=== PATIENT | male | born 1970 | race Caucasian/White ===

== ENCOUNTER 2018-04-02 11:09 | Inpatient (IN) | payer OTHER ==
[~2018-04-02] VITALS: Ht 177.8 cm; Wt 121.6 kg
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
--- OUTSIDE RECORDS SUMMARY | 2018-04-02 11:15 | XMS REPORT ---
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 Active 292080079 Problem Moderate persistent asthma without complication J45.40 Active 548699153 Problem Essential hypertension I10 Active 31843621 Problem Type 2 diabetes mellitus with diabetic neuropathy E11.40 Active 62468969 Problem Chronic bronchitis J42 Active 60702606 Problem Type 2 diabetes mellitus without complication, without long-term current use of insulin E11.9 Active 998755358 Problem Neuropathy G62.9 Active 935216559 ALLERGIES Unknown Allergies SOCIAL HISTORY No smoking Hx information available PLAN OF CARE VITAL SIGNS MEDICATIONS Medication Instructions Dosage Frequency Start Date End Date Duration Status Levemir 100 UNIT/ML Subcutaneous 2 times a day 35 units 12h Nov, 30 days Active RESULTS No Results PROCEDURES No Known procedures IMMUNIZATIONS No Known Immunizations
--- OUTSIDE RECORDS SUMMARY | 2018-04-02 11:15 | XMS REPORT ---
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 Active 823455191 Problem Moderate persistent asthma without complication J45.40 Active 754790634 Problem Essential hypertension I10 Active 74257864 Problem Type 2 diabetes mellitus with diabetic neuropathy E11.40 Active 80472306 Problem Chronic bronchitis J42 Active 76673855 Problem Type 2 diabetes mellitus without complication, without long-term current use of insulin E11.9 Active 854513025 Problem Neuropathy G62.9 Active 855315018 ALLERGIES No Information SOCIAL HISTORY Never Assessed PLAN OF CARE VITAL SIGNS MEDICATIONS Medication Instructions Dosage Frequency Start Date End Date Duration Status Levemir 100 UNIT/ML Subcutaneous 2 times a day Inject 35 units 12h Nov, 90 days Active Breo Ellipta 200-25 MCG/INH Inhalation Once a day 1 puff 24h Nov, 90 days Active Humalog KwikPen 100 UNIT/ML Subcutaneous 3 times a day Inject 10 units before meals 8h Nov, 90 days Active Trulicity 0.75 MG/0.5ML Subcutaneous once weekly Inject 0.5 ml Nov, 90 days Active RESULTS No Results PROCEDURES No Known procedures IMMUNIZATIONS No Known Immunizations MEDICAL (GENERAL) HISTORY [...]
--- OUTSIDE RECORDS SUMMARY | 2018-04-02 11:15 | XMS REPORT ---
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 Active 217754304 Problem Moderate persistent asthma without complication J45.40 Active 941229705 Problem Essential hypertension I10 Active 72252920 Problem Type 2 diabetes mellitus with diabetic neuropathy E11.40 Active 61572531 Problem Chronic bronchitis J42 Active 47244312 Problem Type 2 diabetes mellitus without complication, without long-term current use of insulin E11.9 Active 610516367 Problem Neuropathy G62.9 Active 218108616 ALLERGIES Unknown Allergies SOCIAL HISTORY No smoking Hx information available PLAN OF CARE VITAL SIGNS MEDICATIONS Unknown Medications RESULTS No Results PROCEDURES No Known procedures IMMUNIZATIONS No Known Immunizations
--- OUTSIDE RECORDS SUMMARY | 2018-04-02 11:15 | XMS REPORT ---
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 Active 175939951 Problem Moderate persistent asthma without complication J45.40 Active 954897116 Problem Essential hypertension I10 Active 25029664 Problem Type 2 diabetes mellitus with diabetic neuropathy E11.40 Active 79551019 Problem Chronic bronchitis J42 Active 67898948 Problem Type 2 diabetes mellitus without complication, without long-term current use of insulin E11.9 Active 690507711 Problem Neuropathy G62.9 Active 559795299 ALLERGIES Substance Reaction Event Type Date Status Gabapentin suicidal ideations Drug Allergy Nov, Active SOCIAL HISTORY Never Assessed PLAN OF CARE Activity Details Follow Up 3 Months Reason:DM VITAL SIGNS Height 70 in 2016-12-12 Weight 289.0 lbs 2016-12-12 Temperature 98.5 degrees Fahrenheit 2016-12-12 Heart Rate 112 bpm 2016-12-12 Respiratory Rate 20 2016-12-12 BMI 41.46 kg/m2 2016-12-12 Blood pressure systolic 136 mmHg 2016-12-12 Blood pressure diastolic 90 mmHg 2016-12-12 MEDICATIONS Medication Instructions Dosage Frequency Start Date End Date Duration Status Breo Ellipta 200-25 MCG/INH Inhalation Once a day 1 puff 24h Nov, Active Lisinopril 20 mg Orally Once a day 1 tablet 24h Nov, 90 days Active Humalog KwikPen 100 UNIT/ML Subcutaneous 3 times a day before meals. Inject 10 units Nov, Active Trulicity 0.75 MG/0.5ML 0.5 ml Nov, Active Levemir 100 UNIT/ML Subcutaneous 2 times a [...]
--- OUTSIDE RECORDS SUMMARY | 2018-04-02 11:15 | XMS REPORT ---
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 Active 849294992 Problem Moderate persistent asthma without complication J45.40 Active 497572304 Problem Essential hypertension I10 Active 77879061 Problem Type 2 diabetes mellitus with diabetic neuropathy E11.40 Active 42024994 Problem Chronic bronchitis J42 Active 00968812 Problem Type 2 diabetes mellitus without complication, without long-term current use of insulin E11.9 Active 843918441 Problem Neuropathy G62.9 Active 595523958 ALLERGIES Unknown Allergies SOCIAL HISTORY No smoking Hx information available PLAN OF CARE VITAL SIGNS MEDICATIONS Unknown Medications RESULTS No Results PROCEDURES No Known procedures IMMUNIZATIONS No Known Immunizations
--- NOTE | 2018-04-02 11:31 | ED Cough/URI ---
General Chief Complaint: Respiratory Problems Stated Complaint: BREATHING DIFFICULTIES,COUGH,LEGS SWOLLEN Source: patient Exam Limitations: no limitations History of Present Illness Date Seen by Provider: Apr 02, 2018 Time Seen by Provider: 11:28 Initial Comments to ER with a 3 week history ofcough, shortness of breath. He's been unable to sleep at night due to the cough. He reports yellowish colored sputum, general malaise, shortness of breath, swelling in both of his legs. He sees Dr. Floyd Cooper has not seen her for this issue. States that he has diabetes but does not take any medications. Severity/Quality: moderate Associated Symptoms: cough, fever/chills, shortness of breath Allergies and Home Medications Allergies Coded Allergies: gabapentin (Verified Allergy, Unknown, 04/02/18) Patient Home Medication List Home Medication List Reviewed: Yes Review of Systems Constitutional: see HPI EENTM: see HPI Respiratory: see HPI, cough, short of breath Cardiovascular: edema Genitourinary: no symptoms reported Musculoskeletal: no symptoms reported Skin: no symptoms reported Psychiatric/Neurological: No Symptoms Reported Hematologic/Lymphatic: No Symptoms Reported Past Kyminqx-Nwnekd-Aysbnf Hx Patient Social History Recent Foreign Travel: No Contact w/Someone Who Travel: No Physical Exam Vital Signs Vital Signs - First Documented 04/02/18 11:20 Temp 97.7 Pulse 109 Resp 18 B/P (MAP) 141/102 (115) Pulse Ox 93 O2 Delivery Room Air Capillary Refill : General Appearance: WD/WN, no apparent distress, other (pale,frail-appearing. Atrophied thenar eminences both hands. Walks with a cane.) HEENT: PERRL/EOMI, normal ENT inspection Respiratory: normal breath sounds, no respiratory distress, no accessory muscle use Cardiovascular: regular rate, rhythm, no murmur, tachycardia Gastrointestinal: normal bowel sounds, non tender, soft Extremities: pedal edema (1+ bilateral lower extremities) Neurologic/Psychiatric: alert, normal mood/affect, oriented x 3 Skin: warm/dry, other (pale) Progress/Results/Core Measures Suspected Sepsis SIRS Temperature: Pulse: Respiratory Rate: Laboratory Tests 04/02/18 11:25: White Blood Count 8.0 Blood Pressure / Mean: Laboratory Tests 04/02/18 11:25: Creatinine 0.77, Platelet Count 345, Total Bilirubin 0.4 Results/Orders Lab Results Laboratory Tests Test 04/02/18 11:25 Range/Units White Blood Count 8.0 4.3-11.0 10^3/uL Red Blood Count 4.61 4.35-5.85 10^6/uL Hemoglobin 13.4 13.3-17.7 G/DL Hematocrit 39 L 40-54 % Mean Corpuscular Volume 85 80-99 FL Mean Corpuscular Hemoglobin 29 25-34 PG Mean Corpuscular Hemoglobin Concent 34 32-36 G/DL Red Cell Distribution Width 13.6 10.0-14.5 % Platelet Count 345 130-400 10^3/uL Mean Platelet Volume 8.7 7.4-10.4 FL Neutrophils (%) (Auto) 74 42-75 % Lymphocytes (%) (Auto) 15 12-44 % Monocytes (%) (Auto) 10 0-12 % Eosinophils (%) (Auto) 1 0-10 % Basophils (%) (Auto) 0 0-10 % Neutrophils # (Auto) 5.9 1.8-7.8 X 10^3 Lymphocytes # (Auto) 1.2 1.0-4.0 X 10^3 Monocytes # (Auto) 0.8 0.0-1.0 X 10^3 Eosinophils # (Auto) 0.1 0.0-0.3 10^3/uL Basophils # (Auto) 0.0 0.0-0.1 10^3/uL D-Dimer 2.15 H 0.00-0.49 UG/ML Sodium Level 134 L 135-145 MMOL/L Potassium Level 3.6 3.6-5.0 MMOL/L Chloride Level 93 L 98-107 MMOL/L Carbon Dioxide Level 29 21-32 MMOL/L Anion Gap 12 5-14 MMOL/L Blood Urea Nitrogen 7 7-18 MG/DL Creatinine 0.77 0.60-1.30 MG/DL Estimat Glomerular Filtration Rate > 60 BUN/Creatinine Ratio 9 Glucose Level 428 *H 70-105 MG/DL Calcium Level 9.2 8.5-10.1 MG/DL Total Bilirubin 0.4 0.1-1.0 MG/DL Aspartate Amino Transf (AST/SGOT) 13 5-34 U/L Alanine Aminotransferase (ALT/SGPT) 13 0-55 U/L Alkaline Phosphatase 90 40-136 U/L Troponin I < 0.30 <0.30 NG/ML B-Type Natriuretic Peptide 34.2 <100.0 PG/ML Total Protein 7.7 6.4-8.2 GM/DL Albumin 3.3 3.2-4.5 GM/DL My Orders Orders - APPLE DELA CRUZ APRN Cbc With Automated Diff (04/02/18 11:26) Comprehensive Metabolic Panel (04/02/18 11:26) Troponin I (04/02/18 11:26) Ekg Tracing (04/02/18 11:26) Chest Pa/Lat (2 View) (04/02/18 11:26) Ua Culture If Indicated (04/02/18 11:26) BNP (04/02/18 11:26) Iv Heplock-Insert (Order) (04/02/18 11:26) Fibrin Degradation Products (04/02/18 11:35) Ct Angio Chest W (04/02/18 11:55) Iohexol Injection (Omnipaque 350 Mg/Ml 1 (04/02/18 12:00) Ns (Ivpb) (Sodium Chloride 0.9%) (04/02/18 12:00) Pharmacy Communication (Pharmacy Communi (04/02/18 12:00) Ns Iv 1000 Ml (Sodium Chloride 0.9%) (04/02/18 12:15) Insulin (Regular) Human (Humulin R (Per (04/02/18 12:15) Ondansetron Injection (Zofran Injectio (04/02/18 12:45) Medications Given in ED Current Medications Medications Dose Ordered Sig/Nena Route Start Time Stop Time Status Last Admin Dose Admin Insulin Human Regular 10 unit ONCE ONCE IV 04/02/18 12:15 04/02/18 12:16 DC 04/02/18 12:30 10 UNIT Iohexol 125 ml ONCE ONCE IV 04/02/18 12:00 04/02/18 12:01 DC 04/02/18 12:38 125 ML Ondansetron HCl 4 mg ONCE ONCE IVP 04/02/18 12:45 04/02/18 12:46 DC 04/02/18 12:43 4 MG Sodium Chloride 250 ml ONCE ONCE IV 04/02/18 12:00 04/02/18 12:01 DC 04/02/18 12:38 80 ML Vital Signs/I&O 04/02/18 11:20 Temp 97.7 Pulse 109 Resp 18 B/P (MAP) 141/102 (115) Pulse Ox 93 O2 Delivery Room Air Capillary Refill : Diagnostic Imaging Diagonstic Imaging: Xray Plain Films/CT/US/NM/MRI: chest Comments NAME: VANESSA PÉREZ [facility] REC#: [id number] PT STATUS: REG ER : 1970 PHYSICIAN: APPLE DELA CRUZ APRN ADMIT DATE: 04/02/18/ER Draft Date of Exam:04/02/18 CHEST PA/LAT (2 VIEW) INDICATION: Respiratory distress with difficulty breathing PA and lateral chest Heart size and pulmonary vascularity are normal. There is a right pleural effusion and there is partial right lower lobe atelectasis. Left lung is clear. Heart size and pulmonary vascularity are normal. IMPRESSION: Right lower lobe atelectasis with associated effusion. Dictated on workstation # [id number] Dict: 04/02/18 1144 Trans: 04/02/18 1148 [facility] [id number] Interpreted by: CHUYITA LUNDBERG MD Electronically signed by: Departure Communication (Admissions) Time/Spoke to Admitting Phy: 13:[address] Brown. She agrees to admit. We will consult Dr. De Leon. Discussed the CT finding with Dr. Abbasi. States the right lower lobe appears to be collapsed and he feels the patient would benefit from bronchoscopy to determine whether this is from neoplasm with associated adenopathy or if this is from mucus plugging with reactive adenopathy. Time/Spoke to Consulting Phy: 13:[address] De Leon of consult.he agrees. Impression Primary Impression: RLL pneumonia Additional Impression: Hilar lymphadenopathy Disposition: ADMITTED INPATIENT Condition: Stable Admissions Decision to Admit Reason: Admit from ER (General) Decision to Admit/Date: Apr 02, 2018 Time/Decision to Admit Time: 13:41 Departure-Patient Inst. Decision time for Depature: 13:41 Referrals: FLOYD MONTELONGO MD (PCP/Family) Primary Care Physician APPLE DELA CRUZ APRN Apr 02, 2018 11:31
[2018-04-02 11:36] LABS: BASOPHILS % (AUTO) 0 % (0-10); EOSINOPHILS # (AUTO) 0.1 10^3/uL (0.0-0.3); EOSINOPHILS % (AUTO) 1 % (0-10); HEMATOCRIT 39 % (40-54); HEMOGLOBIN 13.4 G/DL (13.3-17.7); LYMPHOCYTES # (AUTO) 1.2 X 10^3 (1.0-4.0); LYMPHOCYTES % (AUTO) 15 % (12-44); MEAN CORPUSCULAR HEMOGLOBIN 29 PG (25-34); MEAN CORPUSCULAR HGB CONC 34 G/DL (32-36); MEAN CORPUSCULAR VOLUME 85 FL (80-99); MEAN PLATELET VOLUME 8.7 FL (7.4-10.4); MONOCYTES # (AUTO) 0.8 X 10^3 (0.0-1.0); MONOCYTES % (AUTO) 10 % (0-12); NEUTROPHILS # (AUTO) 5.9 X 10^3 (1.8-7.8); NEUTROPHILS % (AUTO) 74 % (42-75); PLATELET COUNT 345 10^3/uL (130-400); RED BLOOD COUNT 4.61 10^6/uL (4.35-5.85); RED CELL DISTRIBUTION WIDTH 13.6 % (10.0-14.5)
--- NOTE | 2018-04-02 11:48 | Diagnostic Imaging Report ---
INDICATION: Respiratory distress with difficulty breathing PA and lateral chest Heart size and pulmonary vascularity are normal. There is a right pleural effusion and there is partial right lower lobe atelectasis. Left lung is clear. Heart size and pulmonary vascularity are normal. IMPRESSION: Right lower lobe atelectasis with associated effusion. Dictated by: Dictated on workstation # [id number]
[2018-04-02 11:58] LABS: ALANINE AMINOTRANSFERASE 13 U/L (0-55); ALBUMIN 3.3 GM/DL (3.2-4.5); ALKALINE PHOSPHATASE 90 U/L (40-136); BILIRUBIN,TOTAL 0.4 MG/DL (0.1-1.0); BUN/CREATININE RATIO 9; CALCIUM 9.2 MG/DL (8.5-10.1); CARBON DIOXIDE 29 MMOL/L (21-32); CHLORIDE 93 MMOL/L (98-107); CREATININE SERUM 0.77 MG/DL (0.60-1.30); GFR ESTIMATED > 60; POTASSIUM 3.6 MMOL/L (3.6-5.0); SODIUM 134 MMOL/L (135-145); TOTAL PROTEIN 7.7 GM/DL (6.4-8.2)
[2018-04-02 11:59] LABS: GLUCOSE 428 MG/DL (70-105)
[2018-04-02] MEDS ORDERED: IOHEXOL 350 MG/ML 150 ML (OMNIPAQUE 350) VIAL IV ONE (12:00)
[2018-04-02] MEDS ORDERED: NS 250 ML (IVPB) BAG IV ONE (12:00)
[2018-04-02] MEDS ORDERED: inSUlin (REGULAR) HUMAN 1 UNIT/0.01 ML (CHARGE PER UNIT) IV ONE (12:15)
[2018-04-02] MEDS ORDERED: NS IV 1000 ML 1,000 ML IV SCH (12:15)
[2018-04-02] MEDS ORDERED: ONDANSETRON 4 MG/2 ML (SDV) Z0FRAN IVP ONE (12:45)
--- NOTE | 2018-04-02 14:14 | Diagnostic Imaging Report ---
PROCEDURE: CT angiography of the chest with contrast. TECHNIQUE: Multiple contiguous axial images were obtained through the chest after uneventful bolus administration of intravenous contrast. Reconstructed CTA MIP acquisitions were also performed. INDICATION: Shortness of breath. There are no previous CTA chest examinations available for comparison. The plain film examination of the chest performed earlier today noted right lower lobe pneumonia/atelectasis and a right pleural effusion. On this study there is near-complete collapse of the right lower lobe. There is also fluid in the right lung measuring 2.1 CM in maximum depth.. There do appear to be a number of enlarged lymph nodes in the subcarinal region and in the right hilum. This includes a 2.3 x 3.9 CM subcarinal lymph node and a 1.9 x 2.7 CM right hilar lymph node. These lymph nodes are nonspecific but worrisome for neoplasm. The possibility that there is an endobronchial lesion or a mucous plug not visualized on this exam should also be considered. Bronchoscopy would be recommended for further evaluation. The lungs are otherwise clear and well aerated. There is no other evidence for pneumonia or for a pleural effusion and there is no sign of failure. There is no parenchymal lung mass identified either. Unfortunately, the pulmonary arteries are not well opacified difficult to evaluate for an embolus. There is no obvious defect within the pulmonary arteries to indicate a pulmonary embolus. Aorta is not normally dilated and there is no sign of a dissection. The heart size is within normal limits. A few sparse coronary artery calcifications are evident. There are also a few borderline enlarged pretracheal nodes on the right. The largest of these measures 1.2 x 1.6 CM. These are nonspecific in appearance. The thyroid gland is generally unremarkable where visualized. The sections through the upper abdomen show that the liver is of lower density than usually seen. The liver is not visualized in its entirety but t does appear to be at least borderline enlarged. The low density appearance of liver does suggest fatty metamorphosis. The upper abdomen is otherwise unremarkable for an acute abnormality. The bone windows show no sign of a fracture or of for a destructive lesion. IMPRESSION: 1. There is near-complete collapse of the right lower lobe with a small right effusion. The reason for the collapsed right lower lobe is not certain could be secondary to a neoplastic mass as there does appear to be right hilar and subcarinal adenopathy. The possibility of a mucous plug should also be considered. Bronchoscopy would be recommended for further study. 2. There is no acute cardiopulmonary abnormality noted otherwise. The pulmonary arteries were not well opacified however and difficult to evaluate for an embolus. 3. The liver is enlarged and low density appearance of liver does suggest fatty metamorphosis. These results were discussed with Alex Herman APRN in the ER. Dictated by: Dictated on workstation # [id number]
[2018-04-02 14:35] VITALS: BP 144/72
[2018-04-02] MEDS ORDERED: AZITHROMYCIN 500 MG/NS 250 ML IVPB IV NR ×2 (14:42)
[2018-04-02] MEDS ORDERED: CATHETER FLUSH 10 ML SYR IV PRN (14:45)
[2018-04-02 14:46] VITALS: BP 144/72
[2018-04-02] MEDS ORDERED: RT-ALBUTEROL/IPRATROPIUM 3 ML (DUONEB) VIAL ONE (15:00)
[2018-04-02] MEDS: cefTRIAXone 1 GM/NS 50 ML IVPB IV SCH ×2 (15:03)
[2018-04-02] MEDS: NS IV 1000 ML 1,000 ML IV SCH (15:06)
[2018-04-02] MEDS: RT-ALBUTEROL/IPRATROPIUM 3 ML (DUONEB) VIAL INH SCH ×3 (15:14→22:17)
[2018-04-02] MEDS ORDERED: RT-ALBUTEROL/IPRATROPIUM 3 ML (DUONEB) VIAL INH PRN (15:15)
[2018-04-02] MEDS: KETOROLAC 30 MG/ML VIAL IVP PRN (15:31)
[2018-04-02] MEDS: guaiFENesin (MUCINEX) 600 MG TAB PO SCH ×2 (15:31→21:23)
[2018-04-02 15:55] VITALS: BP 164/82
[2018-04-02] MEDS ORDERED: inSUlin (REGULAR) HUMAN 1 UNIT/0.01 ML (CHARGE PER UNIT) SC SCH (16:00)
[2018-04-02] MEDS: BENZONATATE 100 MG (TESSALON) CAPSULE PO SCH ×2 (16:04→21:23)
[2018-04-02] MEDS: HYDROCODONE/CHLOR 10MG/5 ML (TUSSIONEX SUSP) 5ML UDC PO PRN (16:05)
[2018-04-02 19:15] VITALS: BP 115/59
[2018-04-02] MEDS ORDERED: ALPRAZolam 0.25 MG (XANAX) TAB PO PRN (20:30)
[2018-04-02] MEDS ORDERED: ACETAMINOPHEN 500 MG TAB (TYLENOL) PO PRN (20:30)
[2018-04-02] MEDS ORDERED: IBUPROFEN TABLET 200 MG TAB PO PRN (20:30)
[2018-04-02] MEDS ORDERED: HYDROCODONE/CHLOR 10MG/5 ML (TUSSIONEX SUSP) 5ML UDC PO PRN (21:00)
[2018-04-02] MEDS ORDERED: BENZONATATE 100 MG (TESSALON) CAPSULE PO SCH (21:00)
[2018-04-02] MEDS: inSUlin ASPART (NovoLOG) 1 UNIT/0.01 ML (CHARGE PER UNIT) SC SCH (21:24)
[2018-04-02] MEDS: inSUlin DETERMIR 1 UNIT/0.01 ML (LEVEMIR) CHARGE PER UNIT SQ SCH (21:24)
[2018-04-03] VITALS (7 sets, daily range): BP systolic 123–145; BP diastolic 75–86
[2018-04-03] MEDS: NS IV 1000 ML 1,000 ML IV SCH ×2 (00:26→08:02)
[2018-04-03] MEDS: RT-ALBUTEROL/IPRATROPIUM 3 ML (DUONEB) VIAL INH SCH ×6 (02:01→21:51)
[2018-04-03] MEDS: KETOROLAC 30 MG/ML VIAL IVP PRN ×3 (04:38→20:50)
[2018-04-03] MEDS: HYDROCODONE/CHLOR 10MG/5 ML (TUSSIONEX SUSP) 5ML UDC PO PRN ×2 (04:41→15:48)
--- NOTE | 2018-04-03 05:45 | Pulmonary Consultation ---
History of Present Illness History of Present Illness Date of Consultation 04/03/18 05:40 Time Seen by Provider: 05:40 Date of Admission History of Present Illness 47yo with hx of morbid obesity, DM, noncompliant with medications presented to ED secondary to worsening SOB, and cough. He has had a SPC with yellow sputum that has been waking him up at night. CT scan shows small right pleural effusion , collapse of RML secondary to mass vs mucous plugging. No prior hx like this before. Pt states he has been coughing up red/bloody mucous. Pt has lost 20lbs. He does admit to dysphagia. He states he choked on food last night but denies any possible aspiration prior to admission. I am consulted for pulmonary management. Allergies and Home Medications Allergies Coded Allergies: gabapentin (Verified Allergy, Unknown, 04/02/18) Home Medications No Active Prescriptions or Reported Meds Past Srmsuzf-Aibazn-Zuxdzx Hx Patient Social History Alcohol Use: Rarely Uses Number of Drinks Today: 0 Recreational Drug Use: No Smoking Status: Former Smoker Former Smoker, Quit: Oct 28, 2007 2nd Hand Smoke Exposure: No Recent Foreign Travel: No Contact w/Someone Who Travel: No Recent Infectious Disease Expo: No Recent Hopitalizations: No Physical Abuse: No Sexual Abuse: No Seasonal Allergies Seasonal Allergies: No Past Medical History Surgeries: Yes (RIGHT ARM( TITANIUM IRON)) Orthopedic Respiratory: Yes (WHEN CHILD) Asthma, Pneumonia, Chronic Bronchitis, Sleep Apnea Currently Using CPAP: No Currently Using BIPAP: No Cardiac: No Neurological: Yes (LEFT DROP FOOT, SCIATIA,) Genitourinary: No Gastrointestinal: No Musculoskeletal: Yes Arthritis, Foot Drop, Fractures Endocrine: Yes Diabetes, Non-Insulin dep HEENT: No Cancer: No Psychosocial: Yes Anxiety, Depression Nursing Suicide Risk Score: 0 Integumentary: No Blood Disorders: No Family Medical History Cardiovascular disease 19 FATHER FH: cancer 19 MOTHER Review of Systems Time Seen by Provider: 06:15 Constitutional: Weakness, Malaise; No: Fever, Chills, Sweats, Other Eyes: No: Pain, Vision change, Conjunctivae inflammation, Eyelid inflammation, Other, Redness ENT: Nose congestion; No: Ear pain, Ear discharge, Nose pain, Nose discharge, Mouth pain, Mouth swelling, Throat pain, Throat swelling, Other Respiratory: Cough, Shortness of breath, SOB with excertion, Wheezing, Hemoptysis Cardiovascular: Paroxysmal Noc. Dyspnea Gastrointestinal: No: Nausea, Vomiting, Abdominal Pain, Diarrhea, Constipation , Melena, Hematochezia, Other Genitourinary: No Dysuria, No Frequency, No Incontinence, No Hematuria, No Retention, No Other Neurological: Weakness Exam Exam Vital Signs Date Time Temp Pulse Resp B/P (MAP) Pulse Ox O2 Delivery O2 Flow Rate FiO2 04/03/18 02:01 Room Air 04/03/18 00:00 97.5 98 18 144/82 (102) 97 Room Air 04/02/18 22:17 94 Room Air 04/02/18 20:15 Room Air 04/02/18 19:15 97.7 111 20 115/59 (77) 92 Room Air 04/02/18 18:59 93 Room Air 04/02/18 16:33 94 Room Air 04/02/18 15:55 98.9 104 18 164/82 (109) 94 Room Air 04/02/18 15:16 93 Room Air 04/02/18 15:15 93 04/02/18 14:46 97.2 105 22 144/72 (96) 94 Room Air 04/02/18 14:35 97.2 103 22 144/72 (96) 94 Room Air 04/02/18 14:20 97.7 109 18 141/102 93 04/02/18 14:09 97.7 109 18 141/102 (115) 93 04/02/18 11:20 97.7 109 18 141/102 (115) 93 Room Air I & O 04/03/18 07:00 Intake Total 2340 ml Balance 2340 ml General Appearance: No Apparent Distress, WD/WN, Anxious HEENT: PERRL/EOMI, Normal ENT Inspection, Pharynx Normal Neck: Full Range of Motion, Normal Inspection, Non Tender, Supple Respiratory: Chest Non Tender, No Accessory Muscle Use, No Respiratory Distress , Decreased Breath Sounds; No Respiratory Distress Cardiovascular: Regular Rate, Rhythm, No Edema, No Gallop Capillary Refill: Less Than 3 Seconds Gastrointestinal: normal bowel sounds, non tender, soft Extremity: Normal Capillary Refill, Normal Inspection Neurologic/Psychiatric: Alert, Oriented x3 Skin: Normal Color, Warm/Dry Lymphatic: No Adenopathy Results Lab Laboratory Tests 04/02/18 11:25 Assessment/Plan Assessment/Plan Atelectasis with endobronchial mass vs mucous plugging -Pt needs bronchoscopy - bronch for tomorrow morning 7AM Dysphagia -Will make NPO for now -swallow evaluation Morbid obesity with probable undiagnosed SOLOMON -Will work up as out patient Hyponatremia -monitor Labs and radiology reviewed. Will d/w Dr. Brown and also endoscopy to schedule bronchoscopy. 255 RAFIQ DE LA FUENTE DO Apr 03, 2018 05:45
[2018-04-03 05:54] LABS: BASOPHILS % (AUTO) 0 % (0-10); EOSINOPHILS # (AUTO) 0.1 10^3/uL (0.0-0.3); EOSINOPHILS % (AUTO) 2 % (0-10); HEMATOCRIT 40 % (40-54); HEMOGLOBIN 12.9 G/DL (13.3-17.7); LYMPHOCYTES # (AUTO) 1.8 X 10^3 (1.0-4.0); LYMPHOCYTES % (AUTO) 25 % (12-44); MEAN CORPUSCULAR HEMOGLOBIN 28 PG (25-34); MEAN CORPUSCULAR HGB CONC 32 G/DL (32-36); MEAN CORPUSCULAR VOLUME 87 FL (80-99); MONOCYTES # (AUTO) 0.7 X 10^3 (0.0-1.0); MONOCYTES % (AUTO) 10 % (0-12); NEUTROPHILS # (AUTO) 4.6 X 10^3 (1.8-7.8); NEUTROPHILS % (AUTO) 64 % (42-75); PLATELET COUNT 342 10^3/uL (130-400); RED BLOOD COUNT 4.57 10^6/uL (4.35-5.85); RED CELL DISTRIBUTION WIDTH 14.1 % (10.0-14.5); WHITE BLOOD COUNT 7.3 10^3/uL (4.3-11.0)
[2018-04-03] MEDS: inSUlin ASPART (NovoLOG) 1 UNIT/0.01 ML (CHARGE PER UNIT) SC SCH ×4 (05:59→20:51)
[2018-04-03 06:46] LABS: ALANINE AMINOTRANSFERASE 11 U/L (0-55); ALBUMIN 3.1 GM/DL (3.2-4.5); ALKALINE PHOSPHATASE 76 U/L (40-136); BILIRUBIN,TOTAL 0.3 MG/DL (0.1-1.0); BUN/CREATININE RATIO 9; CALCIUM 8.7 MG/DL (8.5-10.1); CARBON DIOXIDE 26 MMOL/L (21-32); CHLORIDE 99 MMOL/L (98-107); CREATININE SERUM 0.64 MG/DL (0.60-1.30); GFR ESTIMATED > 60; GLUCOSE 204 MG/DL (70-105); POTASSIUM 3.2 MMOL/L (3.6-5.0); SODIUM 139 MMOL/L (135-145); TOTAL PROTEIN 7.1 GM/DL (6.4-8.2)
[2018-04-03] MEDS: AZITHROMYCIN 250 MG TAB (ZITHROMAX) PO SCH (08:02)
[2018-04-03] MEDS: BENZONATATE 100 MG (TESSALON) CAPSULE PO SCH ×3 (08:02→20:50)
[2018-04-03] MEDS: guaiFENesin (MUCINEX) 600 MG TAB PO SCH ×2 (08:04→20:50)
[2018-04-03] MEDS: cefTRIAXone 1 GM/NS 50 ML IVPB IV SCH ×2 (08:05)
[2018-04-03] MEDS: KCL 10 MEQ TAB (MICRO K) PO SCH ×3 (10:38→12:24)
--- NOTE | 2018-04-03 10:50 | History & Physical-Hospitalist ---
History of Present Illness HPI/Chief Complaint CC: Cough with chest pain HPI: This is a 47-year-old white male clinic patient of Dr. Langston in [place] who has a past medical history of diabetes insulin-dependent but doesn't take insulin because of lack of insurance who presented to the ER with chest pain and cough found to have right lower lobe pneumonia with effusion and complete collapse of the right lower part of his lung due to effusion versus mass versus mucous plug. His cough is intense I given him antitussives that it helped a small amount. Dr. De Leon Fam consultation we'll perform bronchoscopy tomorrow and management will ensue from those results. He was placed on Rocephin and Zithromax for community-acquired pneumonia but microbiology just notified me that the blood cultures show gram-negative alyson that could very well be Pseudomonas so we will discontinue Rocephin placed on cefepime and will evaluate the sensitivities to that culture tomorrow and narrow spectrum if needed. His sugar is been in the 400s so initiated insulin hemoglobin A1c is pending but likely will be greater than 16. Patient has had recurrent pneumonias and bronchial infections but this is the third episode in the last 2 months and is just getting worse and worse. Patient having signs of suspicion for bronchiectasis so will further evaluate and await for bronchoscopy performed by Dr. De Leon tomorrow. Source: patient Date Seen 04/03/18 Time Seen by Provider: 09:30 Attending Physician Ciera Brown Katrina M MD Referring Physician Date of Admission Apr 02, 2018 at 13:37 Home Medications & Allergies Home Medications Reviewed patient Home Medication Reconciliation performed by pharmacy medication reconciliations library media technician and/or nursing. Patients Allergies have been reviewed. Allergies Allergies Coded Allergies gabapentin (Verified Allergy, Unknown, 04/02/18) Past Smeddda-Enxumt-Yalqmo Hx Past Med/Social Hx: Reviewed Nursing Past Med/Soc Hx, Reviewed and Corrections made Patient Social History Marrital Status: Employed/Student: unemployed Alcohol Use: Rarely Uses Number of Drinks Today: 0 Recreational Drug Use: No Smoking Status: Former Smoker (quit 2007) Former Smoker, Quit: Oct 28, 2007 2nd Hand Smoke Exposure: No Physical Abuse Screen: No Sexual Abuse: No Recent Foreign Travel: No Contact w/other who traveled: No Recent Hopitalizations: No Recent Infectious Disease Expo: No Seasonal Allergies Seasonal Allergies: No Past Medical History Surgeries: Orthopedic Respiratory: Pneumonia Currently Using CPAP: No Currently Using BIPAP: No Musculoskeletal: Arthritis, Foot Drop, Fractures Endocrine: Diabetes, Insulin dep Psychosocial: Anxiety, Depression History of Blood Disorders: No Family History Cardiovascular disease 19 FATHER FH: cancer 19 MOTHER Diabetes Review of Systems Constitutional: see HPI, chills, diaphoresis, dizziness, fever, malaise, weakness EENTM: no symptoms reported Respiratory: cough, dyspnea on exertion, phlegm, wheezing Cardiovascular: chest pain Gastrointestinal: no symptoms reported Genitourinary: no symptoms reported Musculoskeletal: no symptoms reported Skin: no symptoms reported Psychiatric/Neurological: No Symptoms Reported All Other Systems Reviewed Negative Unless Noted: Yes Physical Exam Physical Exam Vital Signs Vital Signs - First Documented 04/02/18 11:20 Temp 97.7 Pulse 109 Resp 18 B/P (MAP) 141/102 (115) Pulse Ox 93 O2 Delivery Room Air Capillary Refill : Less Than 3 Seconds General Appearance: WD/WN, Chronically ill, Mild Distress, Obese Eyes: Bilateral Eye Normal Inspection, Bilateral Eye PERRL HEENT: PERRL/EOMI, Normal ENT Inspection, Pharynx Normal Neck: Full Range of Motion, Normal Inspection, Non Tender, Supple, Carotid Bruit Respiratory: Chest Non Tender, No Accessory Muscle Use, No Respiratory Distress , Crackles, Decreased Breath Sounds, Wheezing Cardiovascular: Regular Rate, Rhythm, No Edema, No Gallop, No JVD, No Murmur, Normal Peripheral Pulses Gastrointestinal: Normal Bowel Sounds, No Organomegaly, No Pulsatile Mass, Non Tender, Soft Back: Normal Inspection, No CVA Tenderness, No Vertebral Tenderness Extremity: Normal Capillary Refill, Normal Inspection, Normal Range of Motion, Non Tender, No Calf Tenderness, No Pedal Edema Neurologic/Psychiatric: Alert, Oriented x3, No Motor/Sensory Deficits, Depressed Affect Skin: Normal Color, Warm/Dry Lymphatic: No Adenopathy Results Results/Procedures Labs Laboratory Tests 04/02/18 11:25 04/03/18 05:00 Patient resulted labs reviewed. Assessment/Plan Admission Diagnosis Assessment: Right lower lobe effusion with collapse of lung tissue due to possible mass Suspicion for bronchiectasis Diabetes mellitus out of control due to noncompliance with insulin Plan: DC Rocephin and start cefepime Bronchoscopy tomorrow Antitussives Hep-locked IV fluid Ambulate Admission Status: Inpatient Order (span 2 midnights) Reason for Inpatient Admission: Lung mass and BCx + will require 3 days hospital stay Diagnosis/Problems Diagnosis/Problems (1) RLL pneumonia Status: Acute (2) Hilar lymphadenopathy Status: Acute (3) Mucus plugging of bronchi Status: Acute (4) Lung mass Status: Acute (5) Diabetes mellitus Status: Chronic Qualifiers: Diabetes mellitus type: type 2 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: with certified massage therapist use Diabetes mellitus complication status: without complication Qualified Codes: E11.9 - Type 2 diabetes mellitus without complications; 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
[2018-04-03] MEDS: CEFEPIME INJECTION 2,000 MG in NS (IVPB) 50 ML IV SCH ×2 (12:21→23:35)
[2018-04-03] MEDS ORDERED: FLUT1DIS26 IH (13:10)
[2018-04-03] MEDS ORDERED: INSU100I29 SQ (13:10)
[2018-04-03] MEDS: fentaNYL INJECTION 100 MCG/2 ML AMP IVP PRN ×2 (15:48→22:07)
[2018-04-03] MEDS: inSUlin DETERMIR 1 UNIT/0.01 ML (LEVEMIR) CHARGE PER UNIT SQ SCH (20:50)
[2018-04-04] MEDS: RT-ALBUTEROL/IPRATROPIUM 3 ML (DUONEB) VIAL INH SCH ×3 (01:32→10:29)
[2018-04-04 03:35] VITALS: BP 131/74
--- NOTE | 2018-04-04 05:42 | Pulmonary Progress Note ---
Subjective Time Seen by Provider: 05:42 Subjective/Events-last exam No complications noted. Focused Exam Lactate Level 04/02/18 13:55: Lactic Acid Level 1.19 Exam Exam Vital Signs Date Time Temp Pulse Resp B/P (MAP) Pulse Ox O2 Delivery O2 Flow Rate FiO2 04/04/18 03:35 97.7 87 18 131/74 (93) 96 Room Air 04/04/18 01:33 96 Room Air 04/03/18 23:53 97.3 96 18 133/75 (94) 96 Room Air 04/03/18 21:51 96 Room Air 04/03/18 21:00 Room Air 04/03/18 20:32 97.6 109 16 139/76 (97) 95 04/03/18 18:50 95 Room Air 04/03/18 16:43 97.8 111 16 142/85 (104) 97 Room Air 04/03/18 14:22 93 Room Air 04/03/18 11:55 97.6 108 22 123/78 (93) 94 Room Air 04/03/18 10:35 95 Room Air 04/03/18 08:00 96.4 88 18 145/86 (105) 95 Room Air 04/03/18 06:44 94 Room Air I & O 04/04/18 07:00 Intake Total 3260 ml Balance 3260 ml General Appearance: WD/WN, Chronically ill, Mild Distress, Obese HEENT: PERRL/EOMI, Normal ENT Inspection, Pharynx Normal Neck: Full Range of Motion, Normal Inspection, Non Tender, Supple, Carotid Bruit Respiratory: Chest Non Tender, No Accessory Muscle Use, No Respiratory Distress , Crackles, Decreased Breath Sounds, Wheezing Cardiovascular: Regular Rate, Rhythm, No Edema, No Gallop, No JVD, No Murmur, Normal Peripheral Pulses Capillary Refill: Less Than 3 Seconds Gastrointestinal: normal bowel sounds, non tender, soft Extremity: Normal Capillary Refill, Normal Inspection, Normal Range of Motion, Non Tender, No Calf Tenderness, No Pedal Edema Neurologic/Psychiatric: Alert, Oriented x3, No Motor/Sensory Deficits, Depressed Affect Skin: Normal Color, Warm/Dry Lymphatic: No Adenopathy Results Lab Laboratory Tests 04/02/18 11:25 04/03/18 05:00 Assessment/Plan Assessment/Plan Atelectasis with endobronchial mass vs mucous plugging -Pt needs bronchoscopy - bronchoscopy this AM Dysphagia -Will make NPO for now -swallow evaluation Morbid obesity with probable undiagnosed SOLOMON -Will work up as out patient Hyponatremia -monitor 233 RAFIQ DE LA FUENTE DO Apr 04, 2018 05:42
[2018-04-04] MEDS: KETOROLAC 30 MG/ML VIAL IVP PRN (05:51)
[2018-04-04 05:59] LABS: BASOPHILS % (AUTO) 1 % (0-10); EOSINOPHILS # (AUTO) 0.2 10^3/uL (0.0-0.3); EOSINOPHILS % (AUTO) 3 % (0-10); HEMATOCRIT 36 % (40-54); LYMPHOCYTES # (AUTO) 2.1 X 10^3 (1.0-4.0); LYMPHOCYTES % (AUTO) 34 % (12-44); MEAN CORPUSCULAR HEMOGLOBIN 29 PG (25-34); MEAN CORPUSCULAR HGB CONC 33 G/DL (32-36); MEAN CORPUSCULAR VOLUME 87 FL (80-99); MONOCYTES # (AUTO) 0.6 X 10^3 (0.0-1.0); MONOCYTES % (AUTO) 10 % (0-12); NEUTROPHILS # (AUTO) 3.2 X 10^3 (1.8-7.8); NEUTROPHILS % (AUTO) 52 % (42-75); PLATELET COUNT 270 10^3/uL (130-400); RED BLOOD COUNT 4.13 10^6/uL (4.35-5.85); RED CELL DISTRIBUTION WIDTH 13.9 % (10.0-14.5); WHITE BLOOD COUNT 6.1 10^3/uL (4.3-11.0)
[2018-04-04 06:20] LABS: ALANINE AMINOTRANSFERASE 18 U/L (0-55); ALBUMIN 2.7 GM/DL (3.2-4.5); ALKALINE PHOSPHATASE 93 U/L (40-136); BILIRUBIN,TOTAL 0.2 MG/DL (0.1-1.0); BUN/CREATININE RATIO 15; CALCIUM 8.5 MG/DL (8.5-10.1); CARBON DIOXIDE 26 MMOL/L (21-32); CHLORIDE 101 MMOL/L (98-107); CREATININE SERUM 0.61 MG/DL (0.60-1.30); GFR ESTIMATED > 60; GLUCOSE 218 MG/DL (70-105); MAGNESIUM 1.4 MG/DL (1.8-2.4); PHOSPHORUS 3.8 MG/DL (2.3-4.7); POTASSIUM 3.7 MMOL/L (3.6-5.0); SODIUM 136 MMOL/L (135-145); TOTAL PROTEIN 6.4 GM/DL (6.4-8.2)
[2018-04-04] MEDS ORDERED: LACTATED RINGERS 1,000 ML IV ONE ×2 (06:58→07:15)
--- NOTE | 2018-04-04 07:08 | Pre-Op Note & Conscious Sedat ---
Pre-Operative Progress Note H&P Reviewed The H&P was reviewed, patient examined and no changes noted. Date H&P Reviewed: Apr 04, 2018 Time H&P Reviewed: 07:07 Pre-Op Diagnosis: lung mass Conscious Sedation Pre-Proced Time Reviewed: 07:07 ASA Class: 2 Airway Mallampati Classification: ([place] appropriate class) I. II. III, IV Lungs Heart ASA score ASA 1: a normal healthy patient ASA 2: a patient with a mild systemic disease (mid diabetes, controlled hypertension, obesity ASA 3: a patient with a severe systemic disease that limits activity (angina , COPD, prior Myocardial infarction) ASA 4: a patient with an incapacitating disease that is a constant threat to life (CHF, renal failure) ASA 5: a moribund patient not expected to survive 24 hrs. (ruptured aneurysm) ASA 6: a declared brain patient whose organs are being harvested. For emergent operations, add the letter E after the classification Grade 4 Sedation Plan: Analgesia, Amnesia, Plan communicated to team members, Discussed options with patient/fam, Discussed risks with patient/fam Note The patient is an appropriate candidate to undergo the planned procedure, sedation, and anesthesia. The patient immediately re-assessed prior to indication. RAFIQ DE LA FUENTE DO Apr 04, 2018 07:08
[2018-04-04] MEDS ORDERED: proPOfol 200 MG/20 ML (DIPRIVAN) VIAL IV ONE ×2 (07:09→07:29)
[2018-04-04] MEDS ORDERED: SUCCINYLCHOLINE INJ 100 MG/5 ML SYR ONE (07:09)
[2018-04-04] MEDS ORDERED: fentaNYL INJECTION 100 MCG/2 ML AMP ONE (07:14)
[2018-04-04] MEDS ORDERED: MIDAZOLAM 2 MG/2 ML (VERSED) VIAL ONE (07:15)
[2018-04-04] MEDS ORDERED: SEVOFLURANE (ULTANE) 15 ML INHAL SOLN ONE (07:16)
[2018-04-04] MEDS ORDERED: ONDANSETRON 4 MG/2 ML (SDV) Z0FRAN ONE (07:30)
[2018-04-04] MEDS ORDERED: ROCURONIUM 10 MG/ML 5 ML SYRINGE IV ONE (07:35)
[2018-04-04] MEDS ORDERED: GLYCOPYRROLATE 0.2 MG/ML (ROBINUL) 2 ML VIAL ONE ×2 (07:46→07:47)
[2018-04-04] MEDS ORDERED: NEOSTIGMINE 1 MG/ML 5 ML SYRINGE ONE (07:47)
[2018-04-04] MEDS ORDERED: PHENYLEPHRINE 100 MCG/ML 10 ML (ANESTHESIA) SYR ONE (07:58)
--- NOTE | 2018-04-04 08:16 | Pulmonary Procedures ---
Pulmonary Procedures Date of Procedure Date of Service: Apr 04, 2018 Bronch Bronchoscopy with bronchoalveolar lavage, bronchial washes endobronchial forceps bx and, brushes. Preop DX lung mass with MLA Postop DX: A large near complete obstructive mass is noted right bronchus intermedius. Pictures were taken. Complications: none After informed consent obtained and formal time out pt was sedated per anesthesia bronchoscope was advanced through the ET tube. An anatomical tour was undertaken down to the segmental bronchi on left. No endobronchial lesions noted on left side. A large near complete obstructive mass is noted right bronchus intermedius. Pictures were taken. bronchoalveolar lavage, bronchial washes endobronchial forceps bx and, brushes were obtained from mass. Pt tolerated procedure well. No complications noted. RAFIQ DE LA FUENTE DO Apr 04, 2018 08:16
[2018-04-04] MEDS: inSUlin ASPART (NovoLOG) 1 UNIT/0.01 ML (CHARGE PER UNIT) SC SCH ×2 (08:22→11:44)
[2018-04-04] MEDS: KCL 10 MEQ TAB (MICRO K) PO SCH ×2 (08:22→11:42)
--- NOTE | 2018-04-04 08:43 | Diagnostic Imaging Report ---
INDICATION: Post bronchoscopy. Frontal chest obtained at 8:22 a.m. and compared with 04/02/2018 FINDINGS: Persistent atelectatic change in the right base again noted with minimal right pleural fluid. There is no pneumothorax following bronchoscopy. There is no new infiltrate in the left side. Heart is normal in size IMPRESSION: Unchanged right basilar atelectasis and/or consolidation, with small right pleural effusion. No pneumothorax following bronchoscopy. Dictated by: Dictated on workstation # [id number]
[2018-04-04 09:00] VITALS: BP 135/77
[2018-04-04] MEDS: CEFEPIME INJECTION 2,000 MG in NS (IVPB) 50 ML IV SCH (09:21)
[2018-04-04] MEDS: AZITHROMYCIN 250 MG TAB (ZITHROMAX) PO SCH (09:21)
[2018-04-04] MEDS: BENZONATATE 100 MG (TESSALON) CAPSULE PO SCH ×2 (09:21→13:47)
[2018-04-04] MEDS: guaiFENesin (MUCINEX) 600 MG TAB PO SCH (09:21)
[2018-04-04] MEDS: fentaNYL INJECTION 100 MCG/2 ML AMP IVP PRN (09:24)
[2018-04-04] MEDS ORDERED: PEN1DIS.93 MC (11:35)
[2018-04-04] MEDS ORDERED: INSU100I29 SQ (11:35)
[2018-04-04] MEDS ORDERED: INSU100I14 SQ (11:35)
[2018-04-04] MEDS ORDERED: AMOX-358 PO (11:35)
--- NOTE | 2018-04-04 11:41 | Discharge Summary-Hospitalist ---
Diagnosis/Chief Complaint Date of Admission Apr 02, 2018 at 13:37 Date of Discharge Discharge Date: Apr 04, 2018 Admission Diagnosis Assessment: Right lower lobe effusion with collapse of lung tissue due to possible mass Suspicion for bronchiectasis Diabetes mellitus out of control due to noncompliance with insulin Plan: DC Rocephin and start cefepime Bronchoscopy tomorrow Antitussives Hep-locked IV fluid Ambulate Discharge Diagnosis (1) RLL pneumonia Status: Acute (2) Hilar lymphadenopathy Status: Acute (3) Mucus plugging of bronchi Status: Acute (4) Lung mass Status: Acute Assessment & Plan: Appears suspicious for lung cancer we'll obtain PET scan on Saturday and apparently this is his third attempt to get this done in the last 3 months and pathology will be completed by that time for Dr. De Leon appointment (5) Diabetes mellitus Status: Chronic (6) Non-compliance Status: Chronic (7) Does not have health insurance Status: Chronic (8) Former smoker, stopped smoking in distant past Status: Chronic (9) Pleural effusion Status: Acute (10) Bacteremia due to Gram-negative bacteria Status: Acute Discharge Summary Discharge Physical Exam Allergies: Coded Allergies: gabapentin (Verified Allergy, Unknown, 04/02/18) Vitals & I&Os Vital Signs Date Time Temp Pulse Resp B/P (MAP) Pulse Ox O2 Delivery O2 Flow Rate FiO2 04/04/18 10:46 94 Room Air 04/04/18 09:16 3.00 04/04/18 09:00 96.6 102 20 135/77 (96) General Appearance: Alert, Oriented X3, Cooperative Psych/Mental Status: Other (flat affect) Hospital Course Hospital course: Patient had a very standard hospital course for right lower lobe pneumonia but was suspicious for either a lung mass or mucous plug but hilar lymphadenopathy on CT scan was concerning for neoplastic process. He was placed empirically on Rocephin and Zithromax blood cultures returned gram- negative alyson so that was narrowed to cefepime focusing on gram-negative but switch back to Rocephin at time of discharge after sensitivities reviewed. Bronchoscopy was performed by Dr. De Leon showing large endobronchial mass consistent with cancer pathology was pending at time of discharge but presumed lung cancer. He'll be arranged to have PET scan on Saturday but upon further assessment when that was scheduled this is the third attempt of obtaining a PET scan the first [address] Bustillo in [place] from the ER visit but he could not have PET scan done due to low sugar the first time in the second time to high of sugar. He will be placed on Levemir and NovoLog insulin to obtain adequate control for the PET scan to be performed on Saturday. expressed concern about the ability to return on Saturday for that test because she is the sole financial provider at the family became tearful with the situations on hand when I explained that we suspected lung cancer but results were pending but patient continued to eat breakfast while I was giving him all this information and it appeared that he had no intention of treating this aggressively and or in significant denial so we'll do everything we can to support him in providing insulin supplies per [employer] and do everything we can to complete the PET scan and Dr. De Leon follow-up for pathology results and will try to help this patient in any way possible but hemoglobin A1c of 13 and noncompliance and presumed lung cancer that is extensive and the lack of involvement he really wanted to play in his decision- making when I presented the fax to him leads to very poor prognosis and in reality he is a hospice candidate 47 years old and likely that we will be the only way we can support this patient in the end. Labs (last 24 hrs) Laboratory Tests 04/03/18 15:34: Glucometer 297H 04/03/18 20:05: Glucometer 337H 04/04/18 05:10: White Blood Count 6.1, Red Blood Count 4.13L, Hemoglobin 12.0L, Hematocrit 36L, Mean Corpuscular Volume 87, Mean Corpuscular Hemoglobin 29, Mean Corpuscular Hemoglobin Concent 33, Red Cell Distribution Width 13.9, Platelet Count 270, Mean Platelet Volume 9.0, Neutrophils (%) (Auto) 52, Lymphocytes (%) (Auto) 34, Monocytes (%) (Auto) 10, Eosinophils (%) (Auto) 3, Basophils (%) (Auto) 1, Neutrophils # (Auto) 3.2, Lymphocytes # (Auto) 2.1, Monocytes # (Auto) 0.6, Eosinophils # (Auto) 0.2, Basophils # (Auto) 0.0, Sodium Level 136, Potassium Level 3.7, Chloride Level 101, Carbon Dioxide Level 26, Anion Gap 9, Blood Urea Nitrogen 9, Creatinine 0.61, Estimat Glomerular Filtration Rate > 60, BUN/ Creatinine Ratio 15, Glucose Level 218H, Calcium Level 8.5, Phosphorus Level 3.8 , Magnesium Level 1.4L, Total Bilirubin 0.2, Aspartate Amino Transf (AST/SGOT) 17, Alanine Aminotransferase (ALT/SGPT) 18, Alkaline Phosphatase 93, Total Protein 6.4, Albumin 2.7L 04/04/18 05:42: Glucometer 201H Microbiology 04/02/18 Blood Culture - Preliminary, Resulted No growth 04/02/18 Gram Stain - Final, Resulted 04/02/18 Sputum Culture - Preliminary, Resulted Usual/normal bella isolated. Patient resulted labs reviewed. Pending Labs Laboratory Tests 04/04/18 05:10: White Blood Count 6.1, Red Blood Count 4.13, Hemoglobin 12.0, Hematocrit 36, Mean Corpuscular Volume 87, Mean Corpuscular Hemoglobin 29, Mean Corpuscular Hemoglobin Concent 33, Red Cell Distribution Width 13.9, Platelet Count 270, Mean Platelet Volume 9.0, Neutrophils (%) (Auto) 52, Lymphocytes (%) (Auto) 34, Monocytes (%) (Auto) 10, Eosinophils (%) (Auto) 3, Basophils (%) (Auto) 1, Neutrophils # (Auto) 3.2, Lymphocytes # (Auto) 2.1, Monocytes # (Auto) 0.6, Eosinophils # (Auto) 0.2, Basophils # (Auto) 0.0, Sodium Level 136, Potassium Level 3.7, Chloride Level 101, Carbon Dioxide Level 26, Anion Gap 9, Blood Urea Nitrogen 9, Creatinine 0.61, Estimat Glomerular Filtration Rate > 60, BUN/ Creatinine Ratio 15, Glucose Level 218, Calcium Level 8.5, Phosphorus Level 3.8 , Magnesium Level 1.4, Total Bilirubin 0.2, Aspartate Amino Transf (AST/SGOT) 17 , Alanine Aminotransferase (ALT/SGPT) 18, Alkaline Phosphatase 93, Total Protein 6.4, Albumin 2.7 04/04/18 05:42: Glucometer 201 Discussion & Recommendations Discharge Planning: <30 minutes discharge planning Discharge Home Medications: Active Scripts Active Augmentin 875-125 Tablet (Amoxicillin/Potassium Clav) 1 Each Tablet 1 Each PO BID Pen Needle ([place], Insulin Disposable) 1 Each Dis.needle Each ACHS as directed Novolog Flexpen (Insulin Aspart) 300 Units/3 Ml Solution 15 Units SQ AC Levemir Flextouch (Insulin Detemir) 100 Unit/1 Ml Insuln.pen 40 Unit SQ HS 90 Days Advair 250-50 Diskus (Fluticasone/Salmeterol) 1 Each Blst.w.dev 1 Each IH BID 90 Days Instructions to patient/family Please see electronic discharge instructions given to patient. 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
[2018-04-04] MEDS ORDERED: LIDOCAINE PF 1% 2 ML AMP ONE (12:57)
[2018-04-04] MEDS ORDERED: LIDOCAINE 4% INJ (XYLOCAINE) 5ML AMP ONE (12:57)
[2018-04-04] MEDS ORDERED: LIDOCAINE JELLY 2% (XYLOCAINE) 30 ML TUBE ONE (12:57)
[2018-04-05] MEDS ORDERED: cefTRIAXone 1 GM/NS 50 ML IVPB IV SCH ×2 (09:00)
== END 2018-04-04 14:15 | disposition home or self-care (01) | DRG 167 ==
LOC: ER 11:12 → 4TH 13:37
PROVIDERS: ADMIT Internal Medicine; ATTEND Internal Medicine
PROC: 0B938ZX Drainage of Right Main Bronchus, Via Natural or Artificial Opening Endoscopic, Diagnostic (ICD-10-PCS; 2018-04-04)
PROC: 0BB38ZX Excision of Right Main Bronchus, Via Natural or Artificial Opening Endoscopic, Diagnostic (ICD-10-PCS; 2018-04-04)
PROC: 0BD38ZX Extraction of Right Main Bronchus, Via Natural or Artificial Opening Endoscopic, Diagnostic (ICD-10-PCS; 2018-04-04)
PROC: 0B9K8ZX Drainage of Right Lung, Via Natural or Artificial Opening Endoscopic, Diagnostic (ICD-10-PCS; principal; 2018-04-04 07:00)
DX: J18.9 Pneumonia, unspecified organism (principal); J98.11 Atelectasis; R04.2 Hemoptysis; E87.1 Hypo-osmolality and hyponatremia; J90 Pleural effusion, not elsewhere classified; E11.65 Type 2 diabetes mellitus with hyperglycemia; R91.8 Other nonspecific abnormal finding of lung field; J98.09 Other diseases of bronchus, not elsewhere classified; A49.9 Bacterial infection, unspecified; T17.900A Unspecified foreign body in respiratory tract, part unspecified causing asphyxiation, initial encounter; R59.0 Localized enlarged lymph nodes; G47.33 Obstructive sleep apnea (adult) (pediatric); R63.4 Abnormal weight loss; R13.10 Dysphagia, unspecified; J45.909 Unspecified asthma, uncomplicated; M19.91 Primary osteoarthritis, unspecified site; M21.372 Foot drop, left foot; F41.9 Anxiety disorder, unspecified; F32.9 Major depressive disorder, single episode, unspecified; E66.01 Morbid (severe) obesity due to excess calories; Z68.38 Body mass index [BMI] 38.0-38.9, adult; Z87.891 Personal history of nicotine dependence; Z91.19 Patient's noncompliance with other medical treatment and regimen
CPT/HCPCS: 36415; 71045; 71046; 71275; 80053; 82962; 83036; 83605; 83735; 83880; 84100; 84484; 85025; 85379; 87040; 87070; 87077; 87101; 87116; 87186; 87205; 88112; 88305; 93005; 94640; 94664; 94760; 96361; 96374; 96375

== ENCOUNTER → 2018-04-08 | Outpatient (CLI) | payer OTHER ==
[~2018-04-08] MED LIST: AMOX-358 PO; FLUT1DIS26 IH; INSU100I14 SQ; INSU100I29 SQ; PEN1DIS.93 MC
--- NOTE | 2018-04-08 14:31 | Diagnostic Imaging Report ---
INDICATION: Mediastinal mass and right lower lobe collapse. TECHNIQUE: Serum blood glucose level at the time of injection is 114 g/dL. Patient was administered 11.2 mCi of F-18 FDG intravenously, administered in the right antecubital location and PET imaging was performed from the top of the skull to the mid thighs. Noncontrast CT was also performed for attenuation correction and anatomic correlation. COMPARISON: No prior PET imaging is available for comparison. Comparison is made with recent CT chest from 04/02/2018. FINDINGS: There is symmetric activity throughout the brain. No abnormal activity within the soft tissues of the neck is identified. The enlarged right paratracheal and subcarinal lymph nodes noted on recent CT do not show FDG avidity. There is generalized increased uptake within the area of consolidation involving the right lower lobe. This does show SUV max of approximately 3.8. There has also been development of some nodularity in the right middle lobe since the CT study from six days earlier. No hilar hypermetabolism is seen. There is physiologic activity throughout the abdomen and pelvis. Low-level activity within bilateral inguinal lymph nodes is noted. IMPRESSION: The previously noted right paratracheal and subcarinal lymphadenopathy does not demonstrate FDG avidity. There is some generalized low-level activity within the consolidation in the right middle lobe. Patient has developed some nodularity in the right middle lobe. Features are most suggestive of an infectious/inflammatory process with likely mediastinal reactive lymphadenopathy. Continued close interval followup after course of therapy is recommended with repeat CT chest to confirm clearing. Note is made of a small right pleural effusion, similar to recent CT. Dictated by: Dictated on workstation # [id number]
== END ==
LOC: RAD 10:07
PROVIDERS: ATTEND Internal Medicine Critical Care Medicine
DX: J18.1 Lobar pneumonia, unspecified organism (principal); J90 Pleural effusion, not elsewhere classified; J98.19 Other pulmonary collapse; J98.59 Other diseases of mediastinum, not elsewhere classified

== ENCOUNTER 2018-04-15 09:30 | Outpatient (CLI) | payer SELFPAY ==
[~2018-04-15] VITALS: Ht 177.8 cm; Wt 121.6 kg
== END 2018-04-15 10:12 | disposition home or self-care (01) ==
LOC: PREOP 09:30
PROVIDERS: ATTEND Internal Medicine Critical Care Medicine
DX: R91.8 Other nonspecific abnormal finding of lung field (principal); R63.4 Abnormal weight loss; R04.2 Hemoptysis

== ENCOUNTER 2018-04-16 07:58 | Day surgery (SDC) | payer OTHER ==
[~2018-04-16] VITALS: Ht 177.8 cm; Wt 121.6 kg
[2018-04-16] MEDS ORDERED: LIDOCAINE 4% INJ (XYLOCAINE) 5ML AMP INJ ONE (07:59)
[2018-04-16] MEDS ORDERED: LACTATED RINGERS 1,000 ML IV ONE (08:06)
[2018-04-16 08:10] VITALS: BP 142/87
[2018-04-16] MEDS ORDERED: LACTATED RINGERS 1,000 ML IV PRN (08:15)
[2018-04-16] MEDS ORDERED: proPOfol 200 MG/20 ML (DIPRIVAN) VIAL IV ONE (08:21)
[2018-04-16] MEDS ORDERED: PROPOFOL INJECTION 0 ML IV ONE (08:21)
[2018-04-16] MEDS ORDERED: LIDOCAINE PF 2% 5 ML (XYLOCAINE) VIAL ONE (08:22)
[2018-04-16] MEDS ORDERED: MIDAZOLAM 2 MG/2 ML (VERSED) VIAL ONE (08:22)
[2018-04-16] MEDS ORDERED: ONDANSETRON 4 MG/2 ML (SDV) Z0FRAN ONE (08:22)
[2018-04-16] MEDS ORDERED: fentaNYL INJECTION 100 MCG/2 ML AMP ONE (08:22)
== END 2018-04-16 08:25 | disposition home or self-care (01) ==
LOC: SDC 07:58 → ENDO 08:25
PROVIDERS: ATTEND Internal Medicine Critical Care Medicine
DX: R04.2 Hemoptysis (principal); R91.8 Other nonspecific abnormal finding of lung field; R63.4 Abnormal weight loss; E11.9 Type 2 diabetes mellitus without complications; F17.220 Nicotine dependence, chewing tobacco, uncomplicated; Z53.9 Procedure and treatment not carried out, unspecified reason; Z79.4 Long term (current) use of insulin
CPT/HCPCS: 82962; 94640

== ENCOUNTER 2018-05-01 10:56 | Observation (INO) | payer OTHER ==
[~2018-05-01] VITALS: Ht 177.8 cm; Wt 115.4 kg
[2018-05-01] MEDS ORDERED: LACTATED RINGERS 1,000 ML IV SCH ×3 (11:13→14:00)
--- NOTE | 2018-05-01 11:25 | Pulmonary History & Physicial ---
History of Present Illness History of Present Illness Date of Consultation 05/01/18 11:20 Time Seen by Provider: 08:43 Date of Admission History of Present Illness PLEASE SEE OFFICE NOTE FOR H&P AND DETAILS. PT IS BEING ADMITTED SECONDARY TO ACUTE WORSENING POST OBSTRUCTIVE PNEUMONIA. HE HAS A KNOWN ENDOBRONCHIAL MASS AND NEEDS THORACIC SURGERY. I HAVE ALREADY DISCUSSED WITH DR. TONE VILLELA AND HE IS ACCEPTING PATIENT. PT WILL BE TRANSFERRED TO VIA EMS. WE ARE AWAITING BED ARRANGEMENTS. PT HAS POST OBSTRUCTIVE PNEUMONIA WITH SOB THAT IS RAPIDLY GETTING WORSE. Allergies and Home Medications Allergies Coded Allergies: gabapentin (Verified Allergy, Unknown, 04/02/18) Home Medications Fluticasone/Salmeterol 1 Each Blst.w.dev, 1 EACH IH BID, (Reported) Insulin Aspart 100 Unit/1 Ml Susp, 15 UNIT SQ AC, (Reported) Insulin Determir 1,000 Units/10 Ml Soln, 45 UNITS SQ HS, (Reported) Patient Home Medication List Home Medication List Reviewed: Yes Past Tdgiixr-Wyakwh-Vhryxn Hx Patient Social History Type Used: Smokeless Tobacco Former Smoker, Quit: Oct 28, 2007 2nd Hand Smoke Exposure: No Recent Hopitalizations: No Seasonal Allergies Seasonal Allergies: No Past Medical History Surgeries: Yes (RIGHT ARM( TITANIUM IRON)) Orthopedic Respiratory: Yes (WHEN CHILD) Asthma, Pneumonia, Chronic Bronchitis, Sleep Apnea Currently Using CPAP: No Currently Using BIPAP: No Cardiac: No Neurological: Yes (LEFT DROP FOOT, SCIATIA,) Reproductive Disorders: No Genitourinary: No Gastrointestinal: No Musculoskeletal: Yes Arthritis, Foot Drop, Fractures Endocrine: Yes Diabetes, Insulin dep HEENT: No Cancer: No Psychosocial: Yes Anxiety, Depression Integumentary: No Blood Disorders: No Family Medical History Cardiovascular disease 19 FATHER FH: cancer 19 MOTHER Diabetes Review of Systems Time Seen by Provider: 08:42 Exam Exam General Appearance: Anxious, Mild Distress Assessment/Plan Assessment/Plan Admission Dx PLEASE SEE OFFICE NOTE FOR H&P AND DETAILS. PT IS BEING ADMITTED SECONDARY TO ACUTE WORSENING POST OBSTRUCTIVE PNEUMONIA. HE HAS A KNOWN ENDOBRONCHIAL MASS AND NEEDS THORACIC SURGERY. I HAVE ALREADY DISCUSSED WITH DR. TONE VILLELA AND HE IS ACCEPTING PATIENT. PT WILL BE TRANSFERRED TO VIA EMS. WE ARE AWAITING BED ARRANGEMENTS. PT HAS POST OBSTRUCTIVE PNEUMONIA WITH SOB THAT IS RAPIDLY GETTING WORSE. Admission Status: Inpatient Order (span 2 midnights) Reason for Inpatient Admission: PLEASE SEE OFFICE NOTE FOR H&P AND DETAILS. PT IS BEING ADMITTED SECONDARY TO ACUTE WORSENING POST OBSTRUCTIVE PNEUMONIA. HE HAS A KNOWN ENDOBRONCHIAL MASS AND NEEDS THORACIC SURGERY. I HAVE ALREADY DISCUSSED WITH DR. TONE VILLELA AND HE IS ACCEPTING PATIENT. PT WILL BE TRANSFERRED TO VIA EMS. WE ARE AWAITING BED ARRANGEMENTS. PT HAS POST OBSTRUCTIVE PNEUMONIA WITH SOB THAT IS RAPIDLY GETTING WORSE. a RAFIQ DE LA FUENTE DO May 01, 2018 11:25
[2018-05-01 11:35] VITALS: BP 137/85
[2018-05-01] MEDS ORDERED: INSU100V16 SQ (12:00)
[2018-05-01] MEDS ORDERED: FLUT1DIS26 IH (12:00)
[2018-05-01] MEDS ORDERED: INSU100V5 SQ (12:00)
[2018-05-01 12:26] LABS: BASOPHILS % (AUTO) 1 % (0-10); EOSINOPHILS # (AUTO) 0.1 10^3/uL (0.0-0.3); EOSINOPHILS % (AUTO) 1 % (0-10); HEMATOCRIT 43 % (40-54); HEMOGLOBIN 14.5 G/DL (13.3-17.7); LYMPHOCYTES # (AUTO) 1.5 X 10^3 (1.0-4.0); LYMPHOCYTES % (AUTO) 17 % (12-44); MEAN CORPUSCULAR HEMOGLOBIN 29 PG (25-34); MEAN CORPUSCULAR HGB CONC 34 G/DL (32-36); MEAN CORPUSCULAR VOLUME 85 FL (80-99); MONOCYTES # (AUTO) 0.8 X 10^3 (0.0-1.0); MONOCYTES % (AUTO) 9 % (0-12); NEUTROPHILS # (AUTO) 6.4 X 10^3 (1.8-7.8); NEUTROPHILS % (AUTO) 72 % (42-75); PLATELET COUNT 296 10^3/uL (130-400); RED BLOOD COUNT 5.01 10^6/uL (4.35-5.85); RED CELL DISTRIBUTION WIDTH 15.1 % (10.0-14.5); WHITE BLOOD COUNT 8.9 10^3/uL (4.3-11.0)
[2018-05-01 13:33] LABS: ALANINE AMINOTRANSFERASE 9 U/L (0-55); ALBUMIN 3.4 GM/DL (3.2-4.5); ALKALINE PHOSPHATASE 121 U/L (40-136); BILIRUBIN,TOTAL 0.5 MG/DL (0.1-1.0); BUN/CREATININE RATIO 16; CALCIUM 9.4 MG/DL (8.5-10.1); CARBON DIOXIDE 25 MMOL/L (21-32); CHLORIDE 97 MMOL/L (98-107); CREATININE SERUM 1.01 MG/DL (0.60-1.30); GFR ESTIMATED > 60; MAGNESIUM 1.6 MG/DL (1.8-2.4); PHOSPHORUS 3.4 MG/DL (2.3-4.7); POTASSIUM 4.1 MMOL/L (3.6-5.0); SODIUM 131 MMOL/L (135-145); TOTAL PROTEIN 7.3 GM/DL (6.4-8.2)
[2018-05-01 13:40] LABS: GLUCOSE 432 MG/DL (70-105)
[2018-05-01] MEDS ORDERED: inSUlin ASPART (NovoLOG) 1 UNIT/0.01 ML (CHARGE PER UNIT) SC SCH (14:30)
[2018-05-01 15:30] VITALS: BP 128/72
[2018-05-01] MEDS ORDERED: LACTATED RINGERS 1,000 ML IV ONE (15:45)
--- NOTE | 2018-06-11 10:28 | Discharge Summary ---
Diagnosis/Chief Complaint Date of Admission May 01, 2018 at 12:00 Date of Discharge May 01, 2018 at 16:50 Discharge Diagnosis ENDOBRONCHIAL MASS S/P BRONCHOSCOPY -= PT TRANSFERRED TO FOR RESECTION OF MASS. Discharge Summary Hospital Course Hospital Course ENDOBRONCHIAL MASSS S/P BRONCHOSCOPY -= PT TRANSFERRED TO FOR RESECTION OF MASS. Procedures None. Discharge Physical Examination Allergies: Coded Allergies: gabapentin (Verified Allergy, Unknown, 04/02/18) Discharge Home Medications Reviewed and agree with Discharge Medication list on patient's Discharge Instruction sheet Instructions to Patient/Family Please see electronic discharge instructions given to patient. Clinical Quality Measures DVT/VTE Risk/Contraindication: Risk Factor Score Per Nursin RFS Level Per Nursing on Admit: 2=Moderate RAFIQ DE LA FUENTE DO Jun 11, 2018 10:27
== END 2018-05-01 16:50 | disposition short-term general hospital (02) ==
LOC: 4TH 11:33 → UNDOADMIN 11:33 → 4TH 12:00 → EDSTATUS 13:21 → UNDODISIN 16:50
PROVIDERS: ADMIT Internal Medicine Critical Care Medicine; ATTEND Internal Medicine Critical Care Medicine
DX: J18.9 Pneumonia, unspecified organism (principal); R91.8 Other nonspecific abnormal finding of lung field; G47.33 Obstructive sleep apnea (adult) (pediatric); J45.909 Unspecified asthma, uncomplicated; M19.91 Primary osteoarthritis, unspecified site; M21.372 Foot drop, left foot; F41.9 Anxiety disorder, unspecified; F32.9 Major depressive disorder, single episode, unspecified; E66.01 Morbid (severe) obesity due to excess calories; Z68.38 Body mass index [BMI] 38.0-38.9, adult; Z87.891 Personal history of nicotine dependence
CPT/HCPCS: 36415; 80053; 82962; 83605; 83735; 84100; 85025; 87040; G0378

== ENCOUNTER 2019-05-24 09:48 | Observation (INO) | payer SELFPAY, OTHER | END 2019-05-25 12:50 | disposition home or self-care (01) | LOC: ER FS 09:48 → 4TH 11:21 ==

== ENCOUNTER → 2019-10-07 | Outpatient (CLI) | payer SELFPAY ==
[~2019-10-07] MED LIST changes: +ACHD5005 PO; +AMOX-355 PO; +GLMP2T PO; +INSU100V16 SQ; +INSU100V5 SQ; +NAPR-1033 PO
== END ==
LOC: WOUNDCARE 08:14
PROVIDERS: ATTEND Surgery
DX: E11.621 Type 2 diabetes mellitus with foot ulcer (principal); E11.42 Type 2 diabetes mellitus with diabetic polyneuropathy; E11.52 Type 2 diabetes mellitus with diabetic peripheral angiopathy with gangrene; I96 Gangrene, not elsewhere classified; L97.522 Non-pressure chronic ulcer of other part of left foot with fat layer exposed; T65.212A Toxic effect of chewing tobacco, intentional self-harm, initial encounter; F17.228 Nicotine dependence, chewing tobacco, with other nicotine-induced disorders
CPT/HCPCS: 11042

== ENCOUNTER → 2019-10-07 | Outpatient (CLI) | payer SELFPAY ==
[2019-10-07 10:54] LABS: BASOPHILS # (AUTO) 0.1 10^3/uL (0.0-0.1); BASOPHILS % (AUTO) 1 % (0-10); EOSINOPHILS # (AUTO) 0.2 10^3/uL (0.0-0.3); EOSINOPHILS % (AUTO) 2 % (0-10); HEMATOCRIT 48 % (40-54); HEMOGLOBIN 16.4 G/DL (13.3-17.7); LYMPHOCYTES # (AUTO) 3.6 X 10^3 (1.0-4.0); LYMPHOCYTES % (AUTO) 28 % (12-44); MEAN CORPUSCULAR HEMOGLOBIN 29 PG (25-34); MEAN CORPUSCULAR HGB CONC 34 G/DL (32-36); MEAN CORPUSCULAR VOLUME 84 FL (80-99); MONOCYTES # (AUTO) 1.1 X 10^3 (0.0-1.0); MONOCYTES % (AUTO) 8 % (0-12); NEUTROPHILS % (AUTO) 62 % (42-75); PLATELET COUNT 355 10^3/uL (130-400); RED CELL DISTRIBUTION WIDTH 13.5 % (10.0-14.5); WHITE BLOOD COUNT 12.9 10^3/uL (4.3-11.0)
[2019-10-07 11:11] LABS: ALANINE AMINOTRANSFERASE 20 U/L (0-55); ALBUMIN 4.4 GM/DL (3.2-4.5); ALKALINE PHOSPHATASE 127 U/L (40-136); BILIRUBIN,TOTAL 0.5 MG/DL (0.1-1.0); BUN/CREATININE RATIO 15; CALCIUM 9.3 MG/DL (8.5-10.1); CARBON DIOXIDE 24 MMOL/L (21-32); CHLORIDE 102 MMOL/L (98-107); CREATININE SERUM 0.97 MG/DL (0.60-1.30); GFR ESTIMATED > 60; GLUCOSE 298 MG/DL (70-105); POTASSIUM 3.9 MMOL/L (3.6-5.0); SODIUM 138 MMOL/L (135-145); TOTAL PROTEIN 7.9 GM/DL (6.4-8.2)
--- NOTE | 2019-10-07 11:19 | Diagnostic Imaging Report ---
EXAMINATION: Left foot radiographs, 3 views. COMPARISON: May 24, 2019. HISTORY: 49-year-old male, ulcer at the level of the plantar aspect of the fourth metatarsal. Evaluation for osteomyelitis. FINDINGS: There are vascular calcifications. There is no identified radiopaque foreign body. There is a very small calcaneal heel spur. There is no identified tibiotalar joint effusion. There is no identified cortical or aggressive bone destruction. There is no identified acute fracture. The joint spaces are well-preserved. IMPRESSION: 1. No radiographic evidence of osteomyelitis. 2. No identified radiopaque foreign body. Dictated by: Dictated on workstation # [id number]
== END ==
LOC: RAD 10:36
PROVIDERS: ATTEND Surgery
DX: E11.621 Type 2 diabetes mellitus with foot ulcer (principal); E11.42 Type 2 diabetes mellitus with diabetic polyneuropathy; L97.522 Non-pressure chronic ulcer of other part of left foot with fat layer exposed; T65.212A Toxic effect of chewing tobacco, intentional self-harm, initial encounter; F17.228 Nicotine dependence, chewing tobacco, with other nicotine-induced disorders
CPT/HCPCS: 36415; 73630; 80053; 83036; 84134; 85025

== ENCOUNTER → 2019-10-16 | Outpatient (CLI) | payer SELFPAY | LOC: WOUNDCARE 11:04 | PROVIDERS: ATTEND Surgery | DX: E11.621 Type 2 diabetes mellitus with foot ulcer (principal); E11.42 Type 2 diabetes mellitus with diabetic polyneuropathy; L97.522 Non-pressure chronic ulcer of other part of left foot with fat layer exposed | CPT/HCPCS: 11042 ==

== ENCOUNTER → 2019-11-10 | Outpatient (CLI) | payer SELFPAY | LOC: WOUNDCARE 12:43 | PROVIDERS: ATTEND Orthopaedic Surgery Hand Surgery | DX: E11.621 Type 2 diabetes mellitus with foot ulcer (principal); E11.52 Type 2 diabetes mellitus with diabetic peripheral angiopathy with gangrene; E11.42 Type 2 diabetes mellitus with diabetic polyneuropathy; L97.522 Non-pressure chronic ulcer of other part of left foot with fat layer exposed; I96 Gangrene, not elsewhere classified | CPT/HCPCS: 11042; 87070; 87077; 87205 ==

== ENCOUNTER → 2019-11-17 | Outpatient (CLI) | payer SELFPAY | LOC: WOUNDCARE 12:48 | PROVIDERS: ATTEND Orthopaedic Surgery Hand Surgery | DX: E11.621 Type 2 diabetes mellitus with foot ulcer (principal); E11.42 Type 2 diabetes mellitus with diabetic polyneuropathy; L97.522 Non-pressure chronic ulcer of other part of left foot with fat layer exposed; L03.116 Cellulitis of left lower limb; M79.672 Pain in left foot | CPT/HCPCS: 11042 ==

== ENCOUNTER → 2019-11-26 | Outpatient (CLI) | payer SELFPAY | LOC: WOUNDCARE 12:49 | PROVIDERS: ATTEND Orthopaedic Surgery Hand Surgery | DX: E11.621 Type 2 diabetes mellitus with foot ulcer (principal); E11.42 Type 2 diabetes mellitus with diabetic polyneuropathy; L97.521 Non-pressure chronic ulcer of other part of left foot limited to breakdown of skin; L03.116 Cellulitis of left lower limb; M79.672 Pain in left foot | CPT/HCPCS: 99212 ==

== ENCOUNTER 2019-12-20 09:13 | Emergency (ER) | payer SELFPAY ==
[~2019-12-20] VITALS: Ht 177 cm; Wt 131.0 kg
[2019-12-20] MEDS ORDERED: LACTATED RINGERS 1,000 ML IV ONE (09:30)
[2019-12-20] MEDS ORDERED: RT-ALBUTEROL/IPRATROPIUM 3 ML (DUONEB) VIAL INH ONE (09:30)
[2019-12-20 09:40] LABS: BASOPHILS % (AUTO) 0 % (0-10); EOSINOPHILS % (AUTO) 0 % (0-10); HEMATOCRIT 49 % (40-54); HEMOGLOBIN 16.2 G/DL (13.3-17.7); LYMPHOCYTES # (AUTO) 0.9 X 10^3 (1.0-4.0); LYMPHOCYTES % (AUTO) 9 % (12-44); MEAN CORPUSCULAR HEMOGLOBIN 29 PG (25-34); MEAN CORPUSCULAR HGB CONC 33 G/DL (32-36); MEAN CORPUSCULAR VOLUME 87 FL (80-99); MEAN PLATELET VOLUME 9.2 FL (7.4-10.4); MONOCYTES % (AUTO) 10 % (0-12); NEUTROPHILS # (AUTO) 7.9 X 10^3 (1.8-7.8); NEUTROPHILS % (AUTO) 81 % (42-75); PLATELET COUNT 225 10^3/uL (130-400); RED CELL DISTRIBUTION WIDTH 13.7 % (10.0-14.5); WHITE BLOOD COUNT 9.8 10^3/uL (4.3-11.0)
[2019-12-20 09:49] LABS: BILIRUBIN,URINE NEGATIVE (NEGATIVE); CLARITY,URINE CLEAR; COLOR,URINE YELLOW; GLUCOSE, URINE (UA) 2+ (NEGATIVE); KETONES,URINE 3+ (NEGATIVE); LEUKOCYTE ESTERASE ,URINE NEGATIVE (NEGATIVE); NITRITE,URINE NEGATIVE (NEGATIVE); PROTEIN,URINE 2+ (NEGATIVE)
[2019-12-20 09:50] LABS: PROTHROMBIN TIME PATIENT 13.2 SEC (12.2-14.7)
[2019-12-20 09:59] LABS: BACTERIA,URINE NEGATIVE /HPF; RBC,URINE RARE /HPF; SQUAMOUS EPITHELIAL CELL,UR RARE /HPF
[2019-12-20 10:00] LABS: ALANINE AMINOTRANSFERASE 22 U/L (0-55); ALBUMIN 4.5 GM/DL (3.2-4.5); ALKALINE PHOSPHATASE 89 U/L (40-136); BILIRUBIN,TOTAL 0.9 MG/DL (0.1-1.0); BUN/CREATININE RATIO 10; CALCIUM 9.5 MG/DL (8.5-10.1); CARBON DIOXIDE 26 MMOL/L (21-32); CHLORIDE 97 MMOL/L (98-107); CREATININE SERUM 0.97 MG/DL (0.60-1.30); GFR ESTIMATED > 60; GLUCOSE 269 MG/DL (70-105); POTASSIUM 4.3 MMOL/L (3.6-5.0); SODIUM 134 MMOL/L (135-145); TOTAL PROTEIN 8.1 GM/DL (6.4-8.2)
--- NOTE | 2019-12-20 10:10 | ED Respiratory ---
General Chief Complaint: Respiratory Problems Stated Complaint: SOB Nursing Triage Note: PT CO OF SOB FOR 3 DAYS, STATES HAVING PAIN FROM COUGHING. DENIES FEVER Source: patient, family Exam Limitations: no limitations (RADHA COLON MEDICAL STUDENT) History of Present Illness Date Seen by Provider: Dec 20, 2019 Time Seen by Provider: 09:55 Initial Comments Pt is a 49 yo M who ambulates to the ED complaining of persistent SOB and cough for the past three days. He was having a difficult enough time catching his breath this morning that he decided to come in. Denies fever/chills, nausea, vomiting, or diarrhea. Endorses CP, but only with cough. Also endorses SIGALA, generalized myalgias/arthralgias and malaise. He has a history of asthma but is not currently using an inhaler. He is a former smoker, but currently uses chewing tobacco. Timing/Duration: getting worse, other (started 3 days ago) Severity: moderate Prior Episodes/Possible Cause: no prior episodes, unknown cause Modifying Factors: Worse With Activity, Worse With Coughing Associated Symptoms: chest pain/soreness, cough, headache, muscle aches, shortness of breath (RADHA COLON MEDICAL STUDENT) Initial Comments Also has history of right lower lung pneumonia that required hospitalization for over a month. Reports blood sugars are okay. Fever and chills over the last couple of days. Timing/Duration: getting worse Severity: moderate Prior Episodes/Possible Cause: occasional episodes Associated Symptoms: chest pain/soreness (with cough), cough, muscle aches, shortness of breath, sore throat (CHUYITA ROCHA MD) Allergies and Home Medications Allergies Coded Allergies: gabapentin (Verified Allergy, Unknown, 05/24/19) Home Medications Amoxicillin/Potassium Clav 1 Each Tablet, 1 EACH PO BID Prescribed by: HALIMA TRENT on 05/25/19 1031 Glimepiride 2 Mg Tab, 2 MG PO DAILY@0630 Prescribed by: HALIMA TRENT on 05/25/19 1031 Hydrocodone Bit/Acetaminophen 1 Tab Tab, 1 TAB PO Q4-6HR PRN for PAIN-MODERATE Prescribed by: HALIMA TRENT on 05/25/19 1031 Naproxen Sodium 220 Mg Tablet, 440 MG PO BID PRN for PAIN-MILD, (Reported) Patient Home Medication List Home Medication List Reviewed: Yes (RADHA COLON STUDENT) Home Medication List Reviewed: Yes (CHUYITA ROCHA MD) Review of Systems Review of Systems Constitutional: No chills, No fever; malaise EENTM: No nose congestion, No throat pain Respiratory: cough, short of breath Cardiovascular: chest pain (only with cough); No palpitations, No syncope Gastrointestinal: No abdominal pain, No diarrhea, No nausea, No vomiting Genitourinary: no symptoms reported Musculoskeletal: see HPI Skin: no symptoms reported Psychiatric/Neurological: No Symptoms Reported Hematologic/Lymphatic: No Symptoms Reported Immunological/Allergic: no symptoms reported (RADHA COLON) Respiratory: see HPI Cardiovascular: see HPI Gastrointestinal: no symptoms reported Musculoskeletal: see HPI, muscle pain; No muscle weakness Skin: no symptoms reported (CHUYITA ROCHA MD) All Other Systems Reviewed Negative Unless Noted: Yes (CHUYITA ROCHA MD) Past Turxayp-Nrclyz-Rwgihy Hx Past Med/Social Hx: Reviewed Nursing Past Med/Soc Hx (RADHA COLON) Past Med/Social Hx: Reviewed Nursing Past Med/Soc Hx (CHUYITA ROCHA MD) Patient Social History Alcohol Use: Denies Use Recreational Drug Use: Yes (POT) Drug of Choice: marijuana Smoking Status: Former Smoker Type Used: Smokeless Tobacco Former Smoker, Quit: Oct 28, 2007 2nd Hand Smoke Exposure: No (quit smoking cigarettes in 2009, still chews tobacco) Recent Foreign Travel: No Contact w/Someone Who Travel: No Recent Infectious Disease Expo: No Recent Hopitalizations: No Physical Abuse: No Sexual Abuse: No (RADHA COLON) Immunizations Up To Date Tetanus Booster (TDap): Less than 5yrs (RADHA COLON MEDICAL NESHA) Seasonal Allergies Seasonal Allergies: No (RADHA COLON) Past Medical History Surgeries: Yes (RIGHT ARM( TITANIUM IRON)) Orthopedic Respiratory: Yes (LUNG ISSUES COUPLE YEARS AGO) Asthma, Pneumonia, Chronic Bronchitis, Sleep Apnea Currently Using CPAP: No Currently Using BIPAP: No Cardiac: Yes Hypertension Neurological: Yes (LEFT DROP FOOT, SCIATIA,) Reproductive Disorders: No Genitourinary: No Gastrointestinal: No Musculoskeletal: Yes Arthritis, Foot Drop, Fractures Endocrine: Yes Diabetes, Insulin dep HEENT: No Cancer: No Psychosocial: Yes Anxiety, Depression Integumentary: No Blood Disorders: No (RADHA COLON MEDICAL STUDENT) Family Medical History Reviewed Nursing Family Hx (CHUYITA ROCHA MD) Cardiovascular disease 19 FATHER FH: cancer 19 MOTHER Diabetes (RADHA COLON MEDICAL STUDENT) Physical Exam Vital Signs - First Documented 12/20/19 12/20/19 09:20 10:01 Temp 37.4 Pulse 122 Resp 32 B/P (MAP) 147/94 (111) Pulse Ox 94 O2 Delivery Room Air (CHUYITA ROCHA MD) Capillary Refill : Less Than 3 Seconds (RADHA COLON MEDICAL STUDENT) Height: 5'10.00" Weight: 303lbs. 1.0oz. [id number]; 41.00 BMI Method:Stated General Appearance: WD/WN, mild distress HEENT: PERRL/EOMI, TMs normal, pharynx normal Neck: non-tender, full range of motion, supple, normal inspection Respiratory: chest non-tender, no respiratory distress (breathing slow and steady while receiving breathing treatment during my evaluation), no accessory muscle use, rhonchi (Scattered, diffuse rhonchi on both inspiration/expiration) Cardiovascular: normal peripheral pulses, no edema, no murmur, tachycardia Gastrointestinal: normal bowel sounds, non tender, soft Extremities: normal range of motion, non-tender, normal inspection, no pedal edema Neurologic/Psychiatric: alert, oriented x 3 Skin: normal color, warm/dry Lymphatic: no adenopathy (RADHA COLON MEDICAL STUDENT) General Appearance: WD/WN, mild distress HEENT: PERRL/EOMI, TMs normal, pharynx normal Neck: full range of motion, supple Respiratory: crackles (. I basilar), rhonchi (Scattered, diffuse rhonchi on both inspiration/expiration), other (coarse cough) Cardiovascular: no murmur, tachycardia Gastrointestinal: non tender, soft Extremities: non-tender, normal inspection Neurologic/Psychiatric: alert, oriented x 3 Skin: normal color, warm/dry (CHUYITA ROCHA MD) Focused Exam Lactate Level 12/20/19 09:26: Lactic Acid Level 1.48 (CHUYITA ROCHA MD) Lactic Acid Level Laboratory Tests Test 12/20/19 09:26 Lactic Acid Level 1.48 MMOL/L (0.50-2.00) (CHUYITA ROCHA MD) Progress/Results/Core Measures Suspected Sepsis Recent Fever Within 48 Hours: No Infection Criteria Present: None New/Unexplained Altered Menta: No Sepsis Screen: No Definite Risk SIRS Temperature: Pulse: 122 Respiratory Rate: 32 Laboratory Tests 12/20/19 09:26: White Blood Count 9.8 Blood Pressure 147 /94 Mean: 111 12/20/19 09:26: Lactic Acid Level 1.48 Laboratory Tests 12/20/19 09:26: Creatinine 0.97, INR Comment 1.0, Platelet Count 225, Total Bilirubin 0.9 (RADHA COLON MEDICAL STUDENT) Results/Orders Lab Results Laboratory Tests Test 12/20/19 09:26 12/20/19 09:39 Range/Units White Blood Count 9.8 4.3-11.0 10^3/uL Red Blood Count 5.62 4.35-5.85 10^6/uL Hemoglobin 16.2 13.3-17.7 G/DL Hematocrit 49 40-54 % Mean Corpuscular Volume 87 80-99 FL Mean Corpuscular Hemoglobin 29 25-34 PG Mean Corpuscular Hemoglobin Concent 33 32-36 G/DL Red Cell Distribution Width 13.7 10.0-14.5 % Platelet Count 225 130-400 10^3/uL Mean Platelet Volume 9.2 7.4-10.4 FL Neutrophils (%) (Auto) 81 H 42-75 % Lymphocytes (%) (Auto) 9 L 12-44 % Monocytes (%) (Auto) 10 0-12 % Eosinophils (%) (Auto) 0 0-10 % Basophils (%) (Auto) 0 0-10 % Neutrophils # (Auto) 7.9 H 1.8-7.8 X 10^3 Lymphocytes # (Auto) 0.9 L 1.0-4.0 X 10^3 Monocytes # (Auto) 1.0 0.0-1.0 X 10^3 Eosinophils # (Auto) 0.0 0.0-0.3 10^3/uL Basophils # (Auto) 0.0 0.0-0.1 10^3/uL Prothrombin Time 13.2 12.2-14.7 SEC INR Comment 1.0 0.8-1.4 Activated Partial Thromboplast Time 32 24-35 SEC Sodium Level 134 L 135-145 MMOL/L Potassium Level 4.3 3.6-5.0 MMOL/L Chloride Level 97 L 98-107 MMOL/L Carbon Dioxide Level 26 21-32 MMOL/L Anion Gap 11 5-14 MMOL/L Blood Urea Nitrogen 10 7-18 MG/DL Creatinine 0.97 0.60-1.30 MG/DL Estimat Glomerular Filtration Rate > 60 BUN/Creatinine Ratio 10 Glucose Level 269 H 70-105 MG/DL Lactic Acid Level 1.48 0.50-2.00 MMOL/L Calcium Level 9.5 8.5-10.1 MG/DL Corrected Calcium 9.1 8.5-10.1 MG/DL Total Bilirubin 0.9 0.1-1.0 MG/DL Aspartate Amino Transf (AST/SGOT) 17 5-34 U/L Alanine Aminotransferase (ALT/SGPT) 22 0-55 U/L Alkaline Phosphatase 89 40-136 U/L Total Protein 8.1 6.4-8.2 GM/DL Albumin 4.5 3.2-4.5 GM/DL Urine Color YELLOW Urine Clarity CLEAR Urine pH 6.0 5-9 Urine Specific [place] >=1.030 1.016-1.022 Urine Protein 2+ H NEGATIVE Urine Glucose (UA) 2+ H NEGATIVE Urine Ketones 3+ H NEGATIVE Urine Nitrite NEGATIVE NEGATIVE Urine Bilirubin NEGATIVE NEGATIVE Urine Urobilinogen 4.0 < = 1.0 MG/DL Urine Leukocyte Esterase NEGATIVE NEGATIVE Urine RBC (Auto) TRACE-I NEGATIVE Urine RBC RARE /HPF Urine WBC NONE /HPF Urine Squamous Epithelial Cells RARE /HPF Urine Crystals NONE /LPF Urine Bacteria NEGATIVE /HPF Urine Casts NONE /LPF Urine Mucus NEGATIVE /LPF Urine Culture Indicated CULTURE PENDING (CHUYITA ROCHA MD) Micro Results Microbiology 12/20/19 Influenza Types A,B Antigen (ELYSE) - Final, Complete (CHUYITA ROCHA MD) My Orders Orders - CHUYITA ROCHA MD Cbc With Automated Diff (12/20/19 09:30) Comprehensive Metabolic Panel (12/20/19 09:30) Blood Culture (12/20/19 09:30) Sputum Culture (12/20/19 09:30) Urinalysis (12/20/19 09:30) Urine Culture (12/20/19 09:30) Protime With Inr (12/20/19 09:30) Partial Thromboplastin Time (12/20/19 09:30) Chest 1 View, Ap/Pa Only (12/20/19 09:30) Ed Iv/Invasive Line Start (12/20/19 09:30) Vital Signs Adult Sepsis Patie Q15M (12/20/19 09:30) O2 (12/20/19 09:30) Remove Rings In Anticipation O (12/20/19 09:30) Lactic Acid Analyzer (12/20/19 09:30) Influenza A And B Antigens (12/20/19 09:30) Albuterol/Ipra Inhalation Soln (Duoneb I (12/20/19 09:30) Lactated Ringers (Lr 1000 Ml Iv Solution (12/20/19 09:30) Svn Small Volume Nebulizer (12/20/19 09:30) Ekg Tracing (12/20/19 09:55) Oseltamivir 75 Mg Capsule (Tamiflu 75 (12/20/19 12:15) Cefdinir Capsule (Omnicef Capsule) (12/20/19 12:15) Azithromycin Tablet (Zithromax Tablet) (12/20/19 12:15) (CHUYITA ROCHA MD) Medications Given in ED Current Medications Medications Dose Ordered Sig/Nena Route Start Time Stop Time Status Last Admin Dose Admin Albuterol/ Ipratropium 3 ml ONCE ONCE INH 12/20/19 09:30 12/20/19 09:32 DC 12/20/19 10:00 3 ML Lactated Ringer's 1,000 ml @ 0 mls/hr Q0M ONCE IV 12/20/19 09:30 12/20/19 09:32 DC 12/20/19 09:52 1,000 MLS/HR (CHUYITA ROCHA MD) Vital Signs/I&O 12/20/19 12/20/19 09:20 10:01 Temp 37.4 Pulse 122 Resp 32 B/P (MAP) 147/94 (111) Pulse Ox 94 97 O2 Delivery Room Air (CHUYITA ROCHA MD) Vital Signs/I&O Capillary Refill : Less Than 3 Seconds (RADHA COLON MEDICAL STUDENT) Blood Pressure Mean: 111 Progress Note : Progress Note I have seen and evaluated the patient and agree with above except as indicated. I have directed the plan of care. Patient is here with fever, chills, body aches, cough and shortness of breath. Evaluation as above. Plan sepsis workup given history plus influenza evaluation. We will get EKG for tachycardia. Monitor patient. 1220: I have discussed the case with Dr. Carias at the clinic. Patient is in have difficulty getting his medications. She will assist with the medications through the clinic pharmacy. I will send those over to the clinic. Omnicef 3 mg by mouth, azithromycin 500 mg by mouth and Tamiflu 75 mg by mouth initiated. She did assist with making appointment as well. He will see Rach Gomez tomorrow at 0940 at the clinic. Discharged home with return precautions. Patient verbalize understanding instructions and agreement with plan. (CHUYITA ROCHA MD) ECG Initial ECG Impression Date: Dec 20, 2019 Initial ECG Impression Time: 09:34 Initial ECG Rate: 114 Initial ECG Rhythm: S.Tach Initial ECG Comparisson: Unchanged Comment Sinus tachycardia with right bundle-branch block. Left axis deviation. Similar to 04/23/19. No evidence of ST elevation [place]. Interpreted by me. (CHUYITA ROCHA MD) Diagnostic Imaging Comments [facility]. [place], [place] NAME: VANESSA PÉREZ [facility] REC#: [id number] PT STATUS: REG ER : 1970 PHYSICIAN: CHUYITA ROCHA MD ADMIT DATE: 12/20/19/ER Signed Date of Exam:12/20/19 CHEST 1 VIEW, AP/PA ONLY EXAMINATION: Portable erect AP chest at 9:53 AM INDICATION: Chest pain The heart size is within normal limits and stable when compared to 04/24/2018. The previous study did show a prominent area of consolidation involving the right lung base. On this exam, there are coarse interstitial infiltrates in the right infrahilar region. These findings could be chronic in nature but the possibility that there is an element of acute pneumonia/atelectasis cannot be entirely excluded. Clinical follow-up is recommended. The lungs are otherwise clear. There is no sign of a pleural effusion. The mediastinum is not widened. The osseous structures are intact. IMPRESSION: 1. The coarse interstitial infiltrates in the right infrahilar region are worrisome for acute pneumonia/atelectasis. Clinical follow-up is recommended. 2. There is no acute abnormality noted otherwise. Dictated by: Dictated on workstation # [id number] Dict: 12/20/19 0959 Trans: 12/20/19 1136 TINA [id number] Interpreted by: TERI ALVAREZ MD Electronically signed by: TERI ALVAREZ MD 12/20/19 1136 (RADHA COLON MEDICAL STUDENT) Diagonstic Imaging: Xray Plain Films/CT/US/NM/MRI: chest (CHUYITA ROCHA MD) Departure Impression Primary Impression: Influenza A Additional Impression: Right lower lobe pneumonia Qualified Codes: J18.1 - Lobar pneumonia, unspecified organism Disposition: 01 HOME, SELF-CARE Condition: Stable Departure-Patient Inst. Decision time for Depature: 12:30 (CHUYITA ROCHA MD) Referrals: [facility] [place] (PCP) Primary Care Physician RACH CHAVARRIA (Family) Primary Care Physician Patient Instructions: Flu, Adult (DC), Pneumonia, Adult (DC) Add. Discharge Instructions: All discharge instructions reviewed with patient and/or family. Voiced understanding. Take medications as directed. You'll start the cefdinir tonight and the azithromycin tomorrow. Your next dose of oseltamvir will be tonight. Complete medications as directed. You will follow up with Rach Chavarria tomorrow at 0940 at the clinic. You need to go directly to the clinic pharmacy today after departure to diamond picker your medications which were approved by Dr. Carias. If there is any question, please let them know that this was discussed with Dr. Carias and to call her for problems. Drink plenty of fluids and get plenty of rest. Use inhaler as directed. Return for worse pain, fever, vomiting, weakness, breathing problems or other concerns as needed. You may take Tylenol/acetaminophen 1000 mg every 8 hours as needed for fever or pain. You may take ibuprofen 600 mg every 8 hours as needed for fever or pain. Again, drink plenty of fluids. Scripts Albuterol Sulfate (Proventil Hfa) 6.7 Gm Hfa.aer.ad 2 PUFF INH Q6H PRN for WHEEZING, #1 INHALER 0 Refills Prov: CHUYITA ROCHA MD 12/20/19 Oseltamivir Phosphate (Oseltamivir Phosphate) 75 Mg Capsule 75 MG PO BID for 5 Days, #9 CAP 0 Refills Prov: CHUYITA ROCHA MD 12/20/19 Cefdinir (Cefdinir) 300 Mg Capsule 300 MG PO BID, #19 CAP 0 Refills Prov: CHUYITA ROCHA MD 12/20/19 Azithromycin (Azithromycin) 250 Mg Tablet 250 MG PO DAILY, #4 TAB 0 Refills Prov: CHUYITA ROCHA MD 12/20/19 Copy Copies To 1: FERNANDA CARIASRADHA MEDICAL STUDENT Dec 20, 2019 10:09 CHUYITA ROCHA MD Dec 20, 2019 12:23
[2019-12-20] MEDS ORDERED: AZITHROMYCIN 250 MG TAB (ZITHROMAX) PO STA (12:15)
[2019-12-20] MEDS ORDERED: CEFDINIR 300 MG (OMNICEF) CAP PO ONE (12:15)
[2019-12-20] MEDS ORDERED: OSELTAMIVIR 75 MG (TAMIFLU) CAPSULE PO ONE (12:15)
[2019-12-20] MEDS ORDERED: AZIT250T12 PO (12:29)
[2019-12-20] MEDS ORDERED: OSEL75CA15 PO (12:29)
[2019-12-20] MEDS ORDERED: CEFD300C3 PO (12:29)
[2019-12-20] MEDS ORDERED: RT-ALBUINH INH (12:32)
[2019-12-20 12:33] VITALS: BP 128/79
== END 2019-12-20 12:38 | disposition home or self-care (01) ==
LOC: EDUNIT# 09:13 → ER 09:14
DX: J10.00 Influenza due to other identified influenza virus with unspecified type of pneumonia (principal); E11.9 Type 2 diabetes mellitus without complications; F17.220 Nicotine dependence, chewing tobacco, uncomplicated; Z88.8 Allergy status to other drugs, medicaments and biological substances; Z82.49 Family history of ischemic heart disease and other diseases of the circulatory system
CPT/HCPCS: 36415; 71045; 80053; 81000; 83605; 85025; 85610; 85730; 87040; 87070; 87088; 87205; 87804; 93005; 94640

== ENCOUNTER 2021-03-03 14:09 | Emergency (ER) | payer SELFPAY ==
[~2021-03-03] VITALS: Ht 162.5 cm; Wt 134.5 kg
[~2021-03-03 14:09] MED LIST changes: +AZIT250T12 PO; +CEFD300C3 PO; +OSEL75CA15 PO; +RT-ALBUINH INH
[2021-03-03] MEDS ORDERED: LACTATED RINGERS 1,000 ML IV SCH (14:30)
--- NOTE | 2021-03-03 14:33 | ED Integumentary General ---
General Chief Complaint: Skin/Wound Problems Stated Complaint: DM FOOT ULCER Nursing Triage Note: AMB TO ED WITH CONCERNS OF AREA ON BOTTEM OF L FOOT. IS DIABETIC AND SAW WOUND CARE 1 YEAR AGO FOR. Source: patient Exam Limitations: no limitations History of Present Illness Date Seen by Provider: March 03, 2021 Time Seen by Provider: 14:15 Initial Comments To ER by private vehicle with reports of a callus surrounding an ulcer to the plantar surface of the forefoot on the left. He is a diabetic and has been without his medications for about a week. No fevers or chills. This is painful despite his neuropathy. Timing/Duration: constant Severity: moderate Location: extremities Associated Symptoms: denies symptoms Allergies and Home Medications Allergies Coded Allergies: gabapentin (Verified Allergy, Unknown, 05/24/19) Home Medications Albuterol Sulfate 6.7 Gm Hfa.aer.ad, 2 PUFF INH Q6H PRN for WHEEZING Prescribed by: CHUYITA ROCHA on 12/20/19 1232 Amoxicillin/Potassium Clav 1 Each Tablet, 1 EACH PO BID Prescribed by: HALIMA TRENT on 05/25/19 1031 Azithromycin 250 Mg Tablet, 250 MG PO DAILY Prescribed by: CHUYITA ROCHA on 12/20/19 1229 Cefdinir 300 Mg Capsule, 300 MG PO BID Prescribed by: CHUYITA ROCHA on 12/20/19 1229 Glimepiride 2 Mg Tab, 2 MG PO DAILY@0630 Prescribed by: HALIMA TRENT on 05/25/19 1031 Hydrocodone Bit/Acetaminophen 1 Tab Tab, 1 TAB PO Q4-6HR PRN for PAIN-MODERATE Prescribed by: HALIMA TRENT on 05/25/19 1031 Naproxen Sodium 220 Mg Tablet, 440 MG PO BID PRN for PAIN-MILD, (Reported) Oseltamivir Phosphate 75 Mg Capsule, 75 MG PO BID Prescribed by: CHUYITA ROCHA on 12/20/19 1229 Patient Home Medication List Home Medication List Reviewed: Yes Review of Systems Review of Systems Constitutional: see HPI EENTM: see HPI Respiratory: no symptoms reported Cardiovascular: no symptoms reported Genitourinary: no symptoms reported Musculoskeletal: see HPI Skin: no symptoms reported Psychiatric/Neurological: No Symptoms Reported Endocrine: No Symptoms Reported Hematologic/Lymphatic: No Symptoms Reported Past Hdlaxqj-Ucvluw-Kzduqk Hx Patient Social History Drug of Choice: marijuana Type Used: Smokeless Tobacco Former Smoker, Quit: Oct 28, 2007 2nd Hand Smoke Exposure: No (quit smoking cigarettes in 2009, still chews tobacco) Recent Infectious Disease Expo: No Recent Hopitalizations: No Immunizations Up To Date Tetanus Booster (TDap): Less than 5yrs Seasonal Allergies Seasonal Allergies: No Past Medical History Surgeries: Yes (RIGHT ARM( TITANIUM IRON)) Orthopedic Respiratory: Yes (LUNG ISSUES COUPLE YEARS AGO) Asthma, Pneumonia, Chronic Bronchitis, Sleep Apnea Currently Using CPAP: No Currently Using BIPAP: No Cardiac: Yes Hypertension Neurological: Yes (LEFT DROP FOOT, SCIATIA,) Reproductive Disorders: No Genitourinary: No Gastrointestinal: No Musculoskeletal: Yes Arthritis, Foot Drop, Fractures Endocrine: Yes Diabetes, Insulin dep HEENT: No Cancer: No Psychosocial: Yes Anxiety, Depression Integumentary: No Blood Disorders: No Family Medical History Cardiovascular disease 19 FATHER FH: cancer 19 MOTHER Diabetes Physical Exam Vital Signs Vital Signs - First Documented 03/03/21 14:19 Temp 36.2 Pulse 113 Resp 18 B/P (MAP) 137/101 (113) Pulse Ox 96 Capillary Refill : Less Than 3 Seconds General Appearance: WD/WN, no apparent distress HEENT: PERRL/EOMI, normal ENT inspection Neck: non-tender, full range of motion Respiratory: no respiratory distress, no accessory muscle use Extremities: normal range of motion, other (To the plantar surface of the left foot there is a callus over the distal aspect of the first metatarsal. The more concerning 1 is a callus surrounding an ulcerated area to the distal aspect of the fourth metatarsal. This was cleansed with Betadine which was allowed to dry and then the excess callused area was trimmed with a 10 blade scalpel to better visualize the wound. Culture was collected.) Neurologic/Psychiatric: alert, normal mood/affect, oriented x 3 Skin: normal color, warm/dry Progress/Results/Core Measures Results/Orders Lab Results Laboratory Tests Test 03/03/21 14:32 Range/Units White Blood Count 9.0 4.3-11.0 10^3/uL Red Blood Count 5.25 4.30-5.52 10^6/uL Hemoglobin 15.4 13.3-17.7 g/dL Hematocrit 46 40-54 % Mean Corpuscular Volume 88 80-99 fL Mean Corpuscular Hemoglobin 29 25-34 pg Mean Corpuscular Hemoglobin Concent 33 32-36 g/dL Red Cell Distribution Width 12.5 10.0-14.5 % Platelet Count 262 130-400 10^3/uL Mean Platelet Volume 9.3 9.0-12.2 fL Immature Granulocyte % (Auto) 0 % Neutrophils (%) (Auto) 76 H 42-75 % Lymphocytes (%) (Auto) 16 12-44 % Monocytes (%) (Auto) 7 0-12 % Eosinophils (%) (Auto) 0 0-10 % Basophils (%) (Auto) 0 0-10 % Neutrophils # (Auto) 6.8 1.8-7.8 X 10^3 Lymphocytes # (Auto) 1.4 1.0-4.0 X 10^3 Monocytes # (Auto) 0.6 0.0-1.0 X 10^3 Eosinophils # (Auto) 0.0 0.0-0.3 10^3/uL Basophils # (Auto) 0.0 0.0-0.1 10^3/uL Immature Granulocyte # (Auto) 0.0 0.0-0.1 10^3/uL Erythrocyte Sedimentation Rate 13 0-15 MM/HR Sodium Level 135 135-145 MMOL/L Potassium Level 4.2 3.6-5.0 MMOL/L Chloride Level 102 98-107 MMOL/L Carbon Dioxide Level 23 21-32 MMOL/L Anion Gap 10 5-14 MMOL/L Blood Urea Nitrogen 10 7-18 MG/DL Creatinine 0.81 0.60-1.30 MG/DL Estimat Glomerular Filtration Rate > 60 BUN/Creatinine Ratio 12 Glucose Level 264 H 70-105 MG/DL Calcium Level 8.9 8.5-10.1 MG/DL Corrected Calcium 9.0 8.5-10.1 MG/DL Total Bilirubin 0.5 0.1-1.0 MG/DL Aspartate Amino Transf (AST/SGOT) 26 5-34 U/L Alanine Aminotransferase (ALT/SGPT) 35 0-55 U/L Alkaline Phosphatase 83 40-136 U/L Total Protein 7.1 6.4-8.2 GM/DL Albumin 3.9 3.2-4.5 GM/DL My Orders Orders - APPLE DELA CRUZ BRASS FINISHER Cbc With Automated Diff (03/03/21 14:22) Erythrocyte Sedimentation Rate (03/03/21 14:22) Comprehensive Metabolic Panel (03/03/21 14:22) Foot, Left, 3 Views (03/03/21 14:22) Wound Culture (03/03/21 14:22) Lactated Ringers (Lr 1000 Ml Iv Solution (03/03/21 14:30) Vital Signs/I&O 03/03/21 14:19 Temp 36.2 Pulse 113 Resp 18 B/P (MAP) 137/101 (113) Pulse Ox 96 Blood Pressure Mean: 113 Departure Communication (Admissions) NAME: VANESSA PÉREZ [facility] REC#: [id number] PT STATUS: REG ER : 1970 PHYSICIAN: APPLE DELA CRUZ APRN ADMIT DATE: 03/03/21/ER Draft Date of Exam:03/03/21 FOOT, LEFT, 3 VIEWS INDICATION: Left foot pain. FINDINGS: Three views of the left foot show no fracture, dislocation, or radiopaque foreign object. IMPRESSION: Unremarkable left foot. Dictated on workstation # [id number] Dict: 03/03/21 1504 Trans: 03/03/21 1506 [id number] [id number] Interpreted by: CHUYITA LUNDBERG MD Electronically signed by: Impression Primary Impression: Diabetic ulcer of foot associated with diabetes mellitus due to underlying condition, with fat layer exposed Disposition: 01 HOME, SELF-CARE Condition: Stable Departure-Patient Inst. Decision time for Depature: 15:21 [address]errals: [facility] [place] Primary Care Physician CASPER CHAVARRIA (Family) Primary Care Physician DESTINY BLANCHARD MD Patient Instructions: Diabetic Foot Ulcer (DC) Add. Discharge Instructions: 1. Call Dr. Blanchard for follow-up on Saturday. Take the antibiotics as directed. Return to ER for any worsening. All discharge instructions reviewed with patient and/or family. Voiced understanding. Scripts Clindamycin HCl (Clindamycin HCl) 300 Mg Capsule 300 MG PO TID, #21 CAP Prov: APPLE DELA CRUZ APRN 03/03/21 APPLE DELA CRUZ APRN March 03, 2021 14:33
[2021-03-03 14:42] LABS: BASOPHILS % (AUTO) 0 % (0-10); EOSINOPHILS % (AUTO) 0 % (0-10); HEMATOCRIT 46 % (40-54); HEMOGLOBIN 15.4 g/dL (13.3-17.7); LYMPHOCYTES # (AUTO) 1.4 X 10^3 (1.0-4.0); LYMPHOCYTES % (AUTO) 16 % (12-44); MEAN CORPUSCULAR HEMOGLOBIN 29 pg (25-34); MEAN CORPUSCULAR HGB CONC 33 g/dL (32-36); MEAN CORPUSCULAR VOLUME 88 fL (80-99); MEAN PLATELET VOLUME 9.3 fL (9.0-12.2); MONOCYTES # (AUTO) 0.6 X 10^3 (0.0-1.0); MONOCYTES % (AUTO) 7 % (0-12); NEUTROPHILS # (AUTO) 6.8 X 10^3 (1.8-7.8); NEUTROPHILS % (AUTO) 76 % (42-75); PLATELET COUNT 262 10^3/uL (130-400)
[2021-03-03 14:59] LABS: ALBUMIN 3.9 GM/DL (3.2-4.5)
[2021-03-03 15:00] LABS: CHLORIDE 102 MMOL/L (98-107); POTASSIUM 4.2 MMOL/L (3.6-5.0); SODIUM 135 MMOL/L (135-145)
[2021-03-03 15:01] LABS: CALCIUM 8.9 MG/DL (8.5-10.1)
[2021-03-03 15:02] LABS: GLUCOSE 264 MG/DL (70-105); TOTAL PROTEIN 7.1 GM/DL (6.4-8.2)
[2021-03-03 15:03] LABS: CARBON DIOXIDE 23 MMOL/L (21-32)
[2021-03-03 15:04] LABS: BILIRUBIN,TOTAL 0.5 MG/DL (0.1-1.0)
[2021-03-03 15:05] LABS: ALKALINE PHOSPHATASE 83 U/L (40-136)
[2021-03-03 15:06] LABS: CREATININE SERUM 0.81 MG/DL (0.60-1.30); GFR ESTIMATED > 60
[2021-03-03 15:07] LABS: BUN/CREATININE RATIO 12
--- NOTE | 2021-03-03 15:07 | Diagnostic Imaging Report ---
INDICATION: Left foot pain. FINDINGS: Three views of the left foot show no fracture, dislocation, or radiopaque foreign object. IMPRESSION: Unremarkable left foot. Dictated by: Dictated on workstation # [id number]
[2021-03-03 15:08] LABS: ALANINE AMINOTRANSFERASE 35 U/L (0-55)
[2021-03-03 15:11] LABS: ERYTHROCYTE SEDIMENTATION RATE 13 MM/HR (0-15)
[2021-03-03] MEDS ORDERED: CLIN300C12 PO ×2 (15:24→15:30)
[2021-03-03 15:40] VITALS: BP 156/90
== END 2021-03-03 15:40 | disposition home or self-care (01) ==
LOC: EDUNIT# 14:09 → ER 14:11
DX: E11.621 Type 2 diabetes mellitus with foot ulcer (principal); L97.522 Non-pressure chronic ulcer of other part of left foot with fat layer exposed; J45.909 Unspecified asthma, uncomplicated; I10 Essential (primary) hypertension; Z88.8 Allergy status to other drugs, medicaments and biological substances; Z87.891 Personal history of nicotine dependence
CPT/HCPCS: 36415; 73630; 80053; 85025; 85652; 87070; 87205

== ENCOUNTER → 2021-03-20 | Outpatient (CLI) | payer OTHER ==
[~2021-03-20] MED LIST changes: +CLIN300C12 PO
== END ==
LOC: WOUNDCARE 09:09
PROVIDERS: ATTEND Surgery
DX: E11.621 Type 2 diabetes mellitus with foot ulcer (principal); E11.42 Type 2 diabetes mellitus with diabetic polyneuropathy; L97.522 Non-pressure chronic ulcer of other part of left foot with fat layer exposed; I70.245 Atherosclerosis of native arteries of left leg with ulceration of other part of foot; A36 Diphtheria
CPT/HCPCS: 11042; A6197; G0463; L4360

== ENCOUNTER → 2021-03-28 | Outpatient (CLI) | payer OTHER | LOC: WOUNDCARE 10:33 | PROVIDERS: ATTEND Surgery | DX: E11.621 Type 2 diabetes mellitus with foot ulcer (principal); I96 Gangrene, not elsewhere classified; A36 Diphtheria; E11.42 Type 2 diabetes mellitus with diabetic polyneuropathy; L97.522 Non-pressure chronic ulcer of other part of left foot with fat layer exposed; I70.245 Atherosclerosis of native arteries of left leg with ulceration of other part of foot | CPT/HCPCS: 11042; G0463 ==

== ENCOUNTER → 2021-04-04 | Outpatient (CLI) | payer OTHER | LOC: WOUNDCARE 10:32 | PROVIDERS: ATTEND Surgery | DX: E11.621 Type 2 diabetes mellitus with foot ulcer (principal); I96 Gangrene, not elsewhere classified; E11.42 Type 2 diabetes mellitus with diabetic polyneuropathy; L97.522 Non-pressure chronic ulcer of other part of left foot with fat layer exposed; I70.245 Atherosclerosis of native arteries of left leg with ulceration of other part of foot; A36 Diphtheria | CPT/HCPCS: 11042; G0463 ==

== ENCOUNTER → 2021-04-21 | Outpatient (CLI) | payer OTHER | LOC: WOUNDCARE 10:30 | PROVIDERS: ATTEND Surgery | DX: E11.621 Type 2 diabetes mellitus with foot ulcer (principal); E11.42 Type 2 diabetes mellitus with diabetic polyneuropathy; L97.522 Non-pressure chronic ulcer of other part of left foot with fat layer exposed; I70.245 Atherosclerosis of native arteries of left leg with ulceration of other part of foot; A36 Diphtheria | CPT/HCPCS: 99213 ==

== ENCOUNTER 2021-04-29 18:39 | Day surgery (SDC) | payer OTHER ==
[~2021-04-29] VITALS: Ht 177.8 cm; Wt 129.5 kg
[2021-04-29 19:13] LABS: BASOPHILS # (AUTO) 0.1 10^3/uL (0.0-0.1); BASOPHILS % (AUTO) 1 % (0-10); EOSINOPHILS # (AUTO) 0.2 10^3/uL (0.0-0.3); EOSINOPHILS % (AUTO) 1 % (0-10); HEMATOCRIT 47 % (40-54); HEMOGLOBIN 15.6 g/dL (13.3-17.7); LYMPHOCYTES # (AUTO) 1.8 10^3/uL (1.0-4.0); LYMPHOCYTES % (AUTO) 9 % (12-44); MEAN CORPUSCULAR HEMOGLOBIN 30 pg (25-34); MEAN CORPUSCULAR HGB CONC 33 g/dL (32-36); MEAN CORPUSCULAR VOLUME 89 fL (80-99); MEAN PLATELET VOLUME 9.4 fL (9.0-12.2); MONOCYTES # (AUTO) 1.7 10^3/uL (0.0-1.0); MONOCYTES % (AUTO) 9 % (0-12); NEUTROPHILS # (AUTO) 15.5 10^3/uL (1.8-7.8); NEUTROPHILS % (AUTO) 80 % (42-75); PLATELET COUNT 281 10^3/uL (130-400); WHITE BLOOD COUNT 19.4 10^3/uL (4.3-11.0)
[2021-04-29] MEDS ORDERED: KETOROLAC 30 MG/ML VIAL IVP ONE (19:15)
[2021-04-29] MEDS ORDERED: NS IV 1000 ML 1,000 ML IV SCH (19:15)
[2021-04-29 19:19] LABS: ALBUMIN 4.1 GM/DL (3.2-4.5); CHLORIDE 100 MMOL/L (98-107); POTASSIUM 3.9 MMOL/L (3.6-5.0); SODIUM 138 MMOL/L (135-145)
[2021-04-29 19:20] LABS: CALCIUM 9.4 MG/DL (8.5-10.1)
[2021-04-29 19:21] LABS: GLUCOSE 166 MG/DL (70-105); TOTAL PROTEIN 7.3 GM/DL (6.4-8.2)
--- NOTE | 2021-04-29 19:21 | ED Abdominal Pain ---
General Chief Complaint: Abdominal/GI Problems Stated Complaint: ABD PAIN Nursing Triage Note: PT ARRIVES TO ER WITH C/O ABD PAIN THAT BEGAN AFTER LUNCH TODAY. HE STATES PAIN IS 8/10 AND SHARP Source of Information: Patient Exam Limitations: No Limitations History of Present Illness Date Seen by Provider: Apr 29, 2021 Time Seen by Provider: 18:44 Initial Comments Patient presents ER by private conveyance with chief complaint of right lower quad abdominal pain starting about noon today. His last oral intake was some milk of magnesia right before coming in. He said no abdominal surgeries. No trauma. He had a normal bowel movement this morning. No known history of diverticulosis but his grandmother had that significantly. He has not smoked since almost a decade and quit drinking 2 years ago. His pain radiates down to his groin and his right testicle. He has no discharge or dysuria. He is in a monogamous relationship with his . No fevers chills nausea vomiting. He rates his pain as a 9 out of 10 with movement but it is acceptable while he lays still. No known history of hernias. Allergies and Home Medications Allergies Coded Allergies: gabapentin (Verified Allergy, Unknown, 05/24/19) Home Medications Albuterol Sulfate 6.7 Gm Hfa.aer.ad, 2 PUFF INH Q6H PRN for WHEEZING Prescribed by: CHUYITA ROCHA on 12/20/19 1232 Amoxicillin/Potassium Clav 1 Each Tablet, 1 EACH PO BID Prescribed by: HALIMA TRENT on 05/25/19 1031 Azithromycin 250 Mg Tablet, 250 MG PO DAILY Prescribed by: CHUYITA ROCHA on 12/20/19 1229 Cefdinir 300 Mg Capsule, 300 MG PO BID Prescribed by: CHUYITA ROCHA on 12/20/19 1229 Clindamycin HCl 300 Mg Capsule, 300 MG PO TID Prescribed by: APPLE DELA CRUZ on 03/03/21 1524 Clindamycin HCl 300 Mg Capsule, 300 MG PO TID Prescribed by: APPLE DELA CRUZ on 03/03/21 1530 Glimepiride 2 Mg Tab, 2 MG PO DAILY@0630 Prescribed by: HALIMA TRENT on 05/25/19 1031 Hydrocodone Bit/Acetaminophen 1 Tab Tab, 1 TAB PO Q4-6HR PRN for PAIN-MODERATE Prescribed by: HALIMA TRENT on 05/25/19 1031 Naproxen Sodium 220 Mg Tablet, 440 MG PO BID PRN for PAIN-MILD, (Reported) Oseltamivir Phosphate 75 Mg Capsule, 75 MG PO BID Prescribed by: CHUYITA ROCHA on 12/20/19 1229 Patient Home Medication List Home Medication List Reviewed: Yes Review of Systems Review of Systems Constitutional: No chills, No diaphoresis EENTM: No Blurred Vision, No Double Vision Respiratory: Denies Cough, Denies Shortness of Air Cardiovascular: Denies Chest Pain, Denies Edema Gastrointestinal: See HPI, Abdominal Pain; Denies Constipated, Denies Diarrhea, Denies Difficulty Swallowing, Denies Nausea Genitourinary: Denies Burning, Denies Discharge Musculoskeletal: No back pain, No joint pain Skin: No pruritus, No rash All Other Systems Reviewed Negative Unless Noted: Yes Past Obqzkzw-Wshcjl-Ylaqqr Hx Patient Social History Tobacco Use?: Yes Smoking Status: Former Smoker Use of E-Cig and/or Vaping dev: No Substance use?: No Alcohol Use?: No Pt feels they are or have been: No Immunizations Up To Date Tetanus Booster (TDap): Less than 5yrs First/Initial COVID19 Vaccinat: JANUARY 2021 Second COVID19 Vaccination Ramon: FEBRUARY 2021 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: [employer] Seasonal Allergies Seasonal Allergies: No Past Medical History Surgeries: Yes (RIGHT ARM( TITANIUM IRON)) Orthopedic Respiratory: Yes (LUNG ISSUES COUPLE YEARS AGO) Asthma, Pneumonia, Chronic Bronchitis, Sleep Apnea Currently Using CPAP: No Currently Using BIPAP: No Cardiac: Yes Hypertension Neurological: Yes (LEFT DROP FOOT, SCIATIA,) Reproductive Disorders: No Genitourinary: No Gastrointestinal: No Musculoskeletal: Yes Arthritis, Foot Drop, Fractures Endocrine: Yes Diabetes, Insulin dep HEENT: No Cancer: No Psychosocial: Yes Anxiety, Depression Integumentary: No Blood Disorders: No Family Medical History Cardiovascular disease 19 FATHER FH: cancer 19 MOTHER Diabetes Physical Exam Vital Signs Vital Signs - First Documented 04/29/21 18:48 Temp 37.2 Pulse 108 Resp 20 B/P (MAP) 133/92 (106) Capillary Refill : Less Than 3 Seconds Height/Weight/BMI Height: 5'10.00" Weight: 303lbs. 1.0oz. 137.019506lt; 40.00 BMI Method:Stated General Appearance: WD/WN, no apparent distress HEENT: PERRL/EOMI, pharynx normal Neck: full range of motion, normal inspection Respiratory: normal breath sounds, no respiratory distress Cardiovascular: normal peripheral pulses, regular rate, rhythm Gastrointestinal: normal bowel sounds, soft, no organomegaly, rebound, tendern ess (Right side especially right lower quadrant with rebound tenderness. Negative for Rovsing sign or psoas sign) Genital/Rectal: normal genital exam, other (Right inguinal canal free of abdominal herniated contents) Extremities: normal range of motion, normal capillary refill Neurologic/Psychiatric: alert, normal mood/affect, oriented x 3 Skin: normal color, warm/dry Focused Exam Sepsis Stage: Sepsis Possible Source: GI Tract/Intra-Abdominal Time of Focused Exam: 19:45 Respiratory: Lungs Clear, Normal Breath Sounds, No Accessory Muscle Use, No Respiratory Distress Cardiovascular: Regular Rate, Rhythm, Normal Peripheral Pulses Capillary Refill: Less Than 3 Seconds Peripheral Pulses: 2+ Radial Pulses (R), 2+ Radial Pulses (L) Skin: normal color, warm/dry Within 3hrs of presentation: Admin fluids, Admin 30ml/kg IBW due to BMI>30, Admin ABX, Blood cultures prior to ABX's, Focus exam, Lactate level Progress/Results/Core Measures Results/Orders Lab Results Laboratory Tests Test 04/29/21 18:50 04/29/21 19:30 Range/Units White Blood Count 19.4 H 4.3-11.0 10^3/uL Red Blood Count 5.28 4.30-5.52 10^6/uL Hemoglobin 15.6 13.3-17.7 g/dL Hematocrit 47 40-54 % Mean Corpuscular Volume 89 80-99 fL Mean Corpuscular Hemoglobin 30 25-34 pg Mean Corpuscular Hemoglobin Concent 33 32-36 g/dL Red Cell Distribution Width 12.9 10.0-14.5 % Platelet Count 281 130-400 10^3/uL Mean Platelet Volume 9.4 9.0-12.2 fL Immature Granulocyte % (Auto) 1 % Neutrophils (%) (Auto) 80 H 42-75 % Lymphocytes (%) (Auto) 9 L 12-44 % Monocytes (%) (Auto) 9 0-12 % Eosinophils (%) (Auto) 1 0-10 % Basophils (%) (Auto) 1 0-10 % Neutrophils # (Auto) 15.5 H 1.8-7.8 10^3/uL Lymphocytes # (Auto) 1.8 1.0-4.0 10^3/uL Monocytes # (Auto) 1.7 H 0.0-1.0 10^3/uL Eosinophils # (Auto) 0.2 0.0-0.3 10^3/uL Basophils # (Auto) 0.1 0.0-0.1 10^3/uL Immature Granulocyte # (Auto) 0.1 0.0-0.1 10^3/uL Neutrophils % (Manual) 74 % Lymphocytes % (Manual) 16 % Monocytes % (Manual) 10 % Blood Morphology Comment NORMAL Sodium Level 138 135-145 MMOL/L Potassium Level 3.9 3.6-5.0 MMOL/L Chloride Level 100 98-107 MMOL/L Carbon Dioxide Level 24 21-32 MMOL/L Anion Gap 14 5-14 MMOL/L Blood Urea Nitrogen 11 7-18 MG/DL Creatinine 0.80 0.60-1.30 MG/DL Estimat Glomerular Filtration Rate > 60 BUN/Creatinine Ratio 14 Glucose Level 166 H 70-105 MG/DL Calcium Level 9.4 8.5-10.1 MG/DL Corrected Calcium 9.3 8.5-10.1 MG/DL Total Bilirubin 0.6 0.1-1.0 MG/DL Aspartate Amino Transf (AST/SGOT) 19 5-34 U/L Alanine Aminotransferase (ALT/SGPT) 26 0-55 U/L Alkaline Phosphatase 92 40-136 U/L C-Reactive Protein High Sensitivity 2.04 H 0.00-0.50 MG/DL Total Protein 7.3 6.4-8.2 GM/DL Albumin 4.1 3.2-4.5 GM/DL Urine Color YELLOW Urine Clarity CLEAR Urine pH 7.0 5-9 Urine Specific [place] 1.015 L 1.016-1.022 Urine Protein NEGATIVE NEGATIVE Urine Glucose (UA) 3+ H NEGATIVE Urine Ketones 1+ H NEGATIVE Urine Nitrite NEGATIVE NEGATIVE Urine Bilirubin NEGATIVE NEGATIVE Urine Urobilinogen 0.2 < = 1.0 MG/DL Urine Leukocyte Esterase NEGATIVE NEGATIVE Urine RBC (Auto) NEGATIVE NEGATIVE Urine RBC NONE /HPF Urine WBC NONE /HPF Urine Crystals NONE /LPF Urine Bacteria NEGATIVE /HPF Urine Casts NONE /LPF Urine Mucus NEGATIVE /LPF Urine Culture Indicated NO My Orders Orders - NAYAN LAING Cbc With Automated Diff (04/29/21 19:05) Comprehensive Metabolic Panel (04/29/21 19:05) Ed Iv/Invasive Line Start (04/29/21 19:05) Ns Iv 1000 Ml (Sodium Chloride 0.9%) (04/29/21 19:15) Ua Culture If Indicated (04/29/21 19:05) Hs C Reactive Protein (04/29/21 19:05) Ct Abd/Pelv W (Appendicitis) (04/29/21 19:14) Ketorolac Injection (Toradol Injection) (04/29/21 19:15) Iohexol Injection (Omnipaque 350 Mg/Ml 1 (04/29/21 20:00) Received Contrast (Hold Metformin- Contr (04/29/21 20:00) Ns (Ivpb) (Sodium Chloride 0.9% Ivpb Bag (04/29/21 20:00) Fentanyl Inj (Sublimaze Injection) (04/29/21 20:00) Manual Differential (04/29/21 18:50) Medications Given in ED Current Medications Medications Dose Ordered Sig/Nena Route Start Time Stop Time Status Last Admin Dose Admin Fentanyl Citrate 50 mcg ONCE ONCE IVP 04/29/21 20:00 04/29/21 20:01 DC 04/29/21 20:03 50 MCG Iohexol 100 ml ONCE ONCE IV 04/29/21 20:00 04/29/21 20:01 DC 04/29/21 20:19 100 ML Ketorolac Tromethamine 30 mg ONCE ONCE IVP 04/29/21 19:15 04/29/21 19:16 DC 04/29/21 19:20 30 MG Morphine Sulfate 2 mg Q2H PRN IVP 04/29/21 20:45 04/29/21 22:45 2 MG Sodium Chloride 100 ml ONCE ONCE IV 04/29/21 20:00 04/29/21 20:01 DC 04/29/21 20:19 80 ML Vital Signs/I&O 04/29/21 18:48 Temp 37.2 Pulse 108 Resp 20 B/P (MAP) 133/92 (106) 04/30/21 00:00 Intake Total 1000 ml Balance 1000 ml Blood Pressure Mean: 106 Progress Progress Note #1: Time: 19:20 Progress Note Concerns for diverticulitis versus appendicitis. Less likely hernia as his inguinal canal is free of abdominal contents. Testicle unremarkable on exam. Plan to give him a liter of fluids, Toradol, check some labs and urine and get a CT of his abdomen pelvis with IV contrast. Progress Note #2: Time: 21:22 Progress Note For some reason there was a delay in obtaining the CBC but this 19,000 white co unt does cause him to be septic so a second liter of fluids was added and Zosyn was ordered. The surgeon has already came down seen the patient and plans to observe him overnight and taken to surgery in the morning. Diagnostic Imaging Diagonstic Imaging: CT Plain Films/CT/US/NM/MRI: abdomen, pelvis Comments [facility], [place] NAME: VANESSA ÉPREZ [facility] REC#: [id number] PT STATUS: REG ER : 1970 PHYSICIAN: NAYAN LIANG MD ADMIT DATE: 04/29/21/ER Signed Date of Exam:04/29/21 CT ABD/PELV W (APPENDICITIS) EXAMINATION: CT abdomen and pelvis with intravenous contrast. TECHNIQUE: Multiple contiguous axial images were obtained through the abdomen and pelvis after the uneventful administration of intravenous contrast. All CT scans use one or more of the following dose optimizing techniques: automated exposure control, MA and/or KvP adjustment based on patient size and exam type or iterative reconstruction. HISTORY: Right lower quadrant pain. COMPARISON: PET/CT on 04/08/2018. FINDINGS: The heart is unremarkable. Atelectasis with associated bronchiectasis is seen in the visualized right lower lobe. Findings are similar to the prior exam. Parapelvic cyst is seen in the left kidney. No evidence of hydronephrosis or renal calculi. No solid renal mass. The urinary bladder is unremarkable. The liver, spleen, pancreas and adrenal glands have a normal appearance. There is no pathologically enlarged mesenteric or retroperitoneal adenopathy. The appendix is dilated and fluid-filled measuring 1.2 cm in max diameter. There is mild periappendicular fat stranding present. No evidence of abscess or perforation. No free fluid or free air is seen in the abdomen and pelvis. No bowel obstruction. Fluid-filled nondilated loops of small bowel are present. No acute osseous abnormalities. There is calcified aortic and iliac atherosclerotic plaque without aneurysm. There is no free air, loculated collection or adenopathy in the pelvis. IMPRESSION: 1. Findings consistent with acute uncomplicated appendicitis. 2. Likely reactive ileus in the small bowel. No evidence of bowel obstruction. No free fluid or free air. Dictated by: Dictated on workstation # [id number] Dict: 04/29/212034 Trans: 04/29/212053 [id number] Interpreted by: TAIWO NORIEGA DO Electronically signed by: TAIWO NORIEGA DO 04/29/212053 Reviewed: Reviewed by Me Departure Communication (Admissions) Time/Spoke to Admitting Phy: 20:41 Dr. Kebede down to see the patient and wrote orders for admission. Impression Primary Impression: Appendicitis Qualified Codes: K35.30 - Acute appendicitis with localized peritonitis, without perforation or gangrene Additional Impression: Sepsis Qualified Codes: A41.9 - Sepsis, unspecified organism Disposition: ADMITTED INPATIENT Condition: Stable Admissions Decision to Admit Reason: Admit from ER (General) Decision to Admit/Date: Apr 29, 2021 Time/Decision to Admit Time: 20:41 Departure-Patient Inst. Referrals: [facility] (PCP) Primary Care Physician WILMER NIELSEN APRN (Family) Primary Care Physician NAYAN LIANG Apr 29, 2021 19:21
[2021-04-29 19:22] LABS: CARBON DIOXIDE 24 MMOL/L (21-32)
[2021-04-29 19:23] LABS: BILIRUBIN,TOTAL 0.6 MG/DL (0.1-1.0)
[2021-04-29 19:24] LABS: ALKALINE PHOSPHATASE 92 U/L (40-136)
[2021-04-29 19:25] LABS: GFR ESTIMATED > 60
[2021-04-29 19:26] LABS: BUN/CREATININE RATIO 14
[2021-04-29 19:28] LABS: ALANINE AMINOTRANSFERASE 26 U/L (0-55)
[2021-04-29 19:39] LABS: BILIRUBIN,URINE NEGATIVE (NEGATIVE); CLARITY,URINE CLEAR; COLOR,URINE YELLOW; GLUCOSE, URINE (UA) 3+ (NEGATIVE); KETONES,URINE 1+ (NEGATIVE); LEUKOCYTE ESTERASE ,URINE NEGATIVE (NEGATIVE); NITRITE,URINE NEGATIVE (NEGATIVE); PROTEIN,URINE NEGATIVE (NEGATIVE)
[2021-04-29] MEDS ORDERED: fentaNYL INJ 100 MCG/2 ML AMP IVP ONE (20:00)
[2021-04-29] MEDS ORDERED: NS 100 ML (IVPB) BAG IV ONE (20:00)
[2021-04-29] MEDS ORDERED: HOLD METFORMIN - RECEIVED CONTRAST 20 ML VIAL IV SCH (20:00)
[2021-04-29] MEDS ORDERED: IOHEXOL 350 MG/ML 100 ML (OMNIPAQUE 350) VIAL IV ONE (20:00)
[2021-04-29 20:04] LABS: BACTERIA,URINE NEGATIVE /HPF
[2021-04-29] MEDS ORDERED: ONDANSETRON 4 MG/2 ML (SDV) Z0FRAN IVP PRN (20:45)
[2021-04-29] MEDS ORDERED: PIPERACILLIN/TAZOBACTAM (BULK) 4.5 GM in NS (IVPB) 100 ML IV SCH (20:45)
--- NOTE | 2021-04-29 20:49 | History & Physical-Surgical ---
History of Present Illness History of Present Illness Reason for visit/HPI Pt asked to see pt regarding RLQ pain. HPI per ED: Patient presents ER by private conveyance with chief complaint of right lower quad abdominal pain starting about noon today. His last oral intake was some milk of magnesia right before coming in. He said no abdominal surgeries. No trauma. He had a normal bowel movement this morning. No known history of diverticulosis but his grandmother had that significantly. He has not smoked since almost a decade and quit drinking 2 years ago. His pain radiates down to his groin and his right testicle. He has no discharge or dysuria. He is in a monogamous relationship with his . No fevers chills nausea vomiting. He rates his pain as a 9 out of 10 with movement but it is acceptable while he lays still. No known history of hernias. When I spoke to pt he states pain started in RLQ, now he has pain across the entire abdomen...but still worst in RLQ. Denies vomiting, but states he is getting more nauseous. He describes a sharp pain. Date of Admission 04/29/2021 Time Seen by a Provider: 20:24 I consulted on this patient on 04/29/21 20:40 Attending Physician Admitting Physician [place] Consult Allergies and Home Medications Allergies Coded Allergies: gabapentin (Verified Allergy, Unknown, 05/24/19) Home Medications Albuterol Sulfate 6.7 Gm Hfa.aer.ad, 2 PUFF INH Q6H PRN for WHEEZING Prescribed by: CHUYITA ROCHA on 12/20/19 1232 Amoxicillin/Potassium Clav 1 Each Tablet, 1 EACH PO BID Prescribed by: HALIMA TRENT on 05/25/19 1031 Azithromycin 250 Mg Tablet, 250 MG PO DAILY Prescribed by: CHUYITA ROCHA on 12/20/19 1229 Cefdinir 300 Mg Capsule, 300 MG PO BID Prescribed by: CHUYITA ROCHA on 12/20/19 1229 Clindamycin HCl 300 Mg Capsule, 300 MG PO TID Prescribed by: APPLE DELA CRUZ on 03/03/21 1524 Clindamycin HCl 300 Mg Capsule, 300 MG PO TID Prescribed by: APPLE DELA CRUZ on 03/03/21 1530 Glimepiride 2 Mg Tab, 2 MG PO DAILY@0630 Prescribed by: HALIMA TRENT on 05/25/19 1031 Hydrocodone Bit/Acetaminophen 1 Tab Tab, 1 TAB PO Q4-6HR PRN for PAIN-MODERATE Prescribed by: HALIMA TRENT on 05/25/19 1031 Naproxen Sodium 220 Mg Tablet, 440 MG PO BID PRN for PAIN-MILD, (Reported) Oseltamivir Phosphate 75 Mg Capsule, 75 MG PO BID Prescribed by: CHUYITA ROCHA on 12/20/19 1229 Patient Home Medication List Home Medication List Reviewed: Yes Past Wxwzgcg-Sxscch-Mevzbo Hx Patient Social History Drug of Choice: marijuana Smoking Status: Former Smoker Former Smoker, Quit: Oct 28, 2007 Type Used: Smokeless Tobacco 2nd Hand Smoke Exposure: No (quit smoking cigarettes in 2009, still chews tobacco) Recent Hopitalizations: No Alcohol Use?: No Have you traveled recently?: No Immunizations Up To Date Tetanus Booster (TDap): Less than 5yrs Seasonal Allergies Seasonal Allergies: No Surgeries History of Surgeries: Yes (RIGHT ARM( TITANIUM IRON)) Surgeries: Orthopedic Respiratory History of Respiratory Disorde: Yes (LUNG ISSUES COUPLE YEARS AGO) Respiratory Disorders: Asthma, Pneumonia, Chronic Bronchitis, Sleep Apnea Cardiovascular History of Cardiac Disorders: Yes Cardiac Disorders: Hypertension Neurological History of Neurological Disord: Yes (LEFT DROP FOOT, SCIATIA,) Reproductive System Hx Reproductive Disorders: No Genitourinary History of Genitourinary Disor: No Gastrointestinal History of Gastrointestinal Di: No Musculoskeletal History of Musculoskeletal Dis: Yes Musculoskeletal Disorders: Arthritis, Foot Drop, Fractures Endocrine History of Endocrine Disorders: Yes Endocrine Disorders: Diabetes, Insulin dep HEENT History of HEENT Disorders: No Cancer History of Cancer: No Psychosocial History of Psychiatric Problem: Yes Behavioral Health Disorders: Anxiety, Depression Integumentary History of Skin or Integumenta: No Blood Transfusions History of Blood Disorders: No Family Medical History Significant Family History: Diabetes Family Medial History: Cardiovascular disease 19 FATHER FH: cancer 19 MOTHER Review of Systems Constitutional: No chills; malaise, weakness EENTM: No blurred vision, No double vision, No mouth pain, No mouth swelling, No epistaxis Respiratory: No dyspnea on exertion, No hemoptysis, No short of breath Cardiovascular: No chest pain, No edema, No palpitations Gastrointestinal: abdominal pain (RLQ); No jaundice; loss of appetite, nausea; No vomiting Genitourinary: No dysuria, No frequency, No hematuria Musculoskeletal: No joint pain, No joint swelling, No muscle pain Skin: No change in color, No change in hair/nails Psychiatric/Neurological: Anxiety, Depressed; Denies Seizure, Denies Tremors Pt denies hx of abnormal bleeding or bruising Physical Exam Vital Signs Vital Signs - First Documented 04/29/21 18:48 Temp 37.2 Pulse 108 Resp 20 B/P (MAP) 133/92 (106) Capillary Refill : Less Than 3 Seconds Height, Weight, BMI Height: 5'10.00" Weight: 303lbs. 1.0oz. [id number]; 40.00 BMI Method:Stated General Appearance: No Apparent Distress, Obese Eyes: Bilateral Eye PERRL, Bilateral Eye EOMI HEENT: Moist Mucous Membranes; No Scleral Icterus (L), No Scleral Icterus (R) Neck: Full Range of Motion, Non Tender, Supple Respiratory: Lungs Clear, Normal Breath Sounds, No Accessory Muscle Use, No Respiratory Distress Cardiovascular: No Murmur, Tachycardia Gastrointestinal: No Organomegaly, Soft; No Distended; Guarding (voluntary), Tenderness (diffusely, but most in RLQ and when pushing in RUQ it hurts RLQ) Rectal: Deferred Back: No CVA Tenderness, No Vertebral Tenderness Extremity: Non Tender, No Calf Tenderness, No Pedal Edema Neurologic/Psychiatric: Alert, Oriented x3, Normal Mood/Affect, computational geneticist II-XII Norm as Tested Skin: Normal Color, Warm/Dry Lymphatic: No Adenopathy (neck, axilla or groin) Data Review Labs Laboratory Tests 04/29/21 18:50: White Blood Count 19.4H, Red Blood Count 5.28, Hemoglobin 15.6, Hematocrit 47, Mean Corpuscular Volume 89, Mean Corpuscular Hemoglobin 30, Mean Corpuscular Hemoglobin Concent 33, Red Cell Distribution Width 12.9, Platelet Count 281, Mean Platelet Volume 9.4, Immature Granulocyte % (Auto) 1, Neutrophils (%) (Auto) 80H, Lymphocytes (%) (Auto) 9L, Monocytes (%) (Auto) 9, Eosinophils (%) (Auto) 1, Basophils (%) (Auto) 1, Neutrophils # (Auto) 15.5H, Lymphocytes # (Auto) 1.8, Monocytes # (Auto) 1.7H, Eosinophils # (Auto) 0.2, Basophils # (Auto) 0.1, Immature Granulocyte # (Auto) 0.1, Sodium Level 138, Potassium Level 3.9, Chloride Level 100, Carbon Dioxide Level 24, Anion Gap 14, Blood Urea Nitrogen 11, Creatinine 0.80, Estimat Glomerular Filtration Rate > 60, BUN/Creatinine Ratio 14, Glucose Level 166H, Calcium Level 9.4, Corrected Calcium 9.3, Total Bilirubin 0.6, Aspartate Amino Transf (AST/SGOT) 19, Alanine Aminotransferase (ALT/SGPT) 26, Alkaline Phosphatase 92, C-Reactive Protein High Sensitivity 2.04H, Total Protein 7.3, Albumin 4.1 04/29/21 19:30: Urine Color YELLOW, Urine Clarity CLEAR, Urine pH 7.0, Urine Specific [place] 1.015L, Urine Protein NEGATIVE, Urine Glucose (UA) 3+H, Urine Ketones 1+H, Urine Nitrite NEGATIVE, Urine Bilirubin NEGATIVE, Urine Urobilinogen 0.2, Urine Leukocyte Esterase NEGATIVE, Urine RBC (Auto) NEGATIVE, Urine RBC NONE, Urine WBC NONE, Urine Crystals NONE, Urine Bacteria NEGATIVE, Urine Casts NONE, Urine Mucus NEGATIVE, Urine Culture Indicated NO Assessment/Plan Assessment/Plan Admission Diagonsis Acute Appendicitis Admission Status: Observation Assessment/Plan Acute appendicitis Dehydration Atelectasis vs Pneumonia in Right lower lobe I reviewed the CT myself and saw some minimal stranding around appendix; which usually indicates inflammation. As well when I measured it, it was 12mm and I think I saw an appendicolith. I would like to admit the pt and get him hydrated and started on IV ABX and plan on Laparoscopic appendectomy in the morning. I discussed the procedure with the pt and we went over risks and complications; not limited to pain, bleeding, infection, scar and damage to bowel. All questions answered to his satisfaction. I am also starting pain meds, anti-emetics and NPO. He may also have an atelectasis or pneumonia in right lower lobe, will make sure he gets IS and RT. LILY LARA DO Apr 29, 2021 20:48
--- NOTE | 2021-04-29 20:55 | Diagnostic Imaging Report ---
EXAMINATION: CT abdomen and pelvis with intravenous contrast. TECHNIQUE: Multiple contiguous axial images were obtained through the abdomen and pelvis after the uneventful administration of intravenous contrast. All CT scans use one or more of the following dose optimizing techniques: automated exposure control, MA and/or KvP adjustment based on patient size and exam type or iterative reconstruction. HISTORY: Right lower quadrant pain. COMPARISON: PET/CT on 04/08/2018. FINDINGS: The heart is unremarkable. Atelectasis with associated bronchiectasis is seen in the visualized right lower lobe. Findings are similar to the prior exam. Parapelvic cyst is seen in the left kidney. No evidence of hydronephrosis or renal calculi. No solid renal mass. The urinary bladder is unremarkable. The liver, spleen, pancreas and adrenal glands have a normal appearance. There is no pathologically enlarged mesenteric or retroperitoneal adenopathy. The appendix is dilated and fluid-filled measuring 1.2 cm in max diameter. There is mild periappendicular fat stranding present. No evidence of abscess or perforation. No free fluid or free air is seen in the abdomen and pelvis. No bowel obstruction. Fluid-filled nondilated loops of small bowel are present. No acute osseous abnormalities. There is calcified aortic and iliac atherosclerotic plaque without aneurysm. There is no free air, loculated collection or adenopathy in the pelvis. IMPRESSION: 1. Findings consistent with acute uncomplicated appendicitis. 2. Likely reactive ileus in the small bowel. No evidence of bowel obstruction. No free fluid or free air. Dictated by: Dictated on workstation # [id number]
[2021-04-29 21:59] LABS: LYMPHOCYTES % (MANUAL) 16 %; MONOCYTES % (MANUAL) 10 %; NEUTROPHILS % (MANUAL) 74 %; RBC MORPH NORMAL
[2021-04-29] MEDS ORDERED: PIPERACILLIN/TAZOBACTAM 4.5 GM in NS (IVPB) 100 ML IV ONE (22:00)
[2021-04-29] MEDS: morphine INJ 4 MG/ML 1 ML (VIAL/SYRINGE) IVP PRN (22:45)
[2021-04-29 22:55] VITALS: BP 125/77
[2021-04-29] MEDS: LACTATED RINGERS 1,000 ML IV SCH (23:34)
[2021-04-30] VITALS (13 sets, daily range): BP systolic 104–174; BP diastolic 65–98
[2021-04-30] MEDS: LACTATED RINGERS 1,000 ML IV SCH ×2 (02:45→05:34)
[2021-04-30] MEDS: PIPERACILLIN/TAZO 4.5 GM/NS 100 ML IV SCH ×4 (05:34→11:20)
[2021-04-30] MEDS ORDERED: LIDOCAINE PF 2% 5 ML (XYLOCAINE) VIAL ONE (07:36)
[2021-04-30] MEDS ORDERED: ONDANSETRON 4 MG/2 ML (SDV) Z0FRAN ONE ×2 (07:36→08:16)
[2021-04-30] MEDS ORDERED: proPOfol 200 MG/20 ML (DIPRIVAN) VIAL IV ONE (07:36)
[2021-04-30] MEDS ORDERED: ROCURONIUM 10 MG/ML 5 ML SYRINGE IV ONE (07:36)
[2021-04-30] MEDS ORDERED: fentaNYL INJ 100 MCG/2 ML AMP ONE (07:36)
[2021-04-30] MEDS ORDERED: MIDAZOLAM 2 MG/2 ML (VERSED) VIAL ONE (07:37)
[2021-04-30] MEDS ORDERED: LIDOCAINE/EPI 1%-1:200,000 (XYLOCAINE) 30 ML VIAL ONE (07:43)
[2021-04-30] MEDS: LACTATED RINGERS 1,000 ML IV PRN ×2 (07:50→08:42)
[2021-04-30] MEDS ORDERED: morphine INJ 10 MG/ML 1ML (SYR OR VIAL) ONE (08:15)
[2021-04-30] MEDS ORDERED: HYDROmorphone 2 MG/ML VIAL (DILAUDID) ONE (08:16)
[2021-04-30] MEDS ORDERED: PHENYLEPHRINE 100 MCG/ML 10 ML (ANESTHESIA) SYR ONE (08:44)
[2021-04-30] MEDS ORDERED: GLYCOPYRROLATE 0.2 MG/ML (ROBINUL) 2 ML VIAL ONE (08:56)
[2021-04-30] MEDS ORDERED: NEOSTIGMINE 3 MG/3 ML VIAL ONE (08:56)
[2021-04-30] MEDS ORDERED: SEVOFLURANE (ULTANE) 15 ML INHAL SOLN ONE (08:57)
[2021-04-30] MEDS ORDERED: PANTOPRAZOLE 40 MG (PROTONIX) VIAL IV SCH (09:00)
[2021-04-30] MEDS ORDERED: PROMETHAZINE INJ 25 MG/ML (PHENERGAN) AMP ONE (09:13)
[2021-04-30] MEDS ORDERED: MEPERIDINE (DEMEROL) INJ 50 MG/ML IVP ONE (09:15)
[2021-04-30] MEDS ORDERED: PROMETHAZINE INJ 25 MG/ML (PHENERGAN) AMP IVP ONE (09:15)
[2021-04-30] MEDS ORDERED: HYDROmorphone 2 MG/ML VIAL (DILAUDID) IV ONE (09:15)
[2021-04-30] MEDS ORDERED: morphine INJ 10 MG/ML 1ML (SYR OR VIAL) IVP ONE (09:15)
[2021-04-30] MEDS: ONDANSETRON 4 MG/2 ML (SDV) Z0FRAN IVP PRN ×2 (09:15→09:22)
--- NOTE | 2021-04-30 09:36 | Progress Note-Post Operative ---
Post-Operative Progess Note Surgeon (s)/Beater Engineer (s) Surgeon LILY LARA DO Beater Engineer: CASEY Velasco Pre-Operative Diagnosis Acute appy Post-Operative Diagnosis same plus early b/l inguinal hernia Procedure & Operative Findings Date of Procedure 04/30/21 Procedure Performed/Findings PROCEDURE: Laparoscopic appendectomy. COMPLICATIONS: None. INDICATIONS: The patient is a 50 year old male who has been having right lower quadrant abdominal pain. Patient's exam consistent with appendicitis. I discussed risk and benefits of laparoscopic appendectomy and all indicated procedures with the possibility being a normal appendix. The patient understands the risks and benefits and wishes to proceed. Consent was signed on the chart. DESCRIPTION OF PROCEDURE: The patient was taken to the operating suite, prepped and draped in a sterile fashion. Timeout was performed. Local anesthetic was infiltrated just above the umbilicus and 11-blade scalpel was used to make a skin incision. Cautery was used to dissect down to the fascia and scored. Kochers were used to grasp and elevate it and the abdomen was then entered. A 0 Vicryl was placed in a [id number] fashion for closure at the end of the case. The balloon trocar was inserted into the abdomen and pneumoperitoneum was achieved. Under direct visualization of the laparoscope, a 5 mm trocar was placed in the suprapubic region and a 5 mm trocar was placed in the left lower quadrant. Appendix was located; it was retrocecal and had fibrinous material with some areas of necrosis. Started dissecting the mesoappendix with the Ligasure, coming across and clamping then coagulating and cutting. Freed up down to the base of the appendix, made sure we were away from the Terminal ileum and the Cecum. Once at the base an Endo-GRACIE 2.5 stapler was then fired across the base of the appendix. It was then placed in an Endobag and removed through the 12 mm trocar site. The abdomen was then irrigated and suctioned. Pt had the beginnings of Left indirect inguinal hernia and very small direct inguinal hernia. The abdomen was then desufflated and the trocars were removed. The 0 Vicryl placed at the beginning of the case was then tied closing the 12 mm fascial defect. The skin was then closed using 4-0 Monocryl in a subcuticular fashion. The abdomen was then washed and dried and Skin Affix was placed over the incisions. The patient tolerated the procedure well without any complications and was taken to the recovery room in stable condition. Anesthesia Type GET Estimated Blood Loss Estimated blood loss (mL): scant Specimens/Packing Specimens Removed LILY Salmon DO Apr 30, 2021 09:36
[2021-04-30] MEDS ORDERED: ACHD5005 PO (09:39)
--- NOTE | 2021-04-30 09:41 | Discharge Inst-Surgical ---
Discharge Inst-Surgical Depart Medication/Instructions New, Converted or Re-Newed RX: Transmitted to Pharmacy Patient Instructions Follow up Appt: Make appointment for 1 week. [phone] Instructions: No lifting greater than 20 pounds. No strenuous activity. May shower in 24 hours, no tub bath or soaking. Use incentive spirometer at home as directed. No Smoking Skin/Wound Care: May remove bandages in am. You need to leave the Dermabond on incision it will fall off on it's own. Symptoms to Report: Appetite Changes, Extremity Discoloration, Numbness/Tingling, Swelling Increased, Bleeding Excessive, Eyesight Changes, Pain Increased, Urine Color Change, Constipation(Persistent), Fever over 101 degree F, Pain/Pressure in chest, Urinating Difficulty, Cough Up/Vomit Blood, Heart Beat Irreg/Pounding, Pain/Pressure in jaw, Cramps in feet or legs, Lightheadedness, Pain/Pressure in shoulder, Diarrhea(Persistent), Memory Changes Suddenly, Questions/Concerns, Weight gain consecutive days, Dizziness/Fainting, Nausea/Vomiting, Shortness of Breath, Weight gain over 2 pounds If questions or concerns contact your physician Or seek help at emergency department. Activity Activity as Tolerated: Yes Activity Instructions: Avoid Stress to Incision Driving Instructions: No Driving/Refer to Dr. Vasquez Discharge Diet: No Restrictions Diet After 24 Hours: Clear Liquid if Nauseous If Any Problems/Questions/Issu: Contact Your Physician, Go to Emergency Room Skin/Wound Care Infection Signs and Symptoms: Increased Redness, Foul Odor of Wound, Increased Drainage, Skin Itchy or Has a Rash, Increased Swelling, Temperature Above 101 F Wound Care Comment: heating pad to shoulder or neck for pain Bathing Instructions: Shower Stitches/[place]/Dermabond Dis: Dermabond Ice Pack: Ice On and Off Site (at incisions for pain) LILY LARA DO Apr 30, 2021 09:41
--- NOTE | 2021-04-30 10:56 | Anesthesia-General Post-Op ---
General Patient Condition Mental Status/LOC: Same as Preop Cardiovascular: Satisfactory Nausea/Vomiting: Absent Respiratory: Satisfactory Pain: Controlled Complications: Absent Post Op Complications Complications None Follow Up Care/Instructions Patient Instructions None needed. Anesthesia/Patient Condition Patient Condition Patient is doing well, no complaints, stable vital signs, no apparent adverse anesthesia problems. No complications reported per nursing. ELIEL RAZO CRNA Apr 30, 2021 10:56
[2021-04-30] MEDS: morphine INJ 4 MG/ML 1 ML (VIAL/SYRINGE) IVP PRN (13:28)
== END 2021-04-30 15:50 | disposition home or self-care (01) ==
LOC: EDUNIT# 18:39 → ER 18:40 → SDC 21:45 → UNDOADMOB 21:45 → 4TH 21:45 → UNDODISOB 04-30 15:50 → SDC 04-30 15:50
PROVIDERS: ATTEND Surgery
DX: K35.80 Unspecified acute appendicitis (principal); I10 Essential (primary) hypertension; J45.909 Unspecified asthma, uncomplicated; G47.33 Obstructive sleep apnea (adult) (pediatric); E11.40 Type 2 diabetes mellitus with diabetic neuropathy, unspecified; F32.9 Major depressive disorder, single episode, unspecified; M19.90 Unspecified osteoarthritis, unspecified site; F41.9 Anxiety disorder, unspecified; E86.0 Dehydration; Z79.899 Other long term (current) drug therapy; Z87.891 Personal history of nicotine dependence; Z79.2 Long term (current) use of antibiotics; Z79.891 Long term (current) use of opiate analgesic; Z79.4 Long term (current) use of insulin
CPT/HCPCS: 36415; 74177; 80053; 81000; 82947; 85007; 85027; 86141; 87081

== ENCOUNTER → 2021-07-06 | Outpatient (CLI) | payer OTHER | LOC: WOUNDCARE 09:02 | PROVIDERS: ATTEND Surgery | DX: E11.621 Type 2 diabetes mellitus with foot ulcer (principal); E11.42 Type 2 diabetes mellitus with diabetic polyneuropathy; L97.522 Non-pressure chronic ulcer of other part of left foot with fat layer exposed; T65.212A Toxic effect of chewing tobacco, intentional self-harm, initial encounter; F17.228 Nicotine dependence, chewing tobacco, with other nicotine-induced disorders | CPT/HCPCS: 11042; A6197; G0463 ==

== ENCOUNTER → 2021-07-19 | Outpatient (CLI) | payer OTHER | LOC: WOUNDCARE 08:33 | PROVIDERS: ATTEND Surgery | DX: E11.621 Type 2 diabetes mellitus with foot ulcer (principal); I96 Gangrene, not elsewhere classified; E11.42 Type 2 diabetes mellitus with diabetic polyneuropathy; L97.522 Non-pressure chronic ulcer of other part of left foot with fat layer exposed; T65.222A Toxic effect of tobacco cigarettes, intentional self-harm, initial encounter; F17.218 Nicotine dependence, cigarettes, with other nicotine-induced disorders | CPT/HCPCS: 11042; G0463 ==

== ENCOUNTER → 2021-07-26 | Outpatient (CLI) | payer OTHER | LOC: WOUNDCARE 08:19 | PROVIDERS: ATTEND Surgery | DX: E11.621 Type 2 diabetes mellitus with foot ulcer (principal); E11.42 Type 2 diabetes mellitus with diabetic polyneuropathy; L97.522 Non-pressure chronic ulcer of other part of left foot with fat layer exposed; T65.212A Toxic effect of chewing tobacco, intentional self-harm, initial encounter; E11.52 Type 2 diabetes mellitus with diabetic peripheral angiopathy with gangrene; F17.228 Nicotine dependence, chewing tobacco, with other nicotine-induced disorders | CPT/HCPCS: 11042; A6207; G0463 ==

== ENCOUNTER → 2021-07-31 | Outpatient (CLI) | payer OTHER | LOC: WOUNDCARE 09:18 | PROVIDERS: ATTEND Surgery | DX: E11.621 Type 2 diabetes mellitus with foot ulcer (principal); I96 Gangrene, not elsewhere classified; E11.42 Type 2 diabetes mellitus with diabetic polyneuropathy; L97.522 Non-pressure chronic ulcer of other part of left foot with fat layer exposed; T65.212A Toxic effect of chewing tobacco, intentional self-harm, initial encounter; F17.228 Nicotine dependence, chewing tobacco, with other nicotine-induced disorders | CPT/HCPCS: 11042; A6207; G0463 ==

== ENCOUNTER → 2021-08-02 | Outpatient (CLI) | payer OTHER | LOC: WOUNDCARE 09:01 | PROVIDERS: ATTEND Surgery | DX: E11.621 Type 2 diabetes mellitus with foot ulcer (principal); E11.42 Type 2 diabetes mellitus with diabetic polyneuropathy; L97.522 Non-pressure chronic ulcer of other part of left foot with fat layer exposed; T65.222A Toxic effect of tobacco cigarettes, intentional self-harm, initial encounter; E11.52 Type 2 diabetes mellitus with diabetic peripheral angiopathy with gangrene; F17.228 Nicotine dependence, chewing tobacco, with other nicotine-induced disorders | CPT/HCPCS: 29445; G0463 ==

== ENCOUNTER → 2021-08-09 | Outpatient (CLI) | payer OTHER | LOC: WOUNDCARE 09:11 | PROVIDERS: ATTEND Surgery | DX: E11.621 Type 2 diabetes mellitus with foot ulcer (principal); E11.42 Type 2 diabetes mellitus with diabetic polyneuropathy; L97.522 Non-pressure chronic ulcer of other part of left foot with fat layer exposed; T65.222A Toxic effect of tobacco cigarettes, intentional self-harm, initial encounter; F17.218 Nicotine dependence, cigarettes, with other nicotine-induced disorders | CPT/HCPCS: 99212 ==

== ENCOUNTER → 2021-08-16 | Outpatient (CLI) | payer OTHER | LOC: WOUNDCARE 08:46 | PROVIDERS: ATTEND Family Medicine | DX: E11.621 Type 2 diabetes mellitus with foot ulcer (principal); E11.42 Type 2 diabetes mellitus with diabetic polyneuropathy; L97.522 Non-pressure chronic ulcer of other part of left foot with fat layer exposed; T65.222A Toxic effect of tobacco cigarettes, intentional self-harm, initial encounter; F17.218 Nicotine dependence, cigarettes, with other nicotine-induced disorders | CPT/HCPCS: 99212 ==

== ENCOUNTER → 2021-10-04 | Outpatient (CLI) | payer OTHER ==
[~2021-10-04] MED LIST changes: +CLIN-144 PO; -CLIN300C12 PO
== END ==
LOC: WOUNDCARE 09:03
PROVIDERS: ATTEND Family Medicine
DX: E11.65 Type 2 diabetes mellitus with hyperglycemia (principal); M14.672 Charcot's joint, left ankle and foot; L84 Corns and callosities; M21.372 Foot drop, left foot; L03.116 Cellulitis of left lower limb
CPT/HCPCS: 99213

== ENCOUNTER → 2022-01-24 | Outpatient (CLI) | payer OTHER | LOC: WOUNDCARE 09:00 | PROVIDERS: ATTEND Family Medicine | DX: L84 Corns and callosities (principal); E11.65 Type 2 diabetes mellitus with hyperglycemia; E11.43 Type 2 diabetes mellitus with diabetic autonomic (poly)neuropathy; M21.372 Foot drop, left foot; M14.672 Charcot's joint, left ankle and foot | CPT/HCPCS: 99213 ==

== ENCOUNTER → 2022-07-04 | Outpatient (CLI) | payer OTHER ==
[2022-07-04 15:40] LABS: BASOPHILS # (AUTO) 0.1 10^3/uL (0.0-0.1); BASOPHILS % (AUTO) 1 % (0-10); EOSINOPHILS # (AUTO) 0.2 10^3/uL (0.0-0.3); EOSINOPHILS % (AUTO) 2 % (0-10); HEMATOCRIT 46 % (40-54); HEMOGLOBIN 15.8 g/dL (13.3-17.7); LYMPHOCYTES # (AUTO) 2.1 10^3/uL (1.0-4.0); LYMPHOCYTES % (AUTO) 24 % (12-44); MEAN CORPUSCULAR HEMOGLOBIN 30 pg (25-34); MEAN CORPUSCULAR HGB CONC 34 g/dL (32-36); MEAN CORPUSCULAR VOLUME 88 fL (80-99); MEAN PLATELET VOLUME 9.2 fL (9.0-12.2); MONOCYTES # (AUTO) 0.6 10^3/uL (0.0-1.0); MONOCYTES % (AUTO) 7 % (0-12); NEUTROPHILS # (AUTO) 5.9 10^3/uL (1.8-7.8); NEUTROPHILS % (AUTO) 66 % (42-75); PLATELET COUNT 245 10^3/uL (130-400)
[2022-07-04 15:43] LABS: ALBUMIN 3.9 GM/DL (3.2-4.5); POTASSIUM 4.1 MMOL/L (3.6-5.0)
[2022-07-04 15:44] LABS: CALCIUM 9.4 MG/DL (8.5-10.1)
[2022-07-04 15:45] LABS: TOTAL PROTEIN 7.1 GM/DL (6.4-8.2)
[2022-07-04 15:47] LABS: BILIRUBIN,TOTAL 0.4 MG/DL (0.1-1.0)
[2022-07-04 15:49] LABS: CREATININE SERUM 1.11 MG/DL (0.60-1.30)
[2022-07-04 16:20] LABS: ERYTHROCYTE SEDIMENTATION RATE 9 MM/HR (0-30)
== END ==
LOC: WOUNDCARE 13:39
PROVIDERS: ATTEND Family Medicine
DX: E11.621 Type 2 diabetes mellitus with foot ulcer (principal); L97.522 Non-pressure chronic ulcer of other part of left foot with fat layer exposed; E11.65 Type 2 diabetes mellitus with hyperglycemia; M20.42 Other hammer toe(s) (acquired), left foot; I70.245 Atherosclerosis of native arteries of left leg with ulceration of other part of foot; E66.01 Morbid (severe) obesity due to excess calories; Z68.41 Body mass index [BMI] 40.0-44.9, adult
CPT/HCPCS: 11042; 80053; 83036; 85025; 85652; 86141; 87070; 87205; A6197; G0463; L4360; 36415; 87077

== ENCOUNTER → 2022-07-13 | Outpatient (CLI) | payer OTHER | LOC: WOUNDCARE 09:22 | PROVIDERS: ATTEND Family Medicine | DX: E11.621 Type 2 diabetes mellitus with foot ulcer (principal); L97.509 Non-pressure chronic ulcer of other part of unspecified foot with unspecified severity; E11.65 Type 2 diabetes mellitus with hyperglycemia; M20.42 Other hammer toe(s) (acquired), left foot; I70.245 Atherosclerosis of native arteries of left leg with ulceration of other part of foot; M21.372 Foot drop, left foot; M14.672 Charcot's joint, left ankle and foot; E66.01 Morbid (severe) obesity due to excess calories | CPT/HCPCS: 99212 ==

== ENCOUNTER → 2022-09-06 | Outpatient (CLI) | payer OTHER ==
[2022-09-06 09:50] LABS: CALCIUM 9.3 MG/DL (8.5-10.1); CREATININE SERUM 0.84 MG/DL (0.60-1.30); POTASSIUM 4.1 MMOL/L (3.6-5.0)
== END ==
LOC: WOUNDCARE 08:15
PROVIDERS: ATTEND Family Medicine
DX: L97.522 Non-pressure chronic ulcer of other part of left foot with fat layer exposed (principal); E11.65 Type 2 diabetes mellitus with hyperglycemia; E11.621 Type 2 diabetes mellitus with foot ulcer; E11.40 Type 2 diabetes mellitus with diabetic neuropathy, unspecified; M14.672 Charcot's joint, left ankle and foot; M21.372 Foot drop, left foot; I70.245 Atherosclerosis of native arteries of left leg with ulceration of other part of foot; E66.01 Morbid (severe) obesity due to excess calories; M20.42 Other hammer toe(s) (acquired), left foot; Z91.119 Patient's noncompliance with dietary regimen due to unspecified reason; Z91.14 Patient's other noncompliance with medication regimen; J44.1 Chronic obstructive pulmonary disease with (acute) exacerbation
CPT/HCPCS: 11042; 80048; 87070; 87077; 87205; A6197; G0463; 36415

== ENCOUNTER → 2022-09-14 | Outpatient (CLI) | payer OTHER | LOC: WOUNDCARE 10:44 | PROVIDERS: ATTEND Family Medicine | DX: L97.522 Non-pressure chronic ulcer of other part of left foot with fat layer exposed (principal); E11.65 Type 2 diabetes mellitus with hyperglycemia; E11.621 Type 2 diabetes mellitus with foot ulcer; E11.40 Type 2 diabetes mellitus with diabetic neuropathy, unspecified; M14.672 Charcot's joint, left ankle and foot; M21.372 Foot drop, left foot; I70.248 Atherosclerosis of native arteries of left leg with ulceration of other part of lower leg; E66.01 Morbid (severe) obesity due to excess calories; M20.42 Other hammer toe(s) (acquired), left foot; Z91.119 Patient's noncompliance with dietary regimen due to unspecified reason; Z91.14 Patient's other noncompliance with medication regimen; J44.1 Chronic obstructive pulmonary disease with (acute) exacerbation; E11.52 Type 2 diabetes mellitus with diabetic peripheral angiopathy with gangrene; I96 Gangrene, not elsewhere classified | CPT/HCPCS: 99211 ==

== ENCOUNTER → 2022-12-11 | Outpatient (CLI) | payer OTHER ==
[2022-12-11 11:05] LABS: BASOPHILS # (AUTO) 0.1 10^3/uL (0.0-0.1); BASOPHILS % (AUTO) 1 % (0-10); EOSINOPHILS # (AUTO) 0.2 10^3/uL (0.0-0.3); EOSINOPHILS % (AUTO) 2 % (0-10); HEMATOCRIT 52 % (40-54); LYMPHOCYTES % (AUTO) 21 % (12-44); MEAN CORPUSCULAR HEMOGLOBIN 29 pg (25-34); MEAN CORPUSCULAR HGB CONC 33 g/dL (32-36); MEAN CORPUSCULAR VOLUME 87 fL (80-99); MEAN PLATELET VOLUME 9.2 fL (9.0-12.2); MONOCYTES # (AUTO) 0.7 10^3/uL (0.0-1.0); MONOCYTES % (AUTO) 7 % (0-12); NEUTROPHILS # (AUTO) 6.5 10^3/uL (1.8-7.8); NEUTROPHILS % (AUTO) 69 % (42-75); PLATELET COUNT 253 10^3/uL (130-400); WHITE BLOOD COUNT 9.5 10^3/uL (4.3-11.0)
[2022-12-11 11:16] LABS: ALBUMIN 4.1 GM/DL (3.2-4.5); POTASSIUM 4.6 MMOL/L (3.6-5.0)
[2022-12-11 11:17] LABS: CALCIUM 9.8 MG/DL (8.5-10.1)
[2022-12-11 11:19] LABS: TOTAL PROTEIN 7.7 GM/DL (6.4-8.2)
[2022-12-11 11:20] LABS: BILIRUBIN,TOTAL 0.5 MG/DL (0.1-1.0)
[2022-12-11 11:22] LABS: CREATININE SERUM 0.98 MG/DL (0.60-1.30)
[2022-12-11 11:37] LABS: ERYTHROCYTE SEDIMENTATION RATE 8 MM/HR (0-30)
== END ==
LOC: WOUNDCARE 09:50
PROVIDERS: ATTEND Family Medicine
DX: L97.522 Non-pressure chronic ulcer of other part of left foot with fat layer exposed (principal); E11.621 Type 2 diabetes mellitus with foot ulcer; E11.65 Type 2 diabetes mellitus with hyperglycemia; E11.40 Type 2 diabetes mellitus with diabetic neuropathy, unspecified; M14.672 Charcot's joint, left ankle and foot; M20.42 Other hammer toe(s) (acquired), left foot; E66.01 Morbid (severe) obesity due to excess calories; Z68.41 Body mass index [BMI] 40.0-44.9, adult; A49.9 Bacterial infection, unspecified; R63.4 Abnormal weight loss; R11.10 Vomiting, unspecified
CPT/HCPCS: 11042; 80053; 85025; 85652; 86141; 87070; 87077; 87205; A6197; G0463; 36415

== ENCOUNTER 2023-02-04 09:14 | Emergency (ER) | payer OTHER ==
[~2023-02-04 09:14] MED LIST changes: -INSU100I29 SQ; +INSU100I30 SQ
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
[2023-02-04] MEDS ORDERED: fentaNYL INJ 100 MCG/2 ML AMP IVP ONE (10:15)
[2023-02-04 10:28] LABS: BASOPHILS # (AUTO) 0.1 10^3/uL (0.0-0.1); BASOPHILS % (AUTO) 1 % (0-10); EOSINOPHILS # (AUTO) 0.2 10^3/uL (0.0-0.3); EOSINOPHILS % (AUTO) 2 % (0-10); HEMATOCRIT 51 % (40-54); HEMOGLOBIN 16.8 g/dL (13.3-17.7); LYMPHOCYTES % (AUTO) 20 % (12-44); MEAN CORPUSCULAR HEMOGLOBIN 29 pg (25-34); MEAN CORPUSCULAR HGB CONC 33 g/dL (32-36); MEAN CORPUSCULAR VOLUME 87 fL (80-99); MEAN PLATELET VOLUME 9.4 fL (9.0-12.2); MONOCYTES # (AUTO) 0.8 10^3/uL (0.0-1.0); MONOCYTES % (AUTO) 8 % (0-12); NEUTROPHILS # (AUTO) 6.5 10^3/uL (1.8-7.8); NEUTROPHILS % (AUTO) 68 % (42-75); PLATELET COUNT 287 10^3/uL (130-400); WHITE BLOOD COUNT 9.7 10^3/uL (4.3-11.0)
[2023-02-04 10:38] LABS: ALBUMIN 3.7 GM/DL (3.2-4.5); POTASSIUM 4.4 MMOL/L (3.6-5.0)
[2023-02-04 10:39] LABS: CALCIUM 9.6 MG/DL (8.5-10.1)
[2023-02-04 10:40] LABS: PROTHROMBIN TIME PATIENT 13.2 SEC (12.2-14.7); TOTAL PROTEIN 7.4 GM/DL (6.4-8.2)
[2023-02-04 10:42] LABS: BILIRUBIN,TOTAL 0.3 MG/DL (0.1-1.0)
[2023-02-04 10:44] LABS: CREATININE SERUM 0.83 MG/DL (0.60-1.30)
--- NOTE | 2023-02-04 10:44 | Diagnostic Imaging Report ---
History : left foot pain. TECHNIQUE: AP, lateral, and oblique views FINDINGS: Bones: There is no evidence of acute fracture or dislocation. Joints: Mild joint space narrowing within the interphalangeal joint and ankle joint. Miscellaneous: Vascular calcifications. IMPRESSION: No evidence of acute fracture. IMPRESSION: No acute osseous findings. Vascular calcifications may be seen with peripheral artery disease. Dictated by: Dictated on workstation # [id number]
[2023-02-04 11:38] VITALS: BP 136/83
[2023-02-04] MEDS ORDERED: CEPH500T PO (11:38)
== END 2023-02-04 11:43 | disposition home or self-care (01) ==
LOC: EDUNIT# 09:14 → ER 09:16
DX: E11.621 Type 2 diabetes mellitus with foot ulcer (principal); L97.529 Non-pressure chronic ulcer of other part of left foot with unspecified severity; Z79.4 Long term (current) use of insulin
CPT/HCPCS: 36415; 73630; 80053; 83605; 85025; 85610; 85730; 86141; 87040; 87070; 87205

== ENCOUNTER → 2023-02-07 | Outpatient (CLI) | payer OTHER ==
[~2023-02-07] MED LIST changes: +CEPH500T PO
== END ==
LOC: WOUNDCARE 09:24
PROVIDERS: ATTEND Family Medicine
DX: E11.621 Type 2 diabetes mellitus with foot ulcer (principal); L97.524 Non-pressure chronic ulcer of other part of left foot with necrosis of bone; E11.65 Type 2 diabetes mellitus with hyperglycemia; M14.672 Charcot's joint, left ankle and foot; E11.40 Type 2 diabetes mellitus with diabetic neuropathy, unspecified; Z68.41 Body mass index [BMI] 40.0-44.9, adult; E66.01 Morbid (severe) obesity due to excess calories; B95.0 Streptococcus, group A, as the cause of diseases classified elsewhere
CPT/HCPCS: 11042; A6260; G0463

== ENCOUNTER → 2023-02-14 | Outpatient (CLI) | payer OTHER ==
[~2023-02-14] MED LIST changes: +GADOTERATE 0.5 MMOL/ML (CLARISCAN) 20 ML VIAL IV ONE
--- NOTE | 2023-02-14 12:26 | Diagnostic Imaging Report ---
Exam: MRI left foot without contrast. Date: February 14, 2023. Indication: 52-year-old male, left foot ulcer. Comparison: Left foot radiographs February 04, 2023. Technique: Multiple noncontrast MRI sequences of the foot were obtained. Findings: The Lisfranc ligament proper is intact. The visualized portions of the peroneal tendons, anterior extensor tendons, and posterior flexor tendons are intact. The visualized portions of the plantar fascia are intact. There is no T1 marrow signal loss or bone destruction. There is no acute fracture, bone contusion, stress reaction, or other bone marrow signal abnormality. The joint spaces appear well-preserved. There is no joint effusion. There is a marker denoting area of focal concern which is volarly located near the level of the fourth metatarsophalangeal joint. There is no identified focal fluid collection or abscess on noncontrast imaging assessment. There is no particularly prominent subcutaneous edema in this region or otherwise noted. Impression: 1. No evidence of osteomyelitis or other acute osseous abnormality. 2. No identified focal fluid collection or abscess. 3. No evidence of septic arthritis. 4. Intact imaged tendons and Lisfranc ligament proper. Dictated by: Dictated on workstation # [id number]
== END ==
LOC: RAD 09:21
PROVIDERS: ATTEND Family Medicine
DX: L97.522 Non-pressure chronic ulcer of other part of left foot with fat layer exposed (principal); E11.65 Type 2 diabetes mellitus with hyperglycemia; E11.621 Type 2 diabetes mellitus with foot ulcer; E11.40 Type 2 diabetes mellitus with diabetic neuropathy, unspecified; M14.672 Charcot's joint, left ankle and foot; M21.372 Foot drop, left foot; I70.245 Atherosclerosis of native arteries of left leg with ulceration of other part of foot; E66.01 Morbid (severe) obesity due to excess calories; M20.42 Other hammer toe(s) (acquired), left foot; Z91.118 Patient's noncompliance with dietary regimen for other reason; Z91.148 Patient's other noncompliance with medication regimen for other reason; J44.1 Chronic obstructive pulmonary disease with (acute) exacerbation
CPT/HCPCS: 87070; 87077; 87205

== ENCOUNTER → 2023-02-14 | Outpatient (CLI) | payer OTHER ==
[~2023-02-14] MED LIST changes: -GADOTERATE 0.5 MMOL/ML (CLARISCAN) 20 ML VIAL IV ONE
== END ==
LOC: WOUNDCARE 09:59
PROVIDERS: ATTEND Family Medicine
DX: L97.524 Non-pressure chronic ulcer of other part of left foot with necrosis of bone (principal); E11.621 Type 2 diabetes mellitus with foot ulcer; E11.65 Type 2 diabetes mellitus with hyperglycemia; M14.672 Charcot's joint, left ankle and foot; E11.40 Type 2 diabetes mellitus with diabetic neuropathy, unspecified; Z68.41 Body mass index [BMI] 40.0-44.9, adult; B95.0 Streptococcus, group A, as the cause of diseases classified elsewhere; M86.172 Other acute osteomyelitis, left ankle and foot; E11.52 Type 2 diabetes mellitus with diabetic peripheral angiopathy with gangrene; I96 Gangrene, not elsewhere classified
CPT/HCPCS: 11042; G0463

== ENCOUNTER → 2023-02-21 | Outpatient (CLI) | payer OTHER | LOC: WOUNDCARE 09:12 | PROVIDERS: ATTEND Family Medicine | DX: L97.524 Non-pressure chronic ulcer of other part of left foot with necrosis of bone (principal); E11.621 Type 2 diabetes mellitus with foot ulcer; E11.65 Type 2 diabetes mellitus with hyperglycemia; M14.672 Charcot's joint, left ankle and foot; E11.40 Type 2 diabetes mellitus with diabetic neuropathy, unspecified; Z68.41 Body mass index [BMI] 40.0-44.9, adult; E66.01 Morbid (severe) obesity due to excess calories; B95.0 Streptococcus, group A, as the cause of diseases classified elsewhere; M86.172 Other acute osteomyelitis, left ankle and foot; E11.52 Type 2 diabetes mellitus with diabetic peripheral angiopathy with gangrene; I96 Gangrene, not elsewhere classified | CPT/HCPCS: 11042; G0463 ==

== ENCOUNTER → 2023-02-28 | Outpatient (CLI) | payer OTHER | LOC: WOUNDCARE 09:34 | PROVIDERS: ATTEND Family Medicine | DX: L97.524 Non-pressure chronic ulcer of other part of left foot with necrosis of bone (principal); E11.621 Type 2 diabetes mellitus with foot ulcer; E11.65 Type 2 diabetes mellitus with hyperglycemia; M14.672 Charcot's joint, left ankle and foot; E11.40 Type 2 diabetes mellitus with diabetic neuropathy, unspecified; Z68.41 Body mass index [BMI] 40.0-44.9, adult; B95.5 Unspecified streptococcus as the cause of diseases classified elsewhere; M86.172 Other acute osteomyelitis, left ankle and foot; E11.52 Type 2 diabetes mellitus with diabetic peripheral angiopathy with gangrene; I96 Gangrene, not elsewhere classified | CPT/HCPCS: 11042; G0463 ==

== ENCOUNTER → 2023-03-05 | Outpatient (CLI) | payer OTHER | LOC: WOUNDCARE 08:58 | PROVIDERS: ATTEND Family Medicine | DX: E11.621 Type 2 diabetes mellitus with foot ulcer (principal); L97.524 Non-pressure chronic ulcer of other part of left foot with necrosis of bone; E11.65 Type 2 diabetes mellitus with hyperglycemia; M14.672 Charcot's joint, left ankle and foot; E11.40 Type 2 diabetes mellitus with diabetic neuropathy, unspecified; Z68.41 Body mass index [BMI] 40.0-44.9, adult; E66.01 Morbid (severe) obesity due to excess calories; B95.0 Streptococcus, group A, as the cause of diseases classified elsewhere; M86.172 Other acute osteomyelitis, left ankle and foot; E11.52 Type 2 diabetes mellitus with diabetic peripheral angiopathy with gangrene | CPT/HCPCS: 11042; A6207; G0463 ==

== ENCOUNTER → 2023-03-07 | Outpatient (CLI) | payer SELFPAY | LOC: WOUNDCARE 08:59 | PROVIDERS: ATTEND Family Medicine | DX: L97.524 Non-pressure chronic ulcer of other part of left foot with necrosis of bone (principal); E11.621 Type 2 diabetes mellitus with foot ulcer; E11.65 Type 2 diabetes mellitus with hyperglycemia; M14.672 Charcot's joint, left ankle and foot; E11.40 Type 2 diabetes mellitus with diabetic neuropathy, unspecified; Z68.41 Body mass index [BMI] 40.0-44.9, adult; E66.01 Morbid (severe) obesity due to excess calories; B95.0 Streptococcus, group A, as the cause of diseases classified elsewhere; M86.172 Other acute osteomyelitis, left ankle and foot; E11.52 Type 2 diabetes mellitus with diabetic peripheral angiopathy with gangrene; I96 Gangrene, not elsewhere classified | CPT/HCPCS: 29445; A6209; G0463 ==

== ENCOUNTER → 2023-03-14 | Outpatient (CLI) | payer OTHER | LOC: WOUNDCARE 09:27 | PROVIDERS: ATTEND Family Medicine | DX: I96 Gangrene, not elsewhere classified (principal); L97.524 Non-pressure chronic ulcer of other part of left foot with necrosis of bone; M86.172 Other acute osteomyelitis, left ankle and foot; E11.621 Type 2 diabetes mellitus with foot ulcer; E11.65 Type 2 diabetes mellitus with hyperglycemia; E11.40 Type 2 diabetes mellitus with diabetic neuropathy, unspecified; M14.672 Charcot's joint, left ankle and foot; B95.0 Streptococcus, group A, as the cause of diseases classified elsewhere; E66.01 Morbid (severe) obesity due to excess calories; Z68.41 Body mass index [BMI] 40.0-44.9, adult | CPT/HCPCS: 11042; A6209; G0463 ==

== ENCOUNTER → 2023-03-21 | Outpatient (CLI) | payer OTHER | LOC: WOUNDCARE 09:34 | PROVIDERS: ATTEND Family Medicine | DX: E11.621 Type 2 diabetes mellitus with foot ulcer (principal); L97.524 Non-pressure chronic ulcer of other part of left foot with necrosis of bone; E11.65 Type 2 diabetes mellitus with hyperglycemia; M14.672 Charcot's joint, left ankle and foot; E11.40 Type 2 diabetes mellitus with diabetic neuropathy, unspecified; Z68.41 Body mass index [BMI] 40.0-44.9, adult; E66.01 Morbid (severe) obesity due to excess calories; B95.0 Streptococcus, group A, as the cause of diseases classified elsewhere; E11.52 Type 2 diabetes mellitus with diabetic peripheral angiopathy with gangrene; M86.172 Other acute osteomyelitis, left ankle and foot | CPT/HCPCS: 11042; A6209; A6234; G0463 ==

== ENCOUNTER → 2023-03-28 | Outpatient (CLI) | payer OTHER | LOC: WOUNDCARE 09:28 | PROVIDERS: ATTEND Family Medicine | DX: L97.524 Non-pressure chronic ulcer of other part of left foot with necrosis of bone (principal); E11.621 Type 2 diabetes mellitus with foot ulcer; E11.65 Type 2 diabetes mellitus with hyperglycemia; M14.672 Charcot's joint, left ankle and foot; E11.40 Type 2 diabetes mellitus with diabetic neuropathy, unspecified; Z68.41 Body mass index [BMI] 40.0-44.9, adult; E66.01 Morbid (severe) obesity due to excess calories; B95.0 Streptococcus, group A, as the cause of diseases classified elsewhere; M86.172 Other acute osteomyelitis, left ankle and foot | CPT/HCPCS: 11042; A6209; G0463 ==

== ENCOUNTER → 2023-04-04 | Outpatient (CLI) | payer OTHER | LOC: WOUNDCARE 09:27 | PROVIDERS: ATTEND Family Medicine | DX: L97.524 Non-pressure chronic ulcer of other part of left foot with necrosis of bone (principal); E11.621 Type 2 diabetes mellitus with foot ulcer; E11.65 Type 2 diabetes mellitus with hyperglycemia; E11.610 Type 2 diabetes mellitus with diabetic neuropathic arthropathy; E11.40 Type 2 diabetes mellitus with diabetic neuropathy, unspecified; Z68.41 Body mass index [BMI] 40.0-44.9, adult; E66.01 Morbid (severe) obesity due to excess calories; B95.0 Streptococcus, group A, as the cause of diseases classified elsewhere; M86.172 Other acute osteomyelitis, left ankle and foot | CPT/HCPCS: 11042; A6209; A6234; G0463 ==

== ENCOUNTER → 2023-04-11 | Outpatient (CLI) | payer OTHER | LOC: WOUNDCARE 09:33 | PROVIDERS: ATTEND Family Medicine | DX: L97.524 Non-pressure chronic ulcer of other part of left foot with necrosis of bone (principal); E11.621 Type 2 diabetes mellitus with foot ulcer; E11.65 Type 2 diabetes mellitus with hyperglycemia; M14.672 Charcot's joint, left ankle and foot; E11.40 Type 2 diabetes mellitus with diabetic neuropathy, unspecified; E66.01 Morbid (severe) obesity due to excess calories; B95.0 Streptococcus, group A, as the cause of diseases classified elsewhere; M86.172 Other acute osteomyelitis, left ankle and foot; Z68.41 Body mass index [BMI] 40.0-44.9, adult | CPT/HCPCS: 11042; A6209; G0463 ==

== ENCOUNTER → 2023-04-18 | Outpatient (CLI) | payer OTHER | LOC: WOUNDCARE 09:31 | PROVIDERS: ATTEND Family Medicine | DX: E11.621 Type 2 diabetes mellitus with foot ulcer (principal); E11.65 Type 2 diabetes mellitus with hyperglycemia; E11.40 Type 2 diabetes mellitus with diabetic neuropathy, unspecified; E66.01 Morbid (severe) obesity due to excess calories; L97.524 Non-pressure chronic ulcer of other part of left foot with necrosis of bone; M14.672 Charcot's joint, left ankle and foot; B95.0 Streptococcus, group A, as the cause of diseases classified elsewhere; M86.172 Other acute osteomyelitis, left ankle and foot; Z68.41 Body mass index [BMI] 40.0-44.9, adult | CPT/HCPCS: 11042; A6021; A6209; G0463 ==

== ENCOUNTER → 2023-04-25 | Outpatient (CLI) | payer OTHER | LOC: WOUNDCARE 09:32 | PROVIDERS: ATTEND Family Medicine | DX: E11.621 Type 2 diabetes mellitus with foot ulcer (principal); E11.65 Type 2 diabetes mellitus with hyperglycemia; E11.40 Type 2 diabetes mellitus with diabetic neuropathy, unspecified; L97.524 Non-pressure chronic ulcer of other part of left foot with necrosis of bone; M14.672 Charcot's joint, left ankle and foot; E66.01 Morbid (severe) obesity due to excess calories; B95.0 Streptococcus, group A, as the cause of diseases classified elsewhere; M86.172 Other acute osteomyelitis, left ankle and foot; Z68.41 Body mass index [BMI] 40.0-44.9, adult | CPT/HCPCS: 11042; A6021; A6209; G0463 ==

== ENCOUNTER → 2023-04-29 | Outpatient (CLI) | payer SELFPAY | LOC: WOUNDCARE 09:36 | PROVIDERS: ATTEND Family Medicine | DX: E11.621 Type 2 diabetes mellitus with foot ulcer (principal); E11.65 Type 2 diabetes mellitus with hyperglycemia; E11.52 Type 2 diabetes mellitus with diabetic peripheral angiopathy with gangrene; E11.40 Type 2 diabetes mellitus with diabetic neuropathy, unspecified; E66.01 Morbid (severe) obesity due to excess calories; L97.524 Non-pressure chronic ulcer of other part of left foot with necrosis of bone; M14.672 Charcot's joint, left ankle and foot; B95.0 Streptococcus, group A, as the cause of diseases classified elsewhere; M86.172 Other acute osteomyelitis, left ankle and foot; Z68.41 Body mass index [BMI] 40.0-44.9, adult | CPT/HCPCS: 99213 ==

== ENCOUNTER → 2023-05-09 | Outpatient (CLI) | payer OTHER ==
[2023-05-09 10:20] LABS: BASOPHILS # (AUTO) 0.1 10^3/uL (0.0-0.1); BASOPHILS % (AUTO) 1 % (0-10); EOSINOPHILS # (AUTO) 0.2 10^3/uL (0.0-0.3); EOSINOPHILS % (AUTO) 2 % (0-10); HEMATOCRIT 53 % (40-54); HEMOGLOBIN 17.5 g/dL (13.3-17.7); LYMPHOCYTES # (AUTO) 1.8 10^3/uL (1.0-4.0); LYMPHOCYTES % (AUTO) 21 % (12-44); MEAN CORPUSCULAR HEMOGLOBIN 29 pg (25-34); MEAN CORPUSCULAR HGB CONC 33 g/dL (32-36); MEAN CORPUSCULAR VOLUME 89 fL (80-99); MONOCYTES # (AUTO) 0.6 10^3/uL (0.0-1.0); MONOCYTES % (AUTO) 7 % (0-12); NEUTROPHILS # (AUTO) 5.8 10^3/uL (1.8-7.8); NEUTROPHILS % (AUTO) 69 % (42-75); PLATELET COUNT 248 10^3/uL (130-400); WHITE BLOOD COUNT 8.5 10^3/uL (4.3-11.0)
[2023-05-09 10:28] LABS: ALBUMIN 4.1 GM/DL (3.2-4.5)
[2023-05-09 10:29] LABS: POTASSIUM 4.1 MMOL/L (3.6-5.0)
[2023-05-09 10:30] LABS: CALCIUM 10.1 MG/DL (8.5-10.1)
[2023-05-09 10:31] LABS: TOTAL PROTEIN 7.9 GM/DL (6.4-8.2)
[2023-05-09 10:33] LABS: BILIRUBIN,TOTAL 0.4 MG/DL (0.1-1.0)
[2023-05-09 10:35] LABS: CREATININE SERUM 0.86 MG/DL (0.60-1.30)
[2023-05-09 11:24] LABS: ERYTHROCYTE SEDIMENTATION RATE 2 MM/HR (0-30)
== END ==
LOC: WOUNDCARE 09:29
PROVIDERS: ATTEND Family Medicine
DX: L97.524 Non-pressure chronic ulcer of other part of left foot with necrosis of bone (principal); E11.621 Type 2 diabetes mellitus with foot ulcer; E11.65 Type 2 diabetes mellitus with hyperglycemia; M14.672 Charcot's joint, left ankle and foot; E11.40 Type 2 diabetes mellitus with diabetic neuropathy, unspecified; Z68.41 Body mass index [BMI] 40.0-44.9, adult; E66.01 Morbid (severe) obesity due to excess calories; B95.0 Streptococcus, group A, as the cause of diseases classified elsewhere; M86.172 Other acute osteomyelitis, left ankle and foot; E11.52 Type 2 diabetes mellitus with diabetic peripheral angiopathy with gangrene; I96 Gangrene, not elsewhere classified
CPT/HCPCS: 11042; 80053; 83036; 85025; 85652; 86141; G0463; 36415

== ENCOUNTER → 2023-05-23 | Outpatient (CLI) | payer OTHER | LOC: WOUNDCARE 09:31 | PROVIDERS: ATTEND Family Medicine | DX: L97.524 Non-pressure chronic ulcer of other part of left foot with necrosis of bone (principal); E11.621 Type 2 diabetes mellitus with foot ulcer; E11.65 Type 2 diabetes mellitus with hyperglycemia; M14.672 Charcot's joint, left ankle and foot; E11.40 Type 2 diabetes mellitus with diabetic neuropathy, unspecified; E66.01 Morbid (severe) obesity due to excess calories; B95.0 Streptococcus, group A, as the cause of diseases classified elsewhere; M86.172 Other acute osteomyelitis, left ankle and foot; J96.01 Acute respiratory failure with hypoxia; J44.1 Chronic obstructive pulmonary disease with (acute) exacerbation; Z68.41 Body mass index [BMI] 40.0-44.9, adult | CPT/HCPCS: 11042; G0463 ==

== ENCOUNTER 2023-06-03 09:32 | Inpatient (IN) | payer OTHER ==
[~2023-06-03] VITALS: Ht 177.8 cm; Wt 119.8 kg
[2023-06-03 09:59] LABS: BASOPHILS # (AUTO) 0.1 10^3/uL (0.0-0.1); BASOPHILS % (AUTO) 1 % (0-10); EOSINOPHILS # (AUTO) 0.2 10^3/uL (0.0-0.3); EOSINOPHILS % (AUTO) 2 % (0-10); HEMATOCRIT 54 % (40-54); HEMOGLOBIN 17.6 g/dL (13.3-17.7); LYMPHOCYTES # (AUTO) 1.6 10^3/uL (1.0-4.0); LYMPHOCYTES % (AUTO) 17 % (12-44); MEAN CORPUSCULAR HEMOGLOBIN 29 pg (25-34); MEAN CORPUSCULAR HGB CONC 33 g/dL (32-36); MEAN CORPUSCULAR VOLUME 90 fL (80-99); MEAN PLATELET VOLUME 9.1 fL (9.0-12.2); MONOCYTES # (AUTO) 0.8 10^3/uL (0.0-1.0); MONOCYTES % (AUTO) 9 % (0-12); NEUTROPHILS # (AUTO) 6.9 10^3/uL (1.8-7.8); NEUTROPHILS % (AUTO) 71 % (42-75); PLATELET COUNT 326 10^3/uL (130-400); WHITE BLOOD COUNT 9.8 10^3/uL (4.3-11.0)
[2023-06-03] MEDS ORDERED: NS 100 ML (IVPB) BAG IV ONE (10:00)
[2023-06-03] MEDS ORDERED: HOLD METFORMIN - RECEIVED CONTRAST 20 ML VIAL IV SCH (10:00)
[2023-06-03] MEDS ORDERED: IOHEXOL 350 MG/ML 100 ML (OMNIPAQUE 350) VIAL IV ONE (10:00)
[2023-06-03 10:06] LABS: ALBUMIN 4.1 GM/DL (3.2-4.5); CHLORIDE 100 MMOL/L (98-107); POTASSIUM 4.2 MMOL/L (3.6-5.0); SODIUM 138 MMOL/L (135-145)
[2023-06-03 10:07] LABS: CALCIUM 10.1 MG/DL (8.5-10.1)
[2023-06-03 10:08] LABS: GLUCOSE 123 MG/DL (70-105); PROTHROMBIN TIME PATIENT 13.2 SEC (12.2-14.7)
[2023-06-03 10:09] LABS: TOTAL PROTEIN 8.5 GM/DL (6.4-8.2)
[2023-06-03 10:10] LABS: BILIRUBIN,TOTAL 0.4 MG/DL (0.1-1.0); CARBON DIOXIDE 25 MMOL/L (21-32)
[2023-06-03 10:12] LABS: ALKALINE PHOSPHATASE 120 U/L (40-136); CREATININE SERUM 0.86 MG/DL (0.60-1.30); GFR ESTIMATED 105
[2023-06-03 10:13] LABS: BUN/CREATININE RATIO 13
[2023-06-03 10:15] LABS: ALANINE AMINOTRANSFERASE 14 U/L (0-55); MAGNESIUM 2.2 MG/DL (1.6-2.4)
[2023-06-03] MEDS ORDERED: RT-Ipratropium/Albuterol NEB 3 ML VIAL INH ONE (10:45)
[2023-06-03 11:03] LABS: CLARITY,URINE CLEAR; COLOR,URINE YELLOW
[2023-06-03 11:04] LABS: GLUCOSE, URINE (UA) 4+ (NEGATIVE); KETONES,URINE 2+ (NEGATIVE); NITRITE,URINE NEGATIVE (NEGATIVE); PROTEIN,URINE TRACE (NEGATIVE)
[2023-06-03 11:05] LABS: BACTERIA,URINE NEGATIVE /HPF; BILIRUBIN,URINE 2+ (NEGATIVE); LEUKOCYTE ESTERASE ,URINE NEGATIVE (NEGATIVE); SQUAMOUS EPITHELIAL CELL,UR RARE /HPF; WBC,URINE RARE /HPF
--- NOTE | 2023-06-03 11:15 | Diagnostic Imaging Report ---
TECHNIQUE: CTA of the chest was performed with contrast bolus timing optimized for evaluation of the pulmonary arteries. 3D reformats were obtained and reviewed. Dose-reduction techniques are utilized. REASON FOR EXAM: Hypoxia. Shortness of breath. Chest pain. COMPARISON: Chest radiograph performed the same date. 04/29/2021. FINDINGS: This helical CT pulmonary angiogram is diagnostic to the subsegmental level branches of the pulmonary artery and demonstrates no pulmonary emboli. The heart and great vessels are unremarkable. There is no pericardial effusion. Mildly prominent mediastinal lymph nodes are present. Bronchiectasis and volume loss is visualized in the right lower lobe, stable compared to the prior exam. Scattered hazy opacities are seen throughout both lungs. Focal areas of nodular opacity are also seen measuring up to 0.8 cm. No pleural effusion or pneumothorax. No central endobronchial obstructing lesion. Osseous structures appear normal. Limited views of the upper abdomen are unremarkable. IMPRESSION: 1. No acute pulmonary embolus. 2. Hazy and nodular opacities scattered throughout the lungs, suggestive of an inflammatory/infectious process. However, given the nodularity, follow-up should be performed in one to two months with chest CT to ensure resolution. 3. Stable bronchiectasis and volume loss in the right lower lobe. 4. Mildly prominent mediastinal lymph nodes, likely reactive. Dictated by: Dictated on workstation # [id number]
[2023-06-03] MEDS ORDERED: AZITHROMYCIN INJECTION 500 MG in NS (IVPB) 250 ML 250 ML IV STA (11:47)
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
[2023-06-03] MEDS ORDERED: methylPREDNISolone 40 MG/ML (Solu-MEDROL) VIAL IV ONE (12:00)
[2023-06-03] MEDS ORDERED: NS IV 1000 ML 1,000 ML IV SCH (12:00)
[2023-06-03] MEDS ORDERED: PIPERACILLIN SODIUM/TAZOBACTAM 4.5 GM in NS (IVPB) 100 ML 100 ML IV ONE (12:00)
[2023-06-03] MEDS ORDERED: NS IV 500 ML 500 ML IV PRN (13:30)
[2023-06-03] MEDS ORDERED: MILK OF MAGNESIA 400 MG/5 ML 30 ML UDC PO PRN (13:30)
[2023-06-03] MEDS ORDERED: ANTACID SUSP 30 ML UDC (MYLANTA) PO PRN (13:30)
[2023-06-03] MEDS ORDERED: PHARMACY TO DOSE IV SCH (13:30)
[2023-06-03] MEDS ORDERED: BISACODYL 10 MG SUPPOSITORY PR PRN (13:30)
[2023-06-03] MEDS ORDERED: HYDROmorphone INJECTION 2 MG/ML VIAL IV PRN (13:30)
[2023-06-03] MEDS ORDERED: LACTULOSE SYRUP 10GM/15ML 30ML UDC PO PRN (13:30)
[2023-06-03] MEDS ORDERED: ACETAMINOPHEN 325 MG TABLET PO PRN (13:30)
[2023-06-03] MEDS ORDERED: guaiFENesin/CODEINE 10ML UDC PO PRN (13:30)
[2023-06-03] MEDS ORDERED: diphenhydrAMINE INJ 50 MG/ML VIAL IVP PRN (13:30)
[2023-06-03] MEDS ORDERED: ONDANSETRON 4 MG (ZOFRAN) ORAL DISSOLVE TAB PO PRN (13:30)
[2023-06-03] MEDS ORDERED: ONDANSETRON 4 MG/2 ML (SDV) Z0FRAN IV PRN (13:30)
[2023-06-03] MEDS ORDERED: ENOXAPARIN 40 MG/0.4 ML SYRINGE SC SCH (13:30)
[2023-06-03] MEDS ORDERED: MELATONIN 3 MG TABLET PO PRN (13:30)
[2023-06-03] MEDS ORDERED: cloNIDine 0.1 MG TABLET PO PRN (13:30)
[2023-06-03] MEDS ORDERED: BENZONATATE 100 MG CAPSULE PO PRN (13:30)
[2023-06-03] MEDS ORDERED: CALCIUM CARBONATE 500 MG CHEW TABLET PO PRN (13:30)
[2023-06-03] MEDS ORDERED: LORazepam INJ 2 MG/ML (ATIVAN) VIAL IVP PRN (13:30)
[2023-06-03] MEDS ORDERED: diphenhydrAMINE 25 MG TABLET PO PRN (13:30)
[2023-06-03] MEDS ORDERED: polyethylene glycoL POWDER 17 GM (MIRALAX) PACK PO PRN (13:30)
[2023-06-03] MEDS ORDERED: LORazepam 0.5 MG (ATIVAN) TABLET PO PRN (13:30)
[2023-06-03] MEDS: NS IV 1000 ML 1,000 ML IV SCH (14:08)
[2023-06-03] MEDS: oxyCODONE IMMEDIATE RELEASE 5 MG TABLET PO PRN ×2 (14:11→19:40)
[2023-06-03] MEDS ORDERED: VANCOMYCIN 2000 MG/NS 500 ML IVPB IV NR ×2 (15:00)
[2023-06-03] MEDS ORDERED: SILD50TA48 PO (15:11)
[2023-06-03] MEDS ORDERED: DOXY100C5 PO (15:11)
[2023-06-03] MEDS ORDERED: DULO30CA49 PO ×2 (15:12)
[2023-06-03] MEDS ORDERED: GLIM1TAB4 PO (15:13)
[2023-06-03] MEDS ORDERED: ARIP10TA10 PO (15:14)
[2023-06-03] MEDS ORDERED: DAPA10TA PO (15:14)
[2023-06-03] MEDS ORDERED: OXCA600T10 PO (15:14)
[2023-06-03] MEDS ORDERED: IBUP-2473 PO (15:15)
[2023-06-03] MEDS ORDERED: SITA100T12 PO (15:15)
[2023-06-03 15:18] VITALS: BP 130/80
--- NOTE | 2023-06-03 15:21 | History & Physical-Hospitalist ---
EDEL,[facility] 06/03/23 1521: History of Present Illness HPI/Chief Complaint CC: Hypoxia HPI: 52 y/o male with a history of smoking, poorly controlled diabetes, COPD, and repeated pulmonary infections came in with shortness of breath, hypoxia, and chest pain. Cough had persisted for 2 weeks before he arrived and he was wheezing. His O2 was at 86% on arrival and is now back at 93% on nasal cannula. While at home he does not use supplemental oxygen and reports not being hypoxic. He did have a significant pulmonary infection with actinomyces in 2018 for which he was treated with azithromycin for 6 months. Date Seen 06/03/23 Time Seen by a Provider: 14:30 Attending Physician Harley Oneill DO PCP Admitting Physician: Ciera Trent DO Attending Physician: Ciera Trent DO Referring Physician Date of Admission Jun 03, 2023 at 12:49 Home Medications & Allergies Home Medications Reviewed patient Home Medication Reconciliation performed by pharmacy medication reconciliations sales technician home theater and/or nursing. Patients Allergies have been reviewed. Allergies Allergies Coded Allergies gabapentin (Verified Allergy, Unknown, 05/24/19) Past Knchfvs-Ijcxaq-Tytyjq Hx Patient Social History Tobacco Use?: No Smoking Status: Former Smoker Smokeless type used: Chew Smokeless Tobacco Frequency: Current Everyday User Use of E-Cig and/or Vaping dev: No Substance use?: Yes Substance type: Marijuana Alcohol Use?: Yes Alcohol Frequency: Rarely Pt feels they are or have been: No Immunizations Up To Date First/Initial COVID19 Vaccinat: JANUARY 2021 Second COVID19 Vaccination Ramon: FEBRUARY 2021 Tetanus Booster (TDap): Unknown Seasonal Allergies Seasonal Allergies: No Current Status Advance Directives: No Communicates: Verbally Primary Language: Georgian Preferred Spoken Language: Georgian Is interpretation needed?: No Sensory deficits: Vision impairment Implanted or Applied Medical D: Orthopedic hardware Past Medical History Surgeries: Orthopedic Asthma, Pneumonia, Chronic Bronchitis, Sleep Apnea, COPD Currently Using CPAP: No Currently Using BIPAP: No Hypertension Arthritis, Foot Drop, Fractures Diabetes, Insulin dep (Poorly controlled) Anxiety, Depression Blood Disorders: No Family Medical History Cardiovascular disease 19 FATHER FH: cancer 19 MOTHER Diabetes Review of Systems Constitutional: no symptoms reported Respiratory: wheezing Physical Exam Physical Exam Vital Signs Vital Signs - First Documented 06/03/23 09:34 Temp 36.8 Pulse 108 B/P (MAP) 118/82 (94) Pulse Ox 86 Capillary Refill : Height, Weight, BMI Height: 5'10.00" Weight: 303lbs. 1.0oz. 137.755745pt; 37.86 BMI Method:Stated General Appearance: No Apparent Distress, Obese Respiratory: No Accessory Muscle Use, No Respiratory Distress, Wheezing Results Results/Procedures Labs Laboratory Tests 06/03/23 09:45 Patient resulted labs reviewed. Assessment/Plan Admission Diagnosis hypoxia Admission Status: Inpatient Order (span 2 midnights) Reason for Inpatient Admission: Acute and chronic respiratory distress poorly controlled diabetes Assessment and Plan Assessment: COPD exacerbation pneumonia previous smoker Plan: Monitor O2 and vitals continue Zosyn administration MILEYCIERA DO 06/04/23 0555: Past Zyqbpai-Svjyca-Kbytcn Hx Family Medical History Cardiovascular disease 19 FATHER FH: cancer 19 MOTHER Physical Exam Physical Exam General Appearance: Anxious, Chronically ill, Mild Distress Eyes: Right Eye Normal Inspection, Right Eye PERRL HEENT: PERRL/EOMI, Normal ENT Inspection, Pharynx Normal, Moist Mucous Membranes Neck: Full Range of Motion, Normal Inspection, Non Tender Respiratory: Chest Non Tender, No Respiratory Distress, Accessory Muscle Use, Crackles, Decreased Breath Sounds, Wheezing Cardiovascular: Regular Rate, Rhythm, No Edema, No Gallop, No JVD, No Murmur, Normal Peripheral Pulses Gastrointestinal: Normal Bowel Sounds, No Organomegaly, No Pulsatile Mass, Non Tender, Soft Back: Normal Inspection, No CVA Tenderness, No Vertebral Tenderness Extremity: Normal Capillary Refill, Normal Inspection, Normal Range of Motion, Non Tender, No Calf Tenderness, No Pedal Edema Neurologic/Psychiatric: Alert, Oriented x3, No Motor/Sensory Deficits, Normal Mood/Affect Skin: Normal Color, Warm/Dry Lymphatic: No Adenopathy Assessment/Plan Admission Diagnosis Assessment: Acute on chronic respiratory failure Pneumonia suspect atypical type Former smoker Diabetes [id number] Noncompliance refused repeat blood cultures and ABG Plan: ICU admission Oxygen IV antibiotics Admission Status: Inpatient Order (span 2 midnights) Reason for Inpatient Admission: resp failure Supervisory-Addendum Brief Verification & Attestation Participated in pt care: history, MDM, physical Personally performed: exam, history, MDM, supervision of care Care discussed with: Medical Student Procedures: n/a Results interpretation: Verified all documentation Verification and Attestation of Medical Student E/M Service A medical student performed and documented this service in my presence. I reviewed and verified all information documented by the medical student and made modifications to such information, when appropriate. I personally performed the physical exam and medical decision making. Ciera Trent, Jun 04, 2023,05:53 SOARES Jun 03, 2023 15:21 CIERA TRENT DO Jun 04, 2023 05:55
[2023-06-03] MEDS ORDERED: RT-Ipratropium/Albuterol NEB 3 ML VIAL INH PRN (15:45)
[2023-06-03] MEDS: inSUlin ASPART 1 UNIT/0.01 ML (PER UNIT) SC SCH ×2 (17:21→20:45)
[2023-06-03] MEDS: PIPERACILLIN SODIUM/TAZOBACTAM 4.5 GM in NS (IVPB) 100 ML 100 ML IV SCH (17:33)
--- NOTE | 2023-06-03 17:47 | Tele-ICU Progress Note ---
Subjective Date Seen by a Provider: Jun 03, 2023 Time Seen by a Provider: 17:47 Subjective/Events-last exam (Tele-ICU Physician , consultation as per request of PCP Service provided via interactive audio and video telecommunications E-CARE system to a patient admitted to ICU bed in [facility]. Available chart/ vitals / labs / Images reviewed H&P is from ER notes Patient's information available about PMH, Shx, Fhx allergy reviewed inEMR. ROS as per chart and RN report Now in ICU, hemodynamically stable Video assessment done using teleICU camera, rest of exam as per RN Discussed with RN. Hospital course: (06/03) 52y/o M admitted with hypoxia, pneumonia. A/P suspected PNA ( RLL segmental infiltrate is chronic based on CT and 2020) - cont ABX (at risk for atypical gibeen his history - will try to obtain sputum cx ) Dyspnea, wheezing ( no PE on CT ) - suspected AECOPD - cont steroids and nebs Hypoxia - 4 l - see above SOLOMON - noncompliant with CPAP Lines : , (Central Line Necessity Reviewed) Berrios: OG: Nutrition: Analgesia: Anxiety/ delirium VTE Prophylaxis: malcom Stress Ulcer Prophylaxis: Plans in collaboration with bedside consultants and IM MDs. Discussed with RN to reach out if any questions or concerns A total of 20 minutes of critical care time was devoted to this patient today, required to treat and/or prevent further deterioration of critical care condition ( as above ) . I am remotely monitoring this patient from another state. I am unable to do the bedside exam, and history/physical and pertinent information is taken from other notes in the computer and bedside staff. . Sepsis Event Evaluation Height, Weight, BMI Height: 5'10.00" Weight: 303lbs. 1.0oz. 137.223885jz; 37.86 BMI Method:Stated Focused Exam Lactate Level 06/03/23 09:45: Lactic Acid Level 1.15 Exam Exam Patient acknowledged, consented, and participated in this virtual visit which was conducted using real time audio/video Vital Signs Date Time Temp Pulse Resp B/P (MAP) Pulse Ox O2 Delivery O2 Flow Rate FiO2 06/03/23 17:33 Nasal Cannula 4.00 06/03/23 17:00 98 15 126/86 (99) 87 Room Air 06/03/23 16:00 103 18 123/85 (98) 94 Room Air 06/03/23 15:50 90 Room Air 06/03/23 15:30 36.4 Nasal Cannula 4.00 06/03/23 15:18 36.8 105 93 06/03/23 15:00 105 12 93 Room Air 06/03/23 14:00 102 12 130/80 (100) 89 Room Air 06/03/23 13:44 Room Air 06/03/23 13:00 101 111/86 93 Nasal Cannula 4.00 06/03/23 13:00 98 13 135/88 (104) 95 Room Air 06/03/23 12:55 92 Room Air 06/03/23 11:28 94 Nasal Cannula 3.00 06/03/23 09:34 36.8 108 118/82 (94) 86 Room Air 06/03/23 09:34 Nasal Cannula 3.00 06/03/23 09:34 Nasal Cannula 3.00 Height & Weight Height: 5'10.00" Weight: 303lbs. 1.0oz. 137.761476zf; 37.86 BMI Method:Stated General Appearance: No Apparent Distress, Obese HEENT: PERRL/EOMI, Normal ENT Inspection Neck: Normal Inspection; No JVD Respiratory: No Accessory Muscle Use, No Respiratory Distress, Wheezing Cardiovascular: No Edema, No Murmur, Tachycardia (Regular) Extremity: Normal Inspection, Non Tender, No Pedal Edema Neurologic/Psychiatric: Alert, Oriented x3, No Motor/Sensory Deficits, Normal Mood/Affect Results Lab Laboratory Tests 06/03/23 09:45 Assessment/Plan Assessment/Plan 1 HERNAN RICE MD Jun 03, 2023 17:47
[2023-06-03] MEDS: RT-Ipratropium/Albuterol NEB 3 ML VIAL INH SCH ×2 (19:10→21:26)
[2023-06-03] MEDS: FLUTICASONE/VILANTEROL 100/25 MCG (7 DOSES) IH SCH (19:41)
[2023-06-03] MEDS: SENNOSIDES 8.6 MG (SENOKOT) TAB PO SCH (20:44)
[2023-06-03] MEDS: DOCUSATE SODIUM 100 MG CAPSULE PO SCH (20:44)
[2023-06-03] MEDS: dexAMETHasone INJ 4 MG/ML SDV IV SCH (20:45)
[2023-06-03] MEDS: inSUlin DETERMIR 1 UNIT/0.01 ML (CHARGE PER UNIT) SQ SCH (20:45)
[2023-06-03] MEDS ORDERED: MONTELUKAST 10 MG (SINGULAIR) TAB PO SCH (21:00)
[2023-06-03] MEDS ORDERED: ADVAIR HFA 115/21 MCG INHALER 8 GM IH SCH (21:00)
[2023-06-04] MEDS ORDERED: VANCOMYCIN 1500MG/300ML PREMIX IV SCH
[2023-06-04] MEDS: PIPERACILLIN SODIUM/TAZOBACTAM 4.5 GM in NS (IVPB) 100 ML 100 ML IV SCH (02:07)
[2023-06-04] MEDS: oxyCODONE IMMEDIATE RELEASE 5 MG TABLET PO PRN (02:07)
[2023-06-04] MEDS: RT-Ipratropium/Albuterol NEB 3 ML VIAL INH SCH ×2 (02:31→06:57)
[2023-06-04 05:05] LABS: BASOPHILS % (AUTO) 0 % (0-10); EOSINOPHILS % (AUTO) 0 % (0-10); HEMATOCRIT 50 % (40-54); HEMOGLOBIN 16.1 g/dL (13.3-17.7); LYMPHOCYTES # (AUTO) 1.1 10^3/uL (1.0-4.0); LYMPHOCYTES % (AUTO) 10 % (12-44); MEAN CORPUSCULAR HEMOGLOBIN 29 pg (25-34); MEAN CORPUSCULAR HGB CONC 32 g/dL (32-36); MEAN CORPUSCULAR VOLUME 90 fL (80-99); MEAN PLATELET VOLUME 9.5 fL (9.0-12.2); MONOCYTES # (AUTO) 0.3 10^3/uL (0.0-1.0); MONOCYTES % (AUTO) 3 % (0-12); NEUTROPHILS # (AUTO) 9.6 10^3/uL (1.8-7.8); NEUTROPHILS % (AUTO) 86 % (42-75); PLATELET COUNT 317 10^3/uL (130-400); WHITE BLOOD COUNT 11.1 10^3/uL (4.3-11.0)
[2023-06-04 05:42] LABS: ALBUMIN 3.8 GM/DL (3.2-4.5); BILIRUBIN,TOTAL 0.3 MG/DL (0.1-1.0); CALCIUM 9.6 MG/DL (8.5-10.1); CREATININE SERUM 0.81 MG/DL (0.60-1.30); PHOSPHORUS 3.9 MG/DL (2.3-4.7); POTASSIUM 4.6 MMOL/L (3.6-5.0); TOTAL PROTEIN 7.7 GM/DL (6.4-8.2)
[2023-06-04 05:47] LABS: LYMPHOCYTES % (MANUAL) 10 %; MONOCYTES % (MANUAL) 2 %; NEUTROPHILS % (MANUAL) 88 %
[2023-06-04 05:48] LABS: RBC MORPH NORMAL
[2023-06-04] MEDS ORDERED: POTASSIUM CHLORIDE 20 MEQ TABLET PO SCH (06:00)
[2023-06-04] MEDS ORDERED: MAGNESIUM 1 GM/100 ML IVPB 100 ML IV SCH (06:00)
[2023-06-04] MEDS ORDERED: POTASSIUM CL 10MEQ/50ML IVPB 50 ML IV SCH (06:00)
[2023-06-04] MEDS: inSUlin ASPART 1 UNIT/0.01 ML (PER UNIT) SC SCH (06:05)
--- NOTE | 2023-06-04 06:17 | Diagnostic Imaging Report ---
INDICATION: Pneumonia COMPARISONS: 06/03/2023 FINDINGS: Single portable chest shows normal heart, pleura, and diaphragms. There is some minimal right medial basilar atelectatic type infiltrates but no confluent consolidations. There is mild central venous prominence. Film is slightly underpenetrated. Soft tissues and bony thorax are unremarkable. IMPRESSION: Questionable minimal right medial basilar infiltrates but no confluent consolidations. Dictated by: Dictated on workstation # [id number]
[2023-06-04] MEDS: FLUTICASONE/VILANTEROL 100/25 MCG (7 DOSES) IH SCH (06:58)
[2023-06-04] MEDS: inSUlin DETERMIR 1 UNIT/0.01 ML (CHARGE PER UNIT) SQ SCH (08:35)
[2023-06-04] MEDS: NS IV 1000 ML 1,000 ML IV SCH (08:35)
[2023-06-04] MEDS: dexAMETHasone INJ 4 MG/ML SDV IV SCH (08:35)
[2023-06-04] MEDS: DOCUSATE SODIUM 100 MG CAPSULE PO SCH (09:00)
[2023-06-04] MEDS: SENNOSIDES 8.6 MG (SENOKOT) TAB PO SCH (09:00)
[2023-06-04] MEDS ORDERED: AZITHROMYCIN INJECTION 250 MG in NS (IVPB) 250 ML 250 ML IV SCH (09:00)
[2023-06-04] MEDS ORDERED: PRD20T PO (09:34)
[2023-06-04] MEDS ORDERED: AZIT250T12 PO (09:34)
[2023-06-04] MEDS ORDERED: CEFD300C3 PO (09:34)
[2023-06-04] MEDS ORDERED: MONT-40 PO (09:34)
--- NOTE | 2023-06-04 09:35 | Discharge Summary ---
Discharge Summary Hospital Course Was the Problem List Reviewed?: Yes Problems/Dx: (1) COPD exacerbation Status: Acute (2) Pneumonia Qualifiers: Qualified Codes: J18.9 - Pneumonia, unspecified organism (3) Hypoxia Status: Acute Hospital Course Date of Admission: Jun 03, 2023 at 12:49 Admission Diagnosis : Family Physician/Provider: Harley Oneill DO Date of Discharge: 06/04/23 Discharge Diagnosis: [ ] Hospital Course: Hospital course: 52 y/o male with a history of smoking, poorly controlled diabetes, COPD, and repeated pulmonary infections presented to the ED with complaints of shortness of breath, chest pain and hypoxia. 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 He has been coughing for the 2 weeks prior to his visit and wheezing is heard in both lungs. He said he has not felt hypoxic before this. His O2 was at 86% when he arrived and francisco back to normal on nasal cannula and then room air. Imaging showed possible atypical pneumonia and a CT angiogram of the chest did not suggest a pulmonary embolus or structural lung problem. He was noted to have scattered hazy nodular opacities throughout his lungs. He was admitted with acute on chronic respiratory failure and was being treated with azithromycin, vancomycin, and zosyn during this stay, but patient was noted to be non-compliant with repeat blood cultures and ABG. Since his admission he has felt progressively better, had a good appetite, and good bowel movements , but the wheezing is persistent on exam. 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 SOARES Labs and Pending Lab Test: Laboratory Tests 06/03/23 09:45: White Blood Count 9.8, Red Blood Count 5.99H, Hemoglobin 17.6, Hematocrit 54, Mean Corpuscular Volume 90, Mean Corpuscular Hemoglobin 29, Mean Corpuscular Hemoglobin Concent 33, Red Cell Distribution Width 14.1, Platelet Count 326, Mean Platelet Volume 9.1, Immature Granulocyte % (Auto) 1, Neutrophils (%) (Auto) 71, Lymphocytes (%) (Auto) 17, Monocytes (%) (Auto) 9, Eosinophils (%) (Auto) 2, Basophils (%) (Auto) 1, Neutrophils # (Auto) 6.9, Lymphocytes # (Auto) 1.6, Monocytes # (Auto) 0.8, Eosinophils # (Auto) 0.2, Basophils # (Auto) 0.1, Immature Granulocyte # (Auto) 0.1, Prothrombin Time 13.2, INR Comment 1.0, Activated Partial Thromboplast Time 29, Sodium Level 138, Potassium Level 4.2, Chloride Level 100, Carbon Dioxide Level 25, Anion Gap 13, Blood Urea Nitrogen 11, Creatinine 0.86, Estimat Glomerular Filtration Rate 105, BUN/Creatinine Ratio 13, Glucose Level 123H, Lactic Acid Level 1.15, Calcium Level 10.1, Corrected Calcium 10.0, Magnesium Level 2.2, Total Bilirubin 0.4, Aspartate Amino Transf (AST/SGOT) 17, Alanine Aminotransferase (ALT/SGPT) 14, Alkaline Phosphatase 120, Myoglobin 51.6, Troponin I < 0.028, C-Reactive Protein High Sensitivity 4.04H, B-Type Natriuretic Peptide 16.7, Total Protein 8.5H, Albumin 4.1 06/03/23 09:48: Influenza Type A (RT-PCR) Not Detected, Influenza Type B (RT-PCR) Not Detected, SARS-CoV-2 RNA (RT-PCR) Not Detected 06/03/23 10:40: Urine Color YELLOW, Urine Clarity CLEAR, Urine pH 5.0, Urine Specific [place] 1.025H, Urine Protein TRACEH, Urine Glucose (UA) 4+H, Urine Ketones 2+H, Urine Nitrite NEGATIVE, Urine Bilirubin 2+H, Urine Urobilinogen NORMAL, Urine Leukocyte Esterase NEGATIVE, Urine RBC (Auto) NEGATIVE, Urine RBC NONE, Urine WBC RARE, Urine Squamous Epithelial Cells RARE, Urine Crystals NONE, Urine Bacteria NEGATIVE, Urine Casts NONE, Urine Mucus SMALLH, Urine Culture Indicated CULTURE PENDING 06/03/23 12:12: Glucometer 113H 06/03/23 15:59: Glucometer 226H 06/03/23 20:19: Glucometer 241H 06/04/23 04:03: White Blood Count 11.1H, Red Blood Count 5.55H, Hemoglobin 16.1, Hematocrit 50, Mean Corpuscular Volume 90, Mean Corpuscular Hemoglobin 29, Mean Corpuscular Hemoglobin Concent 32, Red Cell Distribution Width 14.0, Platelet Count 317, Mean Platelet Volume 9.5, Immature Granulocyte % (Auto) 1, Neutrophils (%) (Auto) 86H, Lymphocytes (%) (Auto) 10L, Monocytes (%) (Auto) 3, Eosinophils (%) (Auto) 0, Basophils (%) (Auto) 0, Neutrophils # (Auto) 9.6H, Lymphocytes # (Auto) 1.1, Monocytes # (Auto) 0.3, Eosinophils # (Auto) 0.0, Basophils # (Auto) 0.0, Immature Granulocyte # (Auto) 0.1, Neutrophils % (Manual) 88, Lymphocytes % (Manual) 10, Monocytes % (Manual) 2, Blood Morphology Comment NORMAL, Sodium Level 137, Potassium Level 4.6, Chloride Level 102, Carbon Dioxide Level 24, Anion Gap 11, Blood Urea Nitrogen 14, Creatinine 0.81, Estimat Glomerular Filtration Rate 107, BUN/Creatinine Ratio 17, Glucose Level 153H, Calcium Level 9.6, Corrected Calcium 9.8, Phosphorus Level 3.9, Magnesium Level 2.0, Total Bilirubin 0.3, Aspartate Amino Transf (AST/SGOT) 13, Alanine Aminotransferase (ALT/SGPT) 13, Alkaline Phosphatase 101, Total Protein 7.7, Albumin 3.8, Triglycerides Level 86, Cholesterol Level 213H, LDL Cholesterol Direct 178H, VLDL Cholesterol 17, HDL Cholesterol 45 Microbiology 06/03/23 MRSA Screen - Final, Complete MRSA not isolated Home Meds Active Cefdinir 300 Mg Capsule 300 Mg PO BID Azithromycin 250 Mg Tablet 250 Mg PO DAILY Prednisone 20 Mg Tab 20 Mg PO DAILY Take 3 tabs(60mg)daily,decrease by 1/2 tab(10mg)every other day. Montelukast Sodium 10 Mg Tablet 10 Mg PO HS Reported Ibuprofen 200 Mg Tablet 200-400 Mg PO Q8H PRN TAKES 1 TO 2 (200MG) TABS Januvia (Sitagliptin Phosphate) 100 Mg Tablet 100 Mg PO DAILY Farxiga (Dapagliflozin Propanediol) 10 Mg Tablet 10 Mg PO DAILY Oxcarbazepine 600 Mg Tablet 600 Mg PO DAILY Abilify (Aripiprazole) 10 Mg Tablet 10 Mg PO DAILY Glimepiride 1 Mg Tablet 1 Mg PO DAILY Duloxetine HCl 30 Mg Capsule.dr 60 Mg PO HS TAKES 2 (30MG) CAPS Duloxetine HCl 30 Mg Capsule.dr 30 Mg PO DAILY Doxycycline Hyclate 100 Mg Capsule 100 Mg PO BID FILLED 05-25-2023 # DAY SUPPLY Sildenafil Citrate 50 Mg Tablet 50 Mg PO DAILY PRN Assessment/Pt Instructions PCP 1 week Discharge Planning: <30 minutes discharge planning Discharge Physical Examination Vital Signs Vital Signs Date Time Temp Pulse Resp B/P (MAP) Pulse Ox O2 Delivery O2 Flow Rate FiO2 06/04/23 09:00 89 8 145/87 (106) 90 Room Air 06/04/23 06:59 0.00 06/03/23 20:03 36.1 General Appearance: No Apparent Distress, WD/WN Respiratory: Lungs Clear, Normal Breath Sounds Neurologic/Psychiatric: Alert, Oriented x3, No Motor/Sensory Deficits, Normal Mood/Affect Allergies: Coded Allergies: gabapentin (Verified Allergy, Unknown, 05/24/19) Discharge Summary Date of Admission Jun 03, 2023 at 12:49 Date of Discharge Discharge Date: Jun 04, 2023 Admission Diagnosis Assessment: Acute on chronic respiratory failure Pneumonia suspect atypical type Former smoker Diabetes [id number] Noncompliance refused repeat blood cultures and ABG Plan: ICU admission Oxygen IV antibiotics HALIMA TRENT DO Jun 04, 2023 09:35
[2023-06-04 10:00] VITALS: BP 145/87
[2023-06-04] MEDS ORDERED: TROUGH ORDER-PHARMACY XX ONE (11:00)
[2023-06-04] MEDS ORDERED: PIPERACILLIN SODIUM/TAZOBACTAM 4.5 GM in NS (IVPB) 100 ML 100 ML IV ONE (11:58)
--- NOTE | 2023-06-04 12:12 | Progress Note ---
SOARES 06/04/23 1212: Progress Note Hospital course: 52 y/o male with a history of smoking, poorly controlled diabetes, COPD, and repeated pulmonary infections presented to the ED with complaints of shortness of breath, chest pain and hypoxia. 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 He has been coughing for the 2 weeks prior to his visit and wheezing is heard in both lungs. He said he has not felt hypoxic before this. His O2 was at 86% when he arrived and francisco back to normal on nasal cannula and then room air. Imaging showed possible atypical pneumonia and a CT angiogram of the chest did not suggest a pulmonary embolus or structural lung problem. He was noted to have scattered hazy nodular opacities throughout his lungs. He was admitted with acute on chronic respiratory failure and was being treated with azithromycin, vancomycin, and zosyn during this stay, but patient was noted to be non-compliant with repeat blood cultures and ABG. Since his admission he has felt progressively better, had a good appetite, and good bowel movements , but the wheezing is persistent on exam. 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 CIERA TRENT DO 06/05/23 0524: Supervisory-Addendum Brief Verification & Attestation Participated in pt care: history, MDM, physical Personally performed: exam, history, MDM, supervision of care Care discussed with: Medical Student Procedures: n/a Results interpretation: Verified all documentation Verification and Attestation of Medical Student E/M Service A medical student performed and documented this service in my presence. I reviewed and verified all information documented by the medical student and made modifications to such information, when appropriate. I personally performed the physical exam and medical decision making. Ciera Trent, Jun 05, 2023,05:24 SOARES Jun 04, 2023 12:12 CIERA TRENT DO Jun 05, 2023 05:24
== END 2023-06-04 10:14 | disposition left against medical advice (07) | DRG 193 ==
LOC: EDUNIT# 09:32 → ER 09:33 → ICU 12:49
PROVIDERS: ADMIT Internal Medicine; ATTEND Internal Medicine
DX: J18.9 Pneumonia, unspecified organism (principal); J96.21 Acute and chronic respiratory failure with hypoxia; J44.0 Chronic obstructive pulmonary disease with (acute) lower respiratory infection; J44.1 Chronic obstructive pulmonary disease with (acute) exacerbation; E11.65 Type 2 diabetes mellitus with hyperglycemia; G47.33 Obstructive sleep apnea (adult) (pediatric); I10 Essential (primary) hypertension; F31.9 Bipolar disorder, unspecified; M21.372 Foot drop, left foot; M19.90 Unspecified osteoarthritis, unspecified site; H54.7 Unspecified visual loss; Z87.891 Personal history of nicotine dependence; Z91.09 Other allergy status, other than to drugs and biological substances; Z79.899 Other long term (current) drug therapy; Z79.84 Long term (current) use of oral hypoglycemic drugs; Z79.891 Long term (current) use of opiate analgesic; Z79.1 Long term (current) use of non-steroidal anti-inflammatories (NSAID)
CPT/HCPCS: 36415; 71045; 71275; 80053; 80061; 81000; 82947; 83605; 83735; 83874; 83880; 84100; 84484; 85007; 85025; 85027; 85610; 85730; 86141; 87040; 87081; 87088; 87636; 93005; 93041; 94640

== ENCOUNTER → 2023-06-06 | Outpatient (CLI) | payer OTHER ==
[~2023-06-06] MED LIST changes: +ARIP10TA10 PO; +DAPA10TA PO; +DOXY100C5 PO; +DULO30CA49 PO; +GLIM1TAB4 PO; +IBUP-2473 PO; +MONT-40 PO; +OXCA600T10 PO; +PRD20T PO; +SILD50TA48 PO; +SITA100T12 PO
== END ==
LOC: WOUNDCARE 09:27
PROVIDERS: ATTEND Family Medicine
DX: L97.524 Non-pressure chronic ulcer of other part of left foot with necrosis of bone (principal); E11.621 Type 2 diabetes mellitus with foot ulcer; E11.65 Type 2 diabetes mellitus with hyperglycemia; M14.672 Charcot's joint, left ankle and foot; E11.40 Type 2 diabetes mellitus with diabetic neuropathy, unspecified; Z68.41 Body mass index [BMI] 40.0-44.9, adult; E66.01 Morbid (severe) obesity due to excess calories; B95.0 Streptococcus, group A, as the cause of diseases classified elsewhere; M86.172 Other acute osteomyelitis, left ankle and foot; J96.01 Acute respiratory failure with hypoxia; J44.1 Chronic obstructive pulmonary disease with (acute) exacerbation
CPT/HCPCS: 99212

== ENCOUNTER 2023-06-07 05:03 | Emergency (ER) | payer OTHER ==
[~2023-06-07] VITALS: Ht 177.8 cm; Wt 120.0 kg
[2023-06-07 05:13] VITALS: BP 144/87
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
== END 2023-06-07 05:44 | disposition home or self-care (01) ==
LOC: EDUNIT# 05:03 → ER 05:07
DX: R33.9 Retention of urine, unspecified (principal); E11.9 Type 2 diabetes mellitus without complications; Z79.4 Long term (current) use of insulin; Z87.891 Personal history of nicotine dependence
CPT/HCPCS: 99283

== ENCOUNTER → 2023-07-24 | Outpatient (CLI) | payer OTHER | LOC: WOUNDCARE 08:19 | PROVIDERS: ATTEND Family Medicine | DX: I96 Gangrene, not elsewhere classified (principal); L97.524 Non-pressure chronic ulcer of other part of left foot with necrosis of bone; L97.522 Non-pressure chronic ulcer of other part of left foot with fat layer exposed; E11.621 Type 2 diabetes mellitus with foot ulcer; E11.65 Type 2 diabetes mellitus with hyperglycemia; M86.172 Other acute osteomyelitis, left ankle and foot; M14.672 Charcot's joint, left ankle and foot; E11.40 Type 2 diabetes mellitus with diabetic neuropathy, unspecified; E66.01 Morbid (severe) obesity due to excess calories; Z68.41 Body mass index [BMI] 40.0-44.9, adult; Z59.7 Insufficient social insurance and welfare support; Z91.199 Patient's noncompliance with other medical treatment and regimen due to unspecified reason | CPT/HCPCS: 11042; 83036; 87070; 87077; 87186; 87205; A6197; G0463; 36415 ==

== ENCOUNTER → 2023-08-06 | Outpatient (CLI) | payer SELFPAY | LOC: WOUNDCARE 09:32 | PROVIDERS: ATTEND Family Medicine | DX: I96 Gangrene, not elsewhere classified (principal); E11.621 Type 2 diabetes mellitus with foot ulcer; E11.65 Type 2 diabetes mellitus with hyperglycemia; E11.40 Type 2 diabetes mellitus with diabetic neuropathy, unspecified; L97.524 Non-pressure chronic ulcer of other part of left foot with necrosis of bone; L97.522 Non-pressure chronic ulcer of other part of left foot with fat layer exposed; M14.672 Charcot's joint, left ankle and foot; M86.172 Other acute osteomyelitis, left ankle and foot; E66.01 Morbid (severe) obesity due to excess calories; Z68.41 Body mass index [BMI] 40.0-44.9, adult; Z59.7 Insufficient social insurance and welfare support; Z91.199 Patient's noncompliance with other medical treatment and regimen due to unspecified reason | CPT/HCPCS: 11042; G0463 ==

== ENCOUNTER → 2023-08-13 | Outpatient (CLI) | payer SELFPAY | LOC: WOUNDCARE 09:32 | PROVIDERS: ATTEND Family Medicine | DX: E11.621 Type 2 diabetes mellitus with foot ulcer (principal); E11.65 Type 2 diabetes mellitus with hyperglycemia; E11.40 Type 2 diabetes mellitus with diabetic neuropathy, unspecified; E11.610 Type 2 diabetes mellitus with diabetic neuropathic arthropathy; L97.522 Non-pressure chronic ulcer of other part of left foot with fat layer exposed; E66.01 Morbid (severe) obesity due to excess calories; Z68.41 Body mass index [BMI] 40.0-44.9, adult; Z91.199 Patient's noncompliance with other medical treatment and regimen due to unspecified reason; Z59.7 Insufficient social insurance and welfare support; Z87.891 Personal history of nicotine dependence | CPT/HCPCS: 11042; G0463 ==

== ENCOUNTER → 2023-08-20 | Outpatient (CLI) | payer SELFPAY | LOC: WOUNDCARE 09:32 | PROVIDERS: ATTEND Family Medicine | DX: L97.522 Non-pressure chronic ulcer of other part of left foot with fat layer exposed (principal); E11.621 Type 2 diabetes mellitus with foot ulcer; E11.65 Type 2 diabetes mellitus with hyperglycemia; E09.610 Drug or chemical induced diabetes mellitus with diabetic neuropathic arthropathy; E11.40 Type 2 diabetes mellitus with diabetic neuropathy, unspecified; E66.01 Morbid (severe) obesity due to excess calories; Z68.41 Body mass index [BMI] 40.0-44.9, adult; Z59.7 Insufficient social insurance and welfare support; Z91.190 Patient's noncompliance with other medical treatment and regimen due to financial hardship; E11.52 Type 2 diabetes mellitus with diabetic peripheral angiopathy with gangrene; I96 Gangrene, not elsewhere classified | CPT/HCPCS: 11042; G0463 ==

== ENCOUNTER → 2023-08-27 | Outpatient (CLI) | payer OTHER | LOC: WOUNDCARE 09:31 | PROVIDERS: ATTEND Family Medicine | DX: E11.621 Type 2 diabetes mellitus with foot ulcer (principal); L97.522 Non-pressure chronic ulcer of other part of left foot with fat layer exposed; E11.65 Type 2 diabetes mellitus with hyperglycemia; E09.610 Drug or chemical induced diabetes mellitus with diabetic neuropathic arthropathy; E11.40 Type 2 diabetes mellitus with diabetic neuropathy, unspecified; E66.01 Morbid (severe) obesity due to excess calories; Z68.41 Body mass index [BMI] 40.0-44.9, adult; Z59.7 Insufficient social insurance and welfare support; Z91.190 Patient's noncompliance with other medical treatment and regimen due to financial hardship; E11.52 Type 2 diabetes mellitus with diabetic peripheral angiopathy with gangrene; I96 Gangrene, not elsewhere classified | CPT/HCPCS: 11042; G0463 ==

== ENCOUNTER → 2023-09-03 | Outpatient (CLI) | payer OTHER | LOC: WOUNDCARE 09:30 | PROVIDERS: ATTEND Family Medicine | DX: I96 Gangrene, not elsewhere classified (principal); E11.621 Type 2 diabetes mellitus with foot ulcer; E11.65 Type 2 diabetes mellitus with hyperglycemia; E11.40 Type 2 diabetes mellitus with diabetic neuropathy, unspecified; L97.511 Non-pressure chronic ulcer of other part of right foot limited to breakdown of skin; M14.672 Charcot's joint, left ankle and foot; E66.01 Morbid (severe) obesity due to excess calories; Z68.41 Body mass index [BMI] 40.0-44.9, adult; Z91.190 Patient's noncompliance with other medical treatment and regimen due to financial hardship | CPT/HCPCS: 11042; A6209; G0463 ==

== ENCOUNTER → 2023-09-05 | Outpatient (CLI) | payer OTHER | LOC: WOUNDCARE 09:26 | PROVIDERS: ATTEND Family Medicine | DX: E11.621 Type 2 diabetes mellitus with foot ulcer (principal); E11.65 Type 2 diabetes mellitus with hyperglycemia; E11.40 Type 2 diabetes mellitus with diabetic neuropathy, unspecified; L97.522 Non-pressure chronic ulcer of other part of left foot with fat layer exposed; E11.610 Type 2 diabetes mellitus with diabetic neuropathic arthropathy; E66.01 Morbid (severe) obesity due to excess calories; Z68.41 Body mass index [BMI] 40.0-44.9, adult; Z59.7 Insufficient social insurance and welfare support; Z91.110 Patient's noncompliance with dietary regimen due to financial hardship | CPT/HCPCS: 29445; A6209; G0463 ==

== ENCOUNTER → 2023-09-10 | Outpatient (CLI) | payer SELFPAY | LOC: WOUNDCARE 09:31 | PROVIDERS: ATTEND Family Medicine | DX: E11.621 Type 2 diabetes mellitus with foot ulcer (principal); L97.522 Non-pressure chronic ulcer of other part of left foot with fat layer exposed; E11.65 Type 2 diabetes mellitus with hyperglycemia; E11.40 Type 2 diabetes mellitus with diabetic neuropathy, unspecified; E66.01 Morbid (severe) obesity due to excess calories; Z59.7 Insufficient social insurance and welfare support; Z91.190 Patient's noncompliance with other medical treatment and regimen due to financial hardship; Z68.41 Body mass index [BMI] 40.0-44.9, adult | CPT/HCPCS: 11042; A6209; G0463 ==

== ENCOUNTER → 2023-09-17 | Outpatient (CLI) | payer SELFPAY | LOC: WOUNDCARE 09:29 | PROVIDERS: ATTEND Family Medicine | DX: E11.621 Type 2 diabetes mellitus with foot ulcer (principal); E11.65 Type 2 diabetes mellitus with hyperglycemia; E11.40 Type 2 diabetes mellitus with diabetic neuropathy, unspecified; L97.522 Non-pressure chronic ulcer of other part of left foot with fat layer exposed; M14.672 Charcot's joint, left ankle and foot; E66.01 Morbid (severe) obesity due to excess calories; Z68.41 Body mass index [BMI] 40.0-44.9, adult; Z91.190 Patient's noncompliance with other medical treatment and regimen due to financial hardship; Z59.7 Insufficient social insurance and welfare support | CPT/HCPCS: 11042; A6209; G0463 ==

== ENCOUNTER → 2023-09-24 | Outpatient (CLI) | payer OTHER | LOC: WOUNDCARE 09:29 | PROVIDERS: ATTEND Family Medicine | DX: E11.621 Type 2 diabetes mellitus with foot ulcer (principal); E11.65 Type 2 diabetes mellitus with hyperglycemia; E11.40 Type 2 diabetes mellitus with diabetic neuropathy, unspecified; L97.522 Non-pressure chronic ulcer of other part of left foot with fat layer exposed; M14.672 Charcot's joint, left ankle and foot; E66.01 Morbid (severe) obesity due to excess calories; Z68.41 Body mass index [BMI] 40.0-44.9, adult; Z59.7 Insufficient social insurance and welfare support; Z91.190 Patient's noncompliance with other medical treatment and regimen due to financial hardship | CPT/HCPCS: 97597; A6021; A6209; G0463 ==